=== PATIENT | female | born 2000 | race Caucasian/White ===

== ENCOUNTER 2021-05-11 13:58 | Emergency (ER) | payer OTHER, SELFPAY ==
--- NOTE | 2021-05-11 14:00 | ED.FEMALEGU ---
HPI - Female Genitourinary General Chief complaint: Urogenital-Female Stated complaint: Possible UTI Time Seen by Provider: 05/11/21 14:15 Source: patient and RN notes reviewed Mode of arrival: ambulatory Limitations: no limitations History of Present Illness HPI Narrative: 20-year-old female presents with concern for dysuria frequency and urgency. Reports symptoms started 2 days ago. She reports history of urinary tract infections. She reports abdominal discomfort, denies abdominal pain, back pain, fever. Denies intervention. MD elicited complaint: UTI Related Data Home Medications Medication Instructions Recorded Confirmed ergocalciferol (vitamin D2) 1,250 mcg PO WEEKLY 05/11/21 05/11/21 fluoxetine 40 mg PO DAILY 05/11/21 05/11/21 hydroxyzine HCl 25 mg PO Q6H PRN 05/11/21 05/11/21 levothyroxine 125 mcg PO DAILY 05/11/21 05/11/21 meloxicam 15 mg PO DAILY 05/11/21 05/11/21 Allergies Allergy/AdvReac Type Severity Reaction Status Date / Time No Known Allergies Allergy Verified 05/11/21 14:03 Review of Systems Review of Systems: CONSTITUTIONAL: Denies malaise, chills, sweats, or fever. GASTROINTESTINAL: Denies abdominal pain, nausea, vomiting, diarrhea, bloody, or mucous stools. GENITOURINARY: Reports suprapubic discomfort, frequency, dysuria. Denies urgency or hematuria. SKIN: Denies rash or itching. MUSCULOSKELETAL: Denies back pain or myalgia. All systems reviewed & are unremarkable except as noted in HPI and below PMFSH Comments At time of signature, agree with nursing past medical, surgical, social and family history. There is no relevant family history pertinent to the presenting complaint Exam Narrative: GENERAL: Well-appearing, well-nourished, and in no acute distress. HEAD: Normocephalic. EYES: PERRLA, conjunctivae clear. NECK: Supple. No lymphadenopathy CHEST: Clear to auscultation. No respiratory distress. HEART: Regular rate and rhythm. ABDOMEN: Soft, nontender upon palpation, nondistended, normal active bowel sounds, no palpable or pulsatile masses, no guarding. No CVA tenderness SKIN: Warm, dry, no rash. NEURO: Alert and oriented x3. PSYCH: Normal mood and affect Course Course Emergency Course: Patient is aware of diagnosis, understands and agrees to treatment plan. Anticipatory guidance given. Patient agrees to follow-up as directed and is aware of reasons to seek care at the emergency department. Portions of this record may have been created with voice recognition software Vital Signs Vital signs: Reviewed. MDM - Female Genitourinary MDM Narrative Medical decision making narrative: Exam findings and UA show no acute concerns or changes; patient is non-toxic appearing and is in no distress. Patient is appropriate for outpatient treatment and follow-up. Differential Diagnosis Differential diagnosis: Likely urinary tract infection and cystitis Critical Care Time Critical Care Time Critical Care Time: No Discharge Plan Discharge Clinical Impression: Symptoms of urinary tract infection Patient Disposition: Home, Self-Care Condition: Stable Instructions: Antibiotic Form, Urinary Tract Infection in Women (ED) Additional Instructions: We will send a urine culture to the lab; if the culture identifies an organism that the prescribed antibiotic will not treat, you will receive a phone call from an urgent care staff member and an appropriate antibiotic will be prescribed. -Your symptoms should begin to improve within a day of starting antibiotics. But you should finish all the antibiotic pills you get. Otherwise your infection might come back. -Also recommend: increase water intake. Tylenol/ibuprofen as needed for pain or fever -Follow-up with your primary care provider for urine recheck or seek ER visit if condition worsens with high fever, nausea, vomiting and severe back pain. Prescriptions: New nitrofurantoin monohyd/m-cryst [Macrobid] 100 mg capsule 100 mg PO Q12H
[2021-05-11 14:06] VITALS: BP 135/76; PULSE 88; RESP 18; TEMP 37.1; O2SAT 99
== END 2021-05-11 14:25 | disposition home or self-care (01) ==
PROVIDERS: Emergency Provider Nurse Practitioner; PCP Internal Medicine Geriatric Medicine
DX: R30.0 Dysuria (principal); R35.0 Frequency of micturition; R39.15 Urgency of urination; E03.9 Hypothyroidism, unspecified; E28.2 Polycystic ovarian syndrome; F41.9 Anxiety disorder, unspecified
CPT/HCPCS: 81003; 81025; 87086; 99203; G0463

== ENCOUNTER 2022-03-20 16:12 | Emergency (ER) | payer BC, SELFPAY ==
[2022-03-20 16:26] VITALS: BP 112/73; RESP 16; TEMP 37.1; O2SAT 100
[2022-03-20 16:35] VITALS: BP 112/73; RESP 16; TEMP 37.1; O2SAT 100
--- NOTE | 2022-03-20 17:53 | ED.URI ---
HPI - URI/Sore Throat General Chief Complaint: Upper Respiratory Infection Stated Complaint: sore throat Time Seen by Provider: 03/20/22 17:53 Source: patient, RN notes reviewed and old records reviewed Mode of arrival: ambulatory Limitations: no limitations History of Present Illness HPI Narrative: 21-year-old female who presents to [facility] with a history of 4 days of sore throat with painful swallowing, Patient denies any headache, nasal congestion, ear pain or cough, Patient reports history of strep throat in the past. Patient denies any fevers, chills,or sweats or body aches. Patient has not had COVID vaccinations or flu shot MD elicited complaint: sore throat Treatments prior to arrival: none Related Data Home Medications Medication Instructions Recorded Confirmed fluoxetine 40 mg capsule 20 mg PO DAILY 05/11/21 03/20/22 levothyroxine 125 mcg capsule 125 mcg PO DAILY 05/11/21 03/20/22 Allergies Allergy/AdvReac Type Severity Reaction Status Date / Time Sulfa (Sulfonamide Allergy Rash Verified 03/20/22 16:34 Antibiotics) Review of Systems Review of Systems: CONSTITUTIONAL: Denies fever, chills, or sweats. EYES: Denies visual changes, redness, or discharge. ENT: Denies rhinorrhea, congestion,positive sore throat, no otalgia. CARDIOVASCULAR: Denies chest pain, palpitations, or edema. RESPIRATORY: Denies cough or dyspnea. GASTROINTESTINAL: Denies abdominal pain, nausea, vomiting, or diarrhea. GENITOURINARY: Denies dysuria or hematuria. SKIN: Denies rash or itching. MUSCULOSKELETAL: Denies back pain, joint pain, or myalgia. NEUROLOGIC: Denies headache, numbness, or weakness. PSYCHIATRIC:Positive history of anxiety or depression. All systems reviewed & are unremarkable except as noted in HPI and below PMFSH Past Medical History Medical History (Updated 03/22/22 @ 20:13 by Lesvia Jaime NP) GERD (gastroesophageal reflux disease) Hypothyroidism PCOS (polycystic ovarian syndrome) Strep pharyngitis Surgical History Surgical History (Updated 03/22/22 @ 20:14 by Lesvia Jaime NP) No history of previous surgery Social History Social History (Updated 03/22/22 @ 20:15 by Lesvia Jaime NP) Smoking status: Never smoker Alcohol intake: current Alcohol use details: social Substance use: never Living arrangements: with family Gender identity (if verbalized by the patient): Female Comments At time of signature, agree with nursing past medical, surgical, social and family history. There is no relevant family history pertinent to the presenting complaint Exam Narrative: GENERAL: Well-appearing, well-nourished, and in no acute distress. HEAD: Normocephalic, atraumatic. EYES: PERRLA and EOMI. ENT: Nares clear, no rhinorrhea or epistaxis. Mucous membranes moist.TM's normal with good light reflex, throat red with no lesions tonsil enlarged and red NECK: Supple., lymphadenopathy CHEST: Clear to auscultation. No respiratory distress.SAO2 100% on room air HEART: Regular rate and rhythm. No murmur heard. Normal peripheral pulses. ABDOMEN: Soft, nontender, nondistended, normal active bowel sounds. EXTREMITIES: Normal range of motion. No edema. SKIN: Warm, dry, no rash. NEURO: No focal deficits. Alert and oriented x3. Course Course Level of Care: Express Care Visit Vital Signs Vital signs: Vital Signs Temperature 37.1 C 03/20/22 16:26 Respiratory Rate 16 03/20/22 16:26 Blood Pressure 112/73 03/20/22 16:26 Pulse Oximetry 100 03/20/22 16:26 Oxygen Delivery Room Air 03/20/22 16:26 Temperature 37.1 C 03/20/22 16:35 Respiratory Rate 16 03/20/22 16:35 Blood Pressure 112/73 03/20/22 16:35 Pulse Oximetry 100 03/20/22 16:35 Oxygen Delivery Room Air 03/20/22 16:35 MDM - URI/Sore Throat Differential Diagnosis Differential diagnosis: Likely upper respiratory infection, viral infection, pharyngitis and other (Tonsillitis,strep pharyngitis) Medical
== END 2022-03-20 18:15 | disposition home or self-care (01) ==
PROVIDERS: Emergency Provider Registered Nurse; PCP Internal Medicine Geriatric Medicine
DX: J03.90 Acute tonsillitis, unspecified (principal); K21.9 Gastro-esophageal reflux disease without esophagitis; E03.9 Hypothyroidism, unspecified; E28.2 Polycystic ovarian syndrome
CPT/HCPCS: 87081; 87880; 99213; G0463

== ENCOUNTER 2022-11-22 17:32 | Emergency (ER) | payer BC, SELFPAY ==
[2022-11-22 17:37] VITALS: BP 121/61; PULSE 84; RESP 18; TEMP 36.9; O2SAT 100
--- NOTE | 2022-11-22 17:55 | ED.URI ---
HPI - URI/Sore Throat General Chief Complaint: Upper Respiratory Infection Stated Complaint: sore throat sob Time Seen by Provider: 11/22/22 17:55 Source: patient and RN notes reviewed Mode of arrival: ambulatory Limitations: no limitations History of Present Illness HPI Narrative: 22-year-old female presented for complaint of sinus pressure, sore throat, nonproductive cough, endorses feeling short of breath when coughing. She reports when she is too active and she coughs more. She also reports she feels heaviness on her chest and occasional palpitations. endorses nausea and vomiting, which she relates to the . She is not taking anything for symptoms. She is lethargy, fevers or chills. She denies sick contacts. MD elicited complaint: cough Related Data Home Medications Medication Instructions Recorded Confirmed fluoxetine 40 mg capsule 20 mg PO DAILY 05/11/21 11/22/22 levothyroxine 125 mcg capsule 125 mcg PO DAILY 05/11/21 11/22/22 ondansetron 4 mg disintegrating See Rx Instructions .Route .COMPLEX 11/22/22 11/22/22 tablet vits 75-iron 28 mg-folic See Rx Instructions .Route .COMPLEX 11/22/22 11/22/22 acid 800 mcg-omega3 440 mg oral pack Allergies Allergy/AdvReac Type Severity Reaction Status Date / Time Sulfa (Sulfonamide Allergy Rash Verified 11/22/22 18:11 Antibiotics) Review of Systems Review of Systems: per HPI [facility] Past Medical History Medical History GERD (gastroesophageal reflux disease) Hypothyroidism PCOS (polycystic ovarian syndrome) Strep pharyngitis Surgical History Surgical History No history of previous surgery Social History Social History Smoking status: Never smoker Alcohol intake: current Alcohol use details: social Substance use: never Living arrangements: with family Gender identity (if verbalized by the patient): Female Exam Narrative: GENERAL: mildly Ill-appearing, nontoxic EYES: PERRLA, conjunctivae clear ENT: Mucous membranes moist. TM pearly mcleod with dull light reflex bilaterally; no tragal tenderness. Oropharynx erythematous without lesions or exudate, no drooling, no hoarseness, no trismus, uvula midline. NECK: Supple. No lymphadenopathy CHEST: Clear to auscultation, breath sounds equal. No wheezing, rhonchi, rales, or stridor. No respiratory distress, speaks in full sentences. HEART: Regular rate and rhythm. No murmur heard. SKIN: Warm, dry, no rash. NEURO: Alert and oriented x3. PSYCH: Normal mood and affect Course Course Emergency Course: Patient is aware of diagnosis, understands and agrees to treatment plan. Anticipatory guidance given. Patient agrees to follow-up as directed and is aware of reasons to seek care at the emergency department. Portions of this record may have been created with voice recognition software Level of Care: Express Care Visit Vital Signs Vital signs: Vital Signs Temperature 98.5 F 11/22/22 17:37 Pulse Rate 84 11/22/22 17:37 Respiratory Rate 18 11/22/22 17:37 Blood Pressure 121/61 11/22/22 17:37 Pulse Oximetry 100 11/22/22 17:37 Oxygen Delivery Room Air 11/22/22 17:37 Temperature 98.5 F 11/22/22 17:37 Pulse Rate 84 11/22/22 17:37 Respiratory Rate 18 11/22/22 17:37 Blood Pressure 121/61 11/22/22 17:37 Pulse Oximetry 100 11/22/22 17:37 Oxygen Delivery Room Air 11/22/22 17:37 reviewed MDM - URI/Sore Throat MDM Narrative Medical decision making narrative: strep negative. Covid negative. Results reviewed with patient. Patient had reported shortness of breath, chest heaviness, and heart racing sensation over the last 2 days. With these symptoms she is advised to the emergency room. However she states the symptoms are much better today. If they worsen she will go to
== END 2022-11-22 18:40 | disposition home or self-care (01) ==
PROVIDERS: Emergency Provider Nurse Practitioner Family; PCP Internal Medicine Geriatric Medicine
DX: J06.9 Acute upper respiratory infection, unspecified (principal); E03.9 Hypothyroidism, unspecified
CPT/HCPCS: 87081; 87880; 99213; G0463

== ENCOUNTER 2023-02-13 07:42 | Outpatient (RCR) | payer BC, SELFPAY ==
[2023-02-12 11:58] LABS: Hematocrit 35.7 % (37.0-47.0); Hemoglobin 11.9 g/dL (12.0-15.0)
[2023-02-12 12:40] LABS: Glucose 1 Hour PP 50gm Dose 99 mg/dL
[2023-02-12 13:52] LABS: HIV 1/2 Ab P24 Ag Result Negative (Negative)
[2023-02-13] MEDS: RHO(D) IMMUNE GLOBULIN 300 MCG/2 ML SYRINGE IM (11:04)
== END 2023-02-13 08:00 | disposition home or self-care (01) ==
LOC: ANHLAB 07:42
PROVIDERS: PCP Internal Medicine Geriatric Medicine; Visit Provider Obstetrics & Gynecology
DX: Z11.4 Encounter for screening for human immunodeficiency virus [HIV] (principal); Z29.13 Encounter for prophylactic Rho(D) immune globulin; O36.0130 Maternal care for anti-D [Rh] antibodies, third trimester, not applicable or unspecified; Z3A.00 Weeks of gestation of pregnancy not specified
CPT/HCPCS: 36415; 82947; 85014; 85018; 85461; 86703; 86850; 86900; 86901; 90384; 96372; G0432; J2790

== ENCOUNTER 2023-04-28 16:27 | Inpatient (IN) | payer BC, MEDICAID, SELFPAY ==
[2023-04-28] VITALS (21 sets, daily range): BP systolic 76–121; BP diastolic 56–86; PULSE 69–84; TEMP 36.6–36.8; BMI 36.3
--- NOTE | 2023-04-28 17:16 | LDADM ---
This patient, Amara Pompa, was admitted to Labor/Delivery/Recovery 104 on 04/28/23 at 16:27. Plans for labor, pain management and were discussed with patient. Patient/family oriented to hospital policies and general routines including ID bracelet, bed and alarms, visiting hours, pain management, procedures, bathroom and other care routines, personal items, smoking policy, room service/diet and guest tray routines, infant security routines, and visiting hours. Patient/Family are encouraged to report perceived risks to care and to ask questions if they do not understand what they are told or what they should do. See [facility] for further documentation.
--- NOTE | 2023-04-28 17:20 | WPDANESEPPF ---
Anes - Initial Pre Proc Eval Procedure: Labor Epidural Date/Time: 04/28/23 17:20 Surgeon: Yael Rader MD Pre Op Diagnosis: Labor Pain Pre Op Diagnosis: Induction of Labor Patient Data Age: 22 Gender: F Height: 1.57 m Weight: 90 kg Last Vital Signs O2 Del Method Room Air 04/28/23 17:13 Allergies Allergy/AdvReac Type Severity Reaction Status Date / Time Sulfa (Sulfonamide Allergy Rash Verified 04/10/23 15:30 Antibiotics) Home Medications Medication Instructions Recorded Confirmed Type fluoxetine 40 mg capsule 20 mg PO DAILY 05/11/21 11/22/22 History levothyroxine 125 mcg capsule 175 mcg PO DAILY 05/11/21 11/22/22 History ondansetron 4 mg disintegrating See Rx Instructions .Route 11/22/22 11/22/22 History tablet .COMPLEX PRN Nausea vits 75-iron 28 mg-folic See Rx Instructions .Route .COMPLEX 11/22/22 11/22/22 History acid 800 mcg-omega3 440 mg oral pack Patient hx anesthesia problems: none Family hx anesthesia problems: none Results Review: All pre-operative results and documents have been reviewed as part of the pre-operative evaluation. [facility] Past Medical History Medical History GERD (gastroesophageal reflux disease) Hypothyroidism PCOS (polycystic ovarian syndrome) Strep pharyngitis Surgical History Surgical History No history of previous surgery Family History Family History Grandparent Diabetes mellitus Social History Social History Smoking status: Never smoker Alcohol intake: current Alcohol use details: social Substance use: never Lack of Transportation: No Lack of Food: Never True Current Housing: I Have Housing Concerned About Future Housing: YES Difficulty Paying Gas/Electric Bills: No Difficulty Paying for Meds: No Currently Unemployed: No Education: Don't Know Difficulty w/ Childcare or Family Care: No Living arrangements: with family Gender identity (if verbalized by the patient): Female Spiritual care concerns: No Anes - Eval Final PreProcedure Day of Procedure 04/28/23 17:20 Patient weight: obese Heart: regular rate and rhythm Lungs: clear to auscultation Neurological: alert and oriented Results Review: All pre-operative results and documents have been reviewed as part of the pre-operative evaluation. Informed Consent: The patient's anesthetic plan and its attendant risks and benefits were discussed with the patient/family/POA. Questions were solicited and answers provided to the satisfaction of the patient/family/POA.
[2023-04-28 17:36] LABS: Basophils Percent Auto 0.3 % (0.2-1.2); Eosinophils Absolute Auto 0.4 K/mm3 (0-0.3); Eosinophils Percent Auto 3.5 % (0-4.4); Hematocrit 35.5 % (37.0-47.0); Hemoglobin 11.9 g/dL (12.0-15.0); Immature Granulocyte Absolute 0.04 K/mm3 (0.00-0.031); Immature Granulocyte Percent A 0.3 % (0-0.5); Lymphocytes Absolute Auto 2.47 K/mm3 (0.9-3.2); Lymphocytes Percent Auto 19.9 % (18.3-44.2); Mean Corpuscular HGB Conc 33.5 g/dl (32-36); Mean Corpuscular Hemoglobin 30.5 pg (26-34); Mean Platelet Volume 10.2 fl (7.4-10.4); Monocytes Absolute Auto 0.8 K/mm3 (0.1-0.6); Monocytes Percent Auto 6.4 % (2.6-8.5); Neutrophils Absolute Auto 8.6 K/mm3 (1.3-6.7); Neutrophils Percent Auto 69.6 % (45.5-73.1); Platelet Count Result 328 k/mm3 (150-375); Red Cell Distribution Width 13.3 % (11.5-14.5); White Blood Count 12.4 K/mm3 (4.5-10.0)
[2023-04-28] MEDS: miSOPROStol 25 MCG TABLET PO ×2 (18:10→22:19)
--- NOTE | 2023-04-28 18:14 | PM.IMHP ---
H&P: HPI History of Present Illness Date/Time: 04/28/23 18:14 Chief Complaint: induction of labor Narrative: Amara is a G1 at 39.0 here for elective IOL. complicated by hypothyroidism, CF carrier, RH neg, and anxiety and depression. Also has a slipped lumbar disk, imaging with on unit. GBS neg. Review of Systems Review of Systems: All systems reviewed & are unremarkable except as noted in HPI and below PMFSH Past Medical History Medical History GERD (gastroesophageal reflux disease) Hypothyroidism PCOS (polycystic ovarian syndrome) Strep pharyngitis Surgical History Surgical History No history of previous surgery Family History Family History Grandparent Diabetes mellitus Social History Social History Smoking status: Never smoker Alcohol intake: current Alcohol use details: social Substance use: never Lack of Transportation: No Lack of Food: Never True Current Housing: I Have Housing Concerned About Future Housing: YES Difficulty Paying Gas/Electric Bills: No Difficulty Paying for Meds: No Currently Unemployed: No Education: Don't Know Difficulty w/ Childcare or Family Care: No Living arrangements: with family Gender identity (if verbalized by the patient): Female Spiritual care concerns: No Meds Home Medications and Allergies Home Medications Medication Instructions Recorded Confirmed Type fluoxetine 40 mg capsule 20 mg PO DAILY 05/11/21 04/28/23 History levothyroxine 125 mcg capsule 175 mcg PO DAILY 05/11/21 04/28/23 History ondansetron 4 mg disintegrating See Rx Instructions .Route 11/22/22 04/28/23 History tablet .COMPLEX PRN Nausea vits 75-iron 28 mg-folic See Rx Instructions .Route .COMPLEX 11/22/22 04/28/23 History acid 800 mcg-omega3 440 mg oral pack Allergies Allergy/AdvReac Type Severity Reaction Status Date / Time Sulfa (Sulfonamide Allergy Rash Verified 04/10/23 15:30 Antibiotics) Vital Signs Vital Signs - 24 hr 04/28/23 17:13 04/28/23 17:32 04/28/23 17:27 Temperature 98 F Pulse Rate 84 Blood Pressure 117/72 Oxygen Delivery Room Air 04/28/23 17:46 04/28/23 18:01 Temperature Pulse Rate 78 81 Blood Pressure 118/71 121/76 Oxygen Delivery Exam Const: General: no acute distress Resp: Effort & Inspection: normal respiratory effort Auscultation: clear to auscultation bilaterally Cardio: Rate: regular rate Rhythm: regular rhythm GI: GI Palp: Yes Soft to palpation Extrem: General: normal to inspection H&P: Results Labs Labs: Short CBC 04/28/23 Range/Units 17:08 WBC 12.4 H (4.5-10.0) K/mm3 Hgb 11.9 L (12.0-15.0) g/dL Hct 35.5 L (37.0-47.0) % Plt Count 328 (150-375) k/mm3 Assessment and Plan Assessment and plan (1) Encounter for induction of labor: Code(s): Z34.90 - Encounter for supervision of normal , unspecified, unspecified trimester Status: Acute Plan GBS neg FHT category 1 cytotec x2 then pitocin had anesthesia consult peds to be notified of CF carrier, FOB not tested.
[2023-04-29] VITALS (190 sets, daily range): BP systolic 84–144; BP diastolic 49–107; PULSE 38–164; TEMP 36.4–37.1; O2SAT 82–100
[2023-04-29] MEDS: OXYTOCIN 30 UNITS/NS 500 ML 30 UNITS/500 ML BAG 6 UNITS IV CONT (02:37)
[2023-04-29] MEDS: LACTATED RINGERS 1,000 ML 125 ML IV CONT ×4 (02:38→20:03)
--- NOTE | 2023-04-29 07:30 | PM.OBPNLAB ---
Pain Control Date/time seen: 04/29/23 07:30 Pain control: tolerating well Pelvic Exam Dilation (cm): 1 Effacement (%): 50 station: -2 Amniotic membrane status: Ruptured (clear, IUPC placed) Status status: Category ll Comments: category 1 except for deceleration while on back for AROM. Assessment and Plan Assessment: induction ongoing Plan: continuous present management
[2023-04-29 08:31] LABS: Rapid Plasma Reagin Non-Reactive (NonReactive)
[2023-04-29] MEDS: ONDANSETRON INJ 4 MG/2 ML VIAL IV PUSH ×2 (09:52→16:56)
--- NOTE | 2023-04-29 10:12 | WPDANESEPP ---
Anes - Eval Pre Procedure Procedure: labor epidural Date/Time: 04/29/23 10:12 Preop Diagnosis: labor pain Pre Op Diagnosis: Induction of Labor Patient Data Age: 22 Gender: F Height: 1.57 m Weight: 90 kg Last Vital Signs Temp 37.1 C 04/29/23 02:00 Pulse 83 04/29/23 10:11 BP 117/71 04/29/23 10:11 Pulse Ox 99 04/29/23 10:11 O2 Del Method Room Air 04/28/23 17:13 Allergies Allergy/AdvReac Type Severity Reaction Status Date / Time Sulfa (Sulfonamide Allergy Rash Verified 04/10/23 15:30 Antibiotics) Home Medications Medication Instructions Recorded Confirmed Type fluoxetine 40 mg capsule 20 mg PO DAILY 05/11/21 04/28/23 History levothyroxine 125 mcg capsule 175 mcg PO DAILY 05/11/21 04/28/23 History ondansetron 4 mg disintegrating See Rx Instructions .Route 11/22/22 04/28/23 History tablet .COMPLEX PRN Nausea vits 75-iron 28 mg-folic See Rx Instructions .Route .COMPLEX 11/22/22 04/28/23 History acid 800 mcg-omega3 440 mg oral pack Laboratory Tests 04/28/23 17:08 WBC 12.4 H K/mm3 (4.5-10.0) RBC 3.90 L M/mm3 (4.2-5.4) Hgb 11.9 L g/dL (12.0-15.0) Hct 35.5 L % (37.0-47.0) MCV 91.0 fl (80-100) MCH 30.5 pg (26-34) MCHC 33.5 g/dl (32-36) RDW 13.3 % (11.5-14.5) Plt Count 328 k/mm3 (150-375) MPV 10.2 fl (7.4-10.4) Immature Gran % (Auto) 0.3 % (0-0.5) Neut % (Auto) 69.6 % (45.5-73.1) Lymph % (Auto) 19.9 % (18.3-44.2) [place] % (Auto) 6.4 % (2.6-8.5) Eos % (Auto) 3.5 % (0-4.4) Baso % (Auto) 0.3 % (0.2-1.2) Lymph # (Auto) 2.47 K/mm3 (0.9-3.2) [place] # (Auto) 0.8 H K/mm3 (0.1-0.6) Eos # (Auto) 0.4 H K/mm3 (0-0.3) Baso # (Auto) 0.0 K/mm3 (0.0-0.1) Abs Immat Gran (auto) 0.04 H K/mm3 (0.00-0.031) Absolute Neuts (auto) 8.6 H K/mm3 (1.3-6.7) Absolute Nucleated RBC 0.0 K/mm3 (0.0-0.012) Nucleated RBC % 0.0 % (0.0-0.2) RPR Non-reactive (NonReactive) Blood Type B Negative Antibody Screen Negative Patient hx anesthesia problems: none Family hx anesthesia problems: none Results Review: All pre-operative results and documents have been reviewed as part of the pre-operative evaluation. [facility] Past Medical History Medical History GERD (gastroesophageal reflux disease) Hypothyroidism PCOS (polycystic ovarian syndrome) Strep pharyngitis Surgical History Surgical History No history of previous surgery Family History Family History Grandparent Diabetes mellitus Social History Social History Smoking status: Never smoker Alcohol intake: current Alcohol use details: social Substance use: never Lack of Transportation: No Lack of Food: Never True Current Housing: I Have Housing Concerned About Future Housing: YES Difficulty Paying Gas/Electric Bills: No Difficulty Paying for Meds: No Currently Unemployed: No Education: Don't Know Difficulty w/ Childcare or Family Care: No Living arrangements: with family Gender identity (if verbalized by the patient): Female Spiritual care concerns: No Comments patient has extensive chronic low back pain. reviewed MRI with dr. Molina and agreed epidural was appropriate to place. Did a thorough evaluation of back and discussed risks and benefits with patient. Patient agreed to proceed with epidural placement. [employer] went in L3-4 position. Patient had no parasthesia, pain, or complications with placement. Epidural was uncomplicated. Patient was experiencing bilateral hip and back pain pre placement of epidural and said this is her baseline pain with intermittent bilateral leg pain with labor. Patient was checked on after plac
--- NOTE | 2023-04-29 10:36 | WPDANESEPN ---
Anes - Epidural Procedure Note Date/Time: 04/29/23 0914 Consent: I have discussed with the patient/family/POA, the placement of an epidural catheter and the use of epidural narcotic/local anesthetic for labor analgesia and/or postoperative pain management, including associated potential risks, benefits, complications and side effects. I have discussed alternative methods of labor analgesia and/or postoperative pain management. The patient/family/POA, understand(s) and wish(es) to proceed with epidural narcotic/local anesthetic for labor analgesia and/or postoperative pain management. Time-Out: A pre-procedural Time-Out was completed immediately before starting the procedure and confirmed: Patient Identification, Site, Procedure, Patient Position and the Availability of Requisite Equipment. Clinical Indications: labor pain Epidural Insertion Note Patient position: sitting Skin prep: chlorhexidine Catheter: 19g Arrow FlexTip Plus Technique: Loss of resistance. Level of insertion: L3/4 Length in epidural space (cm): 6 Test dose: 1.5% Lidocaine with 1:[id number] Epi, negative for subarachnoid Inj and negative for intravascular Inj Complications: none
--- NOTE | 2023-04-29 13:27 | PC.NURSE ---
[id number] Introductions were made and G1 mother shared how she would like to feed her baby with . Encouraged mother to place infant [id number] until the first feeding if is stable and to wait on the weight to help stabilize, reduce infant stress, and improve latching by allowing time to explore parent's chest using instincts. Education was shared on how to protect her milk supply with latching and/or using hand expression to remove milk if doesn't latch in the first hour, then finger feed colostrum to the to preserve breast focus. Demonstration given on how to hand express using tool. Resources provided with educational trifold for bonding and feeding . Parents voiced understanding of information and to call if there is a request for assistance.
[2023-04-29] MEDS: diphenhydrAMINE HCl INJ 50 MG/ML VIAL 25 MG IV PUSH (20:03)
--- NOTE | 2023-04-29 22:41 | P.PCNOB_ITS ---
OB - Delivery Note Procedure Delivery date: 04/29/23 Procedure: Events: Elective Induction of Labor Intrapartal Events: Decelerations Induction method: AROM, Per Misoprostol Protocol and Per Pitocin Protocol Delivery monitor: External FHT and Internal Uterine Route of delivery: vacuum extraction Indication for instrumentation: nonreassuring FHR tracing Laceration Description: Vaginal (small) Delivery repair: vicryl Quantitative Blood Loss (ml): 210 Anesthesia type: Epidural Disposition: Floor Narrative: Baby was having deep variables. Great maternal pushing effort, but ROP presentation. Consented for vacuum delivery. With adequate expulsive efforts by the mother, the baby's head was delivered with one truss puller helper one contraction, zero pop offs after the baby spun to OA. The baby's anterior shoulder was delivered under the pubic symphysis without difficulty. The posterior shoulder and the rest of the baby delivered without difficulty. Thick meconium was noted with delivery of the baby's body. The was placed on the mothers chest and suctioned and stimulated. The cord was clamped and cut after 60 seconds. Mother and baby both stable. [place] Baby Date of : 04/29/23 Time of : 22:21 Weeks of gestation at delivery: 39 Infant gender: Female Weight (pounds): 6 Weight (ounces): 14 presentation: vertex Placenta delivery description: Spontaneous Cord Vessel Description: 3 Vessels and Delayed Cord Clamping score one minute: 8 score five minutes: 9
[2023-04-29] MEDS: OXYTOCIN 30 UNITS/NS 500 ML 30 UNITS/500 ML BAG 125 UNITS IV CONT (22:50)
[2023-04-29] MEDS: ACETAMINOPHEN 325 MG TABLET 650 MG PO (23:28)
[2023-04-29] MEDS: BENZOCAINE 20% AER SPR (*SP) 56 GM CAN 1 SPRAY TOPICAL (23:30)
[2023-04-29] MEDS: WITCH HAZEL 40 PADS 1 PAD TOPICAL (23:30)
[2023-04-30] VITALS (7 sets, daily range): BP systolic 105–118; BP diastolic 66–81; PULSE 66–84; RESP 16–18; TEMP 36.6–36.9; O2SAT 98–100
--- NOTE | 2023-04-30 01:42 | ADMGEN ---
This patient, Amara Pompa, was admitted to OB 2nd Floor Room 277-00. Patient/family oriented to hospital policies and general routines including ID bracelet, bed and alarms, visiting hours, pain management, procedures, bathroom and other care routines, personal items, smoking policy, room service/diet, and visiting hours. Information on how to activate the Rapid Response Team has been discussed. Patient/Family are encouraged to report perceived risks to care and to ask questions if they do not understand what they are told or what they should do.
[2023-04-30 05:31] LABS: Hematocrit 32.1 % (37.0-47.0); Hemoglobin 10.8 g/dL (12.0-15.0)
[2023-04-30] MEDS: LEVOTHYROXINE SODIUM 25 MCG TABLET PO (07:25)
[2023-04-30] MEDS: MULTIVIT/MIN/PREN/FOL AC/IRON TABLET 1 TAB PO (07:26)
[2023-04-30] MEDS: IBUPROFEN 600 MG TABLET PO (07:26)
[2023-04-30] MEDS: LEVOTHYROXINE SODIUM 150 MCG TABLET PO (07:26)
[2023-04-30] MEDS: FLUoxetine HCL 20 MG CAPSULE PO (07:26)
[2023-04-30] MEDS: DOCUSATE SODIUM 100 MG CAPSULE PO ×2 (07:26→16:34)
--- NOTE | 2023-04-30 07:36 | P.PNOB_ITS ---
OB - PN: Subj Subjective Date/time seen: 04/30/23 07:36 Patient comments: no complaints and pain well controlled baby status: doing well [place] feeding status: breast and bottle feeding OB - PN: Obj Data Labs 04/30/23 04:48 Labs: Laboratory Results - last 24 hr 04/28/23 04/30/23 17:08 04:48 Hgb 10.8 L Hct 32.1 L RPR Non-reactive OB - PN A/P Plan day: 1 Plan: routine care Comments: consult today home tomorrow Time Spent With Patient Time: Total time spent is greater than 50% in coordination of care (as documented) at patient's floor/unit and/or counseling patient: Time with patient: less than 15 minutes Exam Narrative: NAD abdomen soft, nontender, fundus firm below the umbilicus Extremities nontender, 1+ edema
--- NOTE | 2023-04-30 07:51 | WPDANLDPN2 ---
Anes-Prog Note L&D Date/Time: 04/30/23 07:51 Comfortable throughout: labor and delivery Neuraxial method: epidural Epidural/Spinal procedure site: clean & non-tender Neuro status: Neuro function grossly intact. Cardiovascular status: normal Respiratory status: normal Airway patency: baseline Mental status: baseline Post-Op hydration status: normal Vital Signs: Last Vital Signs Temp 98.0 F 04/30/23 05:07 Pulse 73 04/30/23 05:07 Resp 18 04/30/23 05:07 BP 118/78 04/30/23 05:07 Pulse Ox 100 04/29/23 22:20 O2 Del Method Room Air 04/30/23 01:45 Pain score (VAS): 0/10 I/O: Intake & Output 04/29/23 04/29/23 04/30/23 15:59 23:59 07:59 Intake Total 1999 1000 Output Total 210 200 Balance 1999 790 -200 Post-procedural complaints: none Patient feedback: Patient satisfied with anesthetic care.
--- NOTE | 2023-04-30 11:21 | PC.NURSE ---
[id number] Re-introductions were made and mother states some feedings have been better than others. is in the nursery for Beer Cooler assessment. Mother has decided to breast/bottle feeding her , however, states that her infant latched and breastfed for 10 minutes without pain and did very well. Reviewed milk production and protecting the milk supply with removal of milk frequently. Mother voiced understanding of calling for assistance if the infant doesn't latch, is sleepy reluctant to breastfeed, or there's is pain with the latch. Reported to the Primary RN
[2023-04-30] MEDS: ACETAMINOPHEN 325 MG TABLET 650 MG PO ×2 (12:12→18:27)
[2023-05-01] MEDS: ACETAMINOPHEN 325 MG TABLET 650 MG PO ×2 (04:01→10:22)
[2023-05-01] MEDS: FLUoxetine HCL 20 MG CAPSULE PO (07:28)
[2023-05-01] MEDS: LEVOTHYROXINE SODIUM 150 MCG TABLET PO (07:28)
[2023-05-01] MEDS: DOCUSATE SODIUM 100 MG CAPSULE PO (07:28)
[2023-05-01] MEDS: LEVOTHYROXINE SODIUM 25 MCG TABLET PO (07:28)
[2023-05-01] MEDS: MULTIVIT/MIN/PREN/FOL AC/IRON TABLET 1 TAB PO (07:28)
--- NOTE | 2023-05-01 08:09 | PM.OBPNVD ---
OB - PN: Subj Subjective Date/time seen: 05/01/23 08:09 Patient comments: no complaints, pain well controlled and tolerating diet OB - PN: Obj Data Labs 04/30/23 04:48 OB - PN A/P Plan day: 2 Plan: routine care and discharge home Time Spent With Patient Time: Total time spent is greater than 50% in coordination of care (as documented) at patient's floor/unit and/or counseling patient: Exam Const: General: comfortable and no acute distress Resp: Effort & Inspection: normal respiratory effort Auscultation: no rales, no rhonchi and no wheezes Cardio: Rate: regular rate Heart sounds: no click, no murmurs and no rubs GI: GI Palp: Yes Soft to palpation and No Tenderness to palpation present (GI) Auscultation: normal bowel sounds Extrem: General: normal to inspection, no pedal edema and no calf tenderness
--- NOTE | 2023-05-01 08:10 | PM.OBDSVD ---
DS: Admitting Diagnosis Discharge Date May 01, 2023 Admitting Diagnosis term DS: Discharge Diagnosis Discharge Diagnosis (1) Term : Code(s): Z34.90 - Encounter for supervision of normal , unspecified, unspecified trimester Status: Acute OB - DS: Summary OB Procedures : None OB Procedures Intrapartum: Spontaneous Vag Delivery OB Procedures: : None Time Spent with Patient Time attestation: Total time spent providing and/or coordinating discharge services: Discharge Plan Discharge Discharging Clinician: Ghanshyam Gorman Patient Disposition: Home, Self-Care Activity: pelvic rest Diet: regular Patient Instructions: Antibiotic Form Stand Alone Forms: General Discharge Information Follow-up/Referrals: Ghanshyam Gorman MD [Physician] - Discharge Medications: Continued fluoxetine 40 mg capsule 20 mg PO DAILY levothyroxine 125 mcg capsule 175 mcg PO DAILY ondansetron 4 mg tablet,disintegrating See Rx Instructions .ROUTE .COMPLEX PRN (Reason: Nausea) Rx Instructions: as prescribed Daily [phone] mg-mcg-mg Combo Pack See Rx Instructions .ROUTE .COMPLEX Rx Instructions: as prescribed Date of admission: 04/28/23 16:27 Primary Care Provider: Tonia,Becki Admitting Provider: Yael Rader Attending physician on admission: Yael Rader Condition: Stable
[2023-05-01 08:20] VITALS: BP 125/82; PULSE 74; RESP 16; TEMP 37.2; O2SAT 100
--- NOTE | 2023-05-01 10:24 | PC.NURSE ---
Patient viewed the discharge video Mother & Baby Care, The First Two Weeks . Patient was given the opportunity and encouraged to ask questions. Patient verbalized understanding of information shared and has been given the mother/baby guide for home reference.
[2023-05-02 13:47] VITALS: BP 125/83; PULSE 88; RESP 18; TEMP 36.9; O2SAT 100
== END 2023-05-01 11:33 | disposition home or self-care (01) | DRG 807 ==
LOC: ANHOB2 05-01 10:27 → ANHLDR 05-02 10:00 → ANHOB2 05-02 10:00
PROVIDERS: Admitting Provider Obstetrics & Gynecology; PCP Internal Medicine Geriatric Medicine; Visit Provider Obstetrics & Gynecology
DX: O26.893 Other specified pregnancy related conditions, third trimester (principal); Z37.0 Single live birth; Z3A.39 39 weeks gestation of pregnancy; Z14.1 Cystic fibrosis carrier; Z67.91 Unspecified blood type, Rh negative; O77.0 Labor and delivery complicated by meconium in amniotic fluid; O71.4 Obstetric high vaginal laceration alone; O36.8330 Maternal care for abnormalities of the fetal heart rate or rhythm, third trimester, not applicable or unspecified; O99.344 Other mental disorders complicating childbirth; F32.A Depression, unspecified; F41.9 Anxiety disorder, unspecified; O99.284 Endocrine, nutritional and metabolic diseases complicating childbirth; E03.9 Hypothyroidism, unspecified; O99.892 Other specified diseases and conditions complicating childbirth; M51.26 Other intervertebral disc displacement, lumbar region
CPT/HCPCS: 36415; 85014; 85018; 85025; 86592; 86850; 86900; 86901; A9270; J1200; J2405; J2590; J2795; J7120

== ENCOUNTER 2025-05-04 08:10 | Emergency (ER) | payer BC, SELFPAY ==
[2025-05-04 08:14] VITALS: BP 118/73; PULSE 72; RESP 16; TEMP 36.4; O2SAT 100
--- OUTSIDE RECORDS SUMMARY | 2025-05-04 08:20 | XMS_ITS | Encounter Summary ---
Author Organization [facility] Address [address] [place] [address] Phone Care Team Providers Care Customer Support Consultant Name Role Phone Nupur Noonan MD Primary Care Provider [phone] Becki Randall MD Primary Care Provider + [phone] Brenda Stringer MD Unavailable [phone] Esther Aguilar MD Unavailable [phone] José Dominguez Unavailable Frankie Jewell MD Unavailable [phone] Encounter Details Date Type Department Care Team (Late st Contact Info) Description 08/22/2017 Orders Only [facility] [address] [place] [address] Becki Randall MD [address] [place] [id number] Social History Tobacco Use Types Packs/Day Years Used Date Smoking Tobacco: Never Assessed Comments Unknown Sex and Gender Information Value Date Recorded Sex Assigned at Not on file Legal Sex Female 3:39 PM ZIPPER SETTER CHAINSTITCH Gender Identity Not on file Sexual Orientation Not on file documented as of this encounter Plan of Treatment Not on file documented as of this encounter Procedures Procedure Name Priority Date/Time Associated Diagnosis Comments SCAN - LABS 08/22/2017 2:39 PM ZIPPER SETTER CHAINSTITCH documented in this encounter Results * SCAN - LABS (08/22/2017 2:39 PM ZIPPER SETTER CHAINSTITCH) us Becki Randall MD Final Resu lt documented in this encounter Visit Diagnoses Not on filedocumented in this encounter Care Teams Customer Support Consultant Relationship Specialty Start Date End Date Nupur Noonan MD [address] [place] [address] PCP - General 01/07/17 10/13/17 Becki Randall MD [address] [place] [address] PCP - General Internal Medicine 10/14/17 Brenda Stringer MD [address] [place] [address] Gynecology 10/14/17 Esther Aguilar MD [address] [place] [address] Surgeon Anesthesiology 10/14/17 José Dominguez OD [address] [place] [address] Optometry 10/14/17 Frankie Jewell MD [address] [place] [address] Referring Physician Neurosurgery 10/16/20 documented as of this encounter
--- OUTSIDE RECORDS SUMMARY | 2025-05-04 08:20 | XMS_ITS | Encounter Summary ---
Author Organization [facility] Address [address] [place] [address] Phone Care Team Providers Care Raker Buffing Wheel Name Role Phone Nupur Noonan MD Primary Care Provider [phone] Becki Radnall MD Primary Care Provider + [phone] Brenda Stringer MD Unavailable [phone] Esther Aguilar MD Unavailable [phone] José Dominguez Unavailable Frankie Jewell MD Unavailable [phone] Encounter Details Date Type Department Care Team (Late st Contact Info) Description 08/22/2017 Orders Only [facility] [address] [place] [address] Becki Randall MD [address] [place] [id number] Social History Tobacco Use Types Packs/Day Years Used Date Smoking Tobacco: Never Assessed Comments Unknown Sex and Gender Information Value Date Recorded Sex Assigned at Not on file Legal Sex Female 3:39 PM AIR FORCE SENIOR OFFICER Gender Identity Not on file Sexual Orientation Not on file documented as of this encounter Plan of Treatment Not on file documented as of this encounter Procedures Procedure Name Priority Date/Time Associated Diagnosis Comments SCAN - LABS 08/22/2017 2:39 PM AIR FORCE SENIOR OFFICER documented in this encounter Results * SCAN - LABS (08/22/2017 2:39 PM AIR FORCE SENIOR OFFICER) us Becki Randall MD Final Resu lt documented in this encounter Visit Diagnoses Not on filedocumented in this encounter Care Teams Raker Buffing Wheel Relationship Specialty Start Date End Date Nupur Noonan MD [address] [place] [address] PCP - General 01/07/17 10/13/17 Becki Randall MD [address] [place] [address] PCP - General Internal Medicine 10/14/17 Brenda Stringer MD [address] [place] [address] Gynecology 10/14/17 Esther Aguilar MD [address] [place] [address] Surgeon Anesthesiology 10/14/17 José Dominguez OD [address] [place] [address] Optometry 10/14/17 Frankie Jewell MD [address] [place] [address] Referring Physician Neurosurgery 10/16/20 documented as of this encounter
--- OUTSIDE RECORDS SUMMARY | 2025-05-04 08:20 | XMS_ITS | Referral Summary ---
Author Organization [facility] [address] Address [address] [place] [address] Phone Care Team Providers Care Bridge Tender Name Role Phone Becki Randall MD Primary Care Provider [phone] Brenda Stringer MD Unavailable [phone] Esther Aguilar MD Unavailable [phone] José Dominguez OD Unavailable Frankie Jewell MD Unavailable [phone] Encounters Date Type Department Care Team Description 04/11/2025 Telephone [employer] [employer] [facility] [address] [place] [address] Cindy Gonsales, TRANSPLANT NURSE from Last 3 Months Allergies Active Allergy Reactions Criticality Noted Date Comments Sulfamethoxazole Hives Medium Reaction: 8, 99 hives, Medications FLUoxetine (PROzac) 20 mg capsule Take 20 mg by mouth daily Active levothyroxine (SYNTHROID) 50 mcg tablet Take 1 daily 30 tablet 1 05/08/2022 Active Active Problems Problem Noted Date Diagnosed Date Visit for screening 04/04/2023 Syncope 05/08/2022 Gastroesophageal reflux disease 03/19/2022 Overview (03/19/2022): Added automatically from request for surgery [id number] Assessment & Plan (07/07/2023 8:56 PM CDT): Continue omeprazole as rxd, see plan for RUQ pain above. Nausea and vomiting 08/15/2021 Assessment & Plan (08/15/2021 5:00 PM TRANSPORTATION WORKER): After discussion today, we will go ahead and get first a blood test. If this is negative, we will proceed with a CT of the abdomen and pelvis with contrast. We will also refer her to GI as well. We will also get a CBC and CMP today. She should see Dr. BRYAN sometime after October 16 for her annual appt. Thoracic spinal stenosis 10/13/2020 Overview (10/16/2020): 2017 fell down 1 step onto the midthoracic spine Treated by Dr. Aguilar pain management with successful injections Refer to Dr. Avni Jewell October 2020 T11-12 spinal stenosis on MRI October 2020 the, From the MRI T 10-11: Shallow central disc protrusion slightly indenting the ventral thecal sac. No spinal canal stenosis. Neural foraminal stenosis. T11-12: Small-moderate left subarticular disc protrusion slightly indenting the left eccentric ventral spinal cord. Mild bilateral facet arthropathy. Mild left eccentric spinal canal stenosis. No neural foraminal stenosis. LUMBAR CORD/CAUDA: Normal in size and signal intensity with conus medullaris termination at L1. Chronic midline thoracic back pain 09/21/2020 Thoracolumbar back pain 08/22/2020 Assessment & Plan (08/22/2020 3:32 PM TRANSPORTATION WORKER): Patient presents with acute low back pain mid lumbar spine with some radiation to the buttocks. Reflexes intact. She has limited ROM with flexion and rotation of the lumbar spine. Xray done at ER and no acute fracture or misalignment noted. She will continue with pain medication, steroids and muscle relaxer as prescribed to ER. She will be referred for chiropractic management and physical therapy. Will return in 4 weeks for follow up or sooner if needed. RUQ abdominal pain 02/01/2020 Assessment & Plan (07/07/2023 8:55 PM CDT): Worse in the last 3 weeks, see HPI for details. Labs from ER on 06/17/23 were unremarkable. No recent imaging. Tenderness diffusely to epigastric and RUQ. positive Peralta's sign. No mass or other acute findings. Will order RUQ US to r/o gallbladder disease/stones, mass, or any other acute structural changes. Continue Omeprazole daily and Tums PRN. [place] diet- low acid, no greasy or spicy. Kyrie ivan or kyrie containing foods may help with nausea. Stay hydrated. Irritable bowel syndrome with diarrhea 0 PCOS (polycystic ovarian syndrome) 10/14/2017 Overview (10/14/2017): Images from the original note were not included. Followed by Dr. Stringer with hormone monitoring, control pills, Pelvic sonogram (-) Primary amenorrhea 10/14/2017 Overview (10/14/2017): Evaluated by Dr. Stringer diagnosed with polycystic ovary syndrome and stop started menses after hormonal management with Provera. Then was followed up on control pills Obesity (BMI 30-39.9) 08/09/2017 Overview (08/30/2017): Images from the original note were not included. PCOS labs from Dr. Torres December 2016 Hypothyroidism, adult 08/20/2011 Overview (01/09/2017): Hypothyroid Resolved Problems Problem Noted Date Diagnosed Date Resolved Date Rectal bleeding 03/19/2022 07/07/2023 Overview (03/19/2022): Added automatically from request for surgery [id number] Bloody stools 03/08/2022 07/07/2023 Assessment & Plan (03/08/2022 3:35 PM CDT): Patient presents with reports of bright red stools x 2 weeks. She reports noted on toilet paper and in the stool. She has also reported some clots. On exam guaiac is positive with pink mucus like stool observed. She has no obvious hemorrhoids on exam. She does admit to some nausea at times (this is chronic) and feeling lightheaded recently. On exam she is afebrile and VSS. She had CT last year at [facility] that was without acute finding. She denies any current NSAID use and reports only took prescribed mobic twice. Discussed with Dr. Fonseca given associated symptoms we will do labs today to look for any anemia, abnormal electrolytes or LFTs. Will also check inflammatory markers. We will refer to GI as well. Did stress with patient should symptoms progress or worsen over the weekend she should go directly to the ER. Patient voiced understanding. Allergic reaction 01/01/2021 07/07/2023 Assessment & Plan (01/01/2021 10:57 AM CDT): Pt was cutting trails and burning brush on Friday and then reports that yesterday she began to feel itchy and noticed a rash forming on her chest, abdomen and L arm. This morning she reports that she woke up with eyelid swelling. She denies any difficulty breathing or any problems swallowing today. Pt states that she thinks this is poison saniya. We will give her 80mg depomedrol today. I have encouraged her to continue benadryl as she has been. I have advised that she is to go to the ER if the swelling does not improve as she may need IV meds. She verbalized understanding. Intractable vomiting 01/17/2020 020 Assessment & Plan (01/17/2020 4:06 PM CDT): Etiology unclear at this time. We will do urine HCG as she does report that she is 2 weeks late on menstrual cycle despite compliance with control. We will also do CBC and CMP to r/o any infectious source and electrolyte disturbance. If test negative will proceed with further imaging studies of the abdomen. At this time she was encouraged to push her fluids and keep her diet bland with the BRAT diet. Informed patient will call her tomorrow with test results and further orders Diarrhea 01/17/2020 04/17/2020 Assessment & Plan (01/17/2020 4:08 PM CDT): Etiology unclear at this time. Stool for guaiac was negative. Labs are pending. If urine negative will need possible CT of the abdomen pelvis to r/o any possible obstruction, cholecystitis or inflammatory source. Patient is to call or proceed to ER with worsening or persistent symptoms. Understanding verbalized. Cause of injury, fall 10/14/20172019 Overview (10/14/2017): Images from the original note were not included. Lumbar spine pain after fall down 1 stair at [facility] Periodontal disease 10/14/2017 07/07/20 23 Infectious warts 03/27/2015 08/09/2017 Overview (01/10/2017): Warts Delayed menarche 08/10/2013 08/09/2017 Overview (01/09/2017): Delayed menarche Heartburn 12/30/2012 08/09/2017 Overview (01/10/2017): Heart burn Myopia 07/06/2012 08/09/2017 Overview (01/09/2017): Myopia Sinusitis 07/06/2012 08/09/2017 Overview (01/09/2017): Sinusitis Vitamin D deficiency 07/06/2012 017 Overview (01/09/2017): Vitamin D deficiency disease History of glandular fever 07/06/2012 1 10/09/2016 Overview (01/09/2017): History of infectious mononucleosis Immunizations Immunization Administration Dates Next Due DTaP 05/10/2003, 9,1998,09/18,1998 Hep B, Adolescent or Pediatric 1998,1997,1998 Hib (HbOC) 08/24/1999, 9,1998,07/19 IPV 05/10/2003, 9,1998,07/19 Influenza, Split 08/10/2013,07/06/2012 Influenza, Trivalent, Cell Culture-based MDCK, Preservative Free, Antibiotic Free, Intramuscular 07/20/2014 Influenza, Trivalent, IM (MDV) 07/12/2015,2010 Influenza, Unspecified 09/07/2020 MMR 05/10/2003,05/23/1999 Meningococcal MCV4P (Menactra) 08/30/2014 Meningococcal Polysaccharide (Menomune) 08/21/2011 Tdap 04/17/2020,08/21/2010 Social History Tobacco Use Types Packs/Day Years Used Date Smoking Tobacco: Never Smokeless Tobacco: Never Tobacco Cessation:Counseling Given: Yes Alcohol Use Standard Drinks/Week Comments Yes 0 (1 standard drink = 0.6 oz pur e alcohol) occassional AUDIT-C Answer Date Recorded Q1: How often do you have a drink containing alc ohol? Monthly or less 03/27/2022 Q2: How many drinks containi ng alcohol do you have on a typical day when you are drinking? 1 or 2 03/27/2022 Q3: How often do you have si x or more drinks on one occasion? Never 03/27/2022 PHQ-2 Answer Date Recorded PHQ-2 Total Score (If total score is 3 or more points, staff should administer the PHQ-9) 0 03/19/2022 Comments No Sex and Gender Information Value Date Recorded Sex Assigned at Not on file Legal Sex Female 3:39 PM TRANSPORTATION WORKER Gender Identity Not on file Sexual Orientation Not on file Last Filed Vital Signs Vital Sign Reading Time Taken Comments Blood Pressure 100/62 07/07/2023 2:25 PM CDT Pulse 72 07/07/2023 2:25 PM CDT Temperature 36.5 C (97.7 F) 07/07/2023 2:25 PM CDT Respiratory Rate 16 07/07/2023 2:25 PM CDT Oxygen Saturation 99% 07/07/2023 2:25 PM CDT Inhaled Oxygen Concentration - - Weight 80.7 kg (178 lb) 07/07/2023 2:25 PM CDT Height 157.5 cm (5' 2) 05/08/2022 8:30 AM CDT Body Mass Index 32.56 05/08/2022 8:30 AM CDT Plan of Treatment Not on file Insurance [employer] [facility] [employer] [place] [facility] [employer] [place] Advance Directives For more information, please contact: [phone] Documents on File Type Date Recorded Patient Superannuation Clerk Expl anation ADVANCE DIRECTIVE 04/17/2020 POWER OF A [employer] Care Teams Bridge Tender Relationship Specialty Start Date End Date Becki Randall MD PCP - General Internal Medicine 10/14/17 Brenda Stringer MD [address] [place], [place] [id number] Gynecology 10/14/17 Esther Aguilar MD [address] [place] [address] Surgeon Anesthesiology 10/14/17 José Dominguez OD [address] [place] [address] Optometry 10/14/17 Frankie Jewell MD [address] [place] [address] Referring Physician Neurosurgery 10/16/20
--- OUTSIDE RECORDS SUMMARY | 2025-05-04 08:20 | XMS_ITS | Clinical Summary ---
Author Organization [facility] Address [address] [place] [address] Phone Care Team Providers Care Manager Port Name Role Phone Becki Randall MD Primary Care Provider [phone] Allergies Active Allergy Reactions Criticality Noted Date Comments Sulfa (Sulfonamide Antibiotics) Unknown 06/2021 Sulfamethoxazole-Trimethoprim Unknown 2020 Medications levothyroxine 100 mcg tablet Take 100 mcg by mouth daily in the morning. Active FLUoxetine (PROzac) 20 mg tablet Take 20 mg by mouth daily. Active Active Problems No known active problems Family History Medical History Relation Name Comments Lung Cancer Maternal Grandfather Diabetes Maternal Grandmother Type II Heart Disease Maternal Grandmother High Cholesterol Maternal Grandmother Uterine Cancer Maternal Grandmother Colon Cancer Paternal Grandfather Ovarian Cancer Paternal Grandmother Relation Name Status Comments Maternal Grandfather Maternal Grandmother Paternal Grandfather Paternal Grandmother Social History Tobacco Use Types Packs/Day Years Used Date Smoking Tobacco: Never Smokeless Tobacco: Never Alcohol Use Standard Drinks/Week Comments Yes 0 (1 standard drink = 0.6 oz pur e alcohol) Comments Unknown Sex and Gender Information Value Date Recorded Sex Assigned at Not on file Legal Sex Female 1:51 PM TACK PULLER Gender Identity Not on file Sexual Orientation Not on file Last Filed Vital Signs Vital Sign Reading Time Taken Comments Blood Pressure 96/81 11/28/2020 10:57 AM TACK PULLER Pulse 89 11/28/2020 10:57 AM TACK PULLER Temperature 37 C (98.6 F) 11/28/2020 10:57 AM TACK PULLER Respiratory Rate - - Oxygen Saturation - - Inhaled Oxygen Concentration - - Weight 88 kg (194 lb) 11/28/2020 10:57 AM TACK PULLER Height 157.5 cm (5' 2) 11/28/2020 10:57 AM TACK PULLER Body Mass Index 35.48 11/28/2020 10:57 AM TACK PULLER Plan of Treatment Health Maintenance Due Date Last Done Comments HPV VACCINES (1 - 3-dose series) 2013 DTAP/TDAP/TD VACCINES (1 - Tdap) 2017 HEPATITIS B VACCINES (1 of 3 - 19+ 3-dose series) 05/06 CERVICAL CANCER SCREENING 2019 HPV/Cotest (21-29) 2019 PAP SMEAR 2019 INFLUENZA VACCINE (#1) 2025 Care Teams Manager Port Relationship Specialty Start Date End Date Becki Randall MD [address] [place] [address] PCP - General Internal Medicine 10/18/20
--- OUTSIDE RECORDS SUMMARY | 2025-05-04 08:20 | XMS_ITS | Clinical Summary ---
Author Organization [facility] [address] Address [address] [place] [address] Phone Care Team Providers Care Supersonic Engineer Name Role Phone Becki Randall MD Primary Care Provider [phone] Brenda Stringer MD Unavailable [phone] Esther Aguilar MD Unavailable [phone] José Dominguez OD Unavailable Frankie Jewell MD Unavailable Allergies Active Allergy Reactions Criticality Noted Date [...] (03/19/2022): Added automatically from request for surgery [id number] Assessment & Plan (07/07/2023 8:56 PM CDT): Continue omeprazole as rxd, see plan for RUQ pain above. Nausea and vomiting 08/15/2021 Assessment & Plan (08/15/2021 5:00 PM 1ST GRADE TEACHER): After discussion today, we will go ahead [...] 08/22/2020 Assessment & Plan (08/22/2020 3:32 PM 1ST GRADE TEACHER): Patient presents with acute low back pain [...] changes. Continue Omeprazole daily and Tums PRN. Richardson diet- low acid, no greasy or spicy. [...] (03/19/2022): Added automatically from request for surgery [id number] Bloody stools 03/08/2022 07/07/2023 Assessment & Plan [...] pain after fall down 1 [address] at [facility] Periodontal disease 10/14/2017 07/07/20 23 Infectious warts 03/27/2015 08/09/2017 Overview (01/10/2017): Warts Delayed menarche 08/10/2013 08/09/2017 Overview (01/09/2017): Delayed menarche Heartburn 12/30/2012 08/09/2017 Overview (01/10/2017): Heart burn Myopia 07/06/2012 08/09/2017 Overview (01/09/2017): Myopia Sinusitis 07/06/2012 08/09/2017 Overview (01/09/2017): Sinusitis Vitamin D deficiency 07/06/2012 017 Overview (01/09/2017): Vitamin D deficiency disease History of glandular fever 07/06/2012 1 10/09/2016 Overview (01/09/2017): History of infectious mononucleosis Encounters Date Type Department Care Team Description 04/11/2025 Telephone [employer] [facility] [address] [place] [id number] Cindy Gonsales, CARBON COATER MACHINE OPERATOR from Last 3 Months Immunizations Immunization Administration Dates Next Due DTaP 05/10/2003, 9,1998,09/18,1998 Hep B, Adolescent or Pediatric 1998,1997,1998 Hib (HbOC) 08/24/1999, 9,1998,07/19 IPV 05/10/2003, 9,1998,07/19 Influenza, Split 08/10/2013,07/06/2012 Influenza, Trivalent, Cell Culture-based MDCK, Preservative Free, Antibiotic Free, Intramuscular 07/20/2014 Influenza, Trivalent, IM (MDV) 07/12/2015,2010 Influenza, Unspecified 09/07/2020 MMR 05/10/2003,05/23/1999 Meningococcal MCV4P (Menactra) 08/30/2014 Meningococcal Polysaccharide (Menomune) 08/21/2011 Tdap 04/17/2020,08/21/2010 Surgical History Surgery Date Site/Laterality Comments OTHER SURGICAL HISTORY 7-4 40 wks to 24 y G1: Vaginal delivery [facility] COLONOSCOPY 03/27/2022 (-) HEIDI Paulino (-) colonoscopy done for blood in stool ESOPHAGOGASTRODUODENOSCOPY 03/27/2022 (-) HEIDI Paulino done for blood in the stool Medical History Medical History Date Comments Hx Other Medical 1998 7-4 40 wks to [age] y G1 Hx Other Medical 2009 R ankle injury Hx Other Medical 2006 Concussion Hypothyroid 2009 PCOS (polycystic ovarian syndrome) 2015 GERD (gastroesophageal reflux disease) Family History Medical History Relation Name Comments Hyperlipidemia Other 1 Family histor y of Hyperlipidemia; Allergies Other 2 Family history of Allergies; Diabetes Other 3 Family history of Diabetes mellitus; Hypertension Other 4 Family history of Hypertension; Other Other 5 No family histo ry of Sudden <50; Stroke Other 6 Family history of Stroke; Colon cancer Other 7 family history Lung cancer Other 7 family history Ovarian cancer Other 7 family histor y Relation Name Status Comments Other 1 Other 2 Other 3 Other 4 Other 5 Other 6 Other 7 Social History Tobacco Use Types Packs/Day Years [...] on file Legal Sex Female 3:39 PM 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 GRADE TEACHER Gender Identity Not on file Sexual Orientation Not on file Obstetrics History Last Filed Vital Signs Vital Sign Reading [...] 05/08/2022 8:30 AM CDT Plan of Treatment Health Maintenance Due Date Last Done Comments Varicella Vaccines (1 of 2 - 13+ 2-dose series) 2011 HPV Vaccines (1 - 3-dose series) 2013 Regular Well Visit/Exam 18-64 04/17/2021 04/17/2020, 10/14/2017 Depression Screening 03/19/2023 03/19/2022 Cervical Cancer Screening 09/23/2023 09/23/2022 Influenza Vaccine (#1) 2025 , 07/12/2015, 07/20/2014, Additional history exists DTaP/Tdap/Td Vaccine (9 - Td or Tdap) 04/23/2033 04/23/2023, 04/17/2020, 08/21/2010, Additional history exists Hepatitis B Screening Completed 1998 , 1998, 1998 Hepatitis C Screening Completed 10/18/2023 Pneumococcal vaccine <65 Aged Out No longer eligible based on patient's age to complete this topic Insurance [employer] CLAIMS [employer] [place] [facility] [employer] [place] [facility] Advance Directives For more information, please contact: [phone] Documents on File Type Date Recorded Patient Crawler Dragline Operator Expl anation ADVANCE DIRECTIVE 04/17/2020 POWER OF A [employer] Care Teams Supersonic Engineer Relationship Specialty Start Date End Date Becki Randall MD PCP - General Internal Medicine 10/14/17 Brenda Stringer MD [address] [place], [place] [id number] Gynecology 10/14/17 Esther Aguilar MD [address] [place], [place] [id number] Surgeon Anesthesiology 10/14/17 José Dominguez, DELORIS [address] [place] [address] Optometry 10/14/17 Frankie Jewell MD [address] [place] [address] Referring Physician Neurosurgery 10/16/20
--- OUTSIDE RECORDS SUMMARY | 2025-05-04 08:20 | XMS_ITS | Encounter Summary ---
Author Organization [facility] Address [address] [place] [address] Phone Care Team Providers Care Oiling Machine Operator Name Role Phone Nupur Noonan MD Primary Care Provider [phone] Becki Randall MD Primary Care Provider + [phone] Brenda Stringer MD Unavailable [phone] Esther Aguilar MD Unavailable [phone] José Dominguez Unavailable Frankie Jewell MD Unavailable [phone] Encounter Details Date Type Department Care Team (Late st Contact Info) Description 08/22/2017 Orders Only [facility] [address] [place] [address] Becki Randall MD [address] [place] [id number] Social History Tobacco Use Types Packs/Day Years Used Date Smoking Tobacco: Never Assessed Comments Unknown Sex and Gender Information Value Date Recorded Sex Assigned at Not on file Legal Sex Female 3:39 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 Gender Identity Not on file Sexual Orientation Not on file documented as of this encounter Plan of Treatment Not on file documented as of this encounter Procedures Procedure Name Priority Date/Time Associated Diagnosis Comments SCAN - LABS 08/22/2017 2:39 PM CARAMEL CUTTER HAND documented in this encounter Results * SCAN - LABS (08/22/2017 2:39 PM CARAMEL CUTTER HAND) us Becki Randall MD Final Resu lt documented in this encounter Visit Diagnoses Not on filedocumented in this encounter Care Teams Oiling Machine Operator Relationship Specialty Start Date End Date Nupur Noonan MD [address] [place] [address] PCP - General 01/07/17 10/13/17 Becki Randall MD [address] [place] [address] PCP - General Internal Medicine 10/14/17 Brenda Stringer MD [address] [place] [address] Gynecology 10/14/17 Esther Aguilar MD [address] [place] [address] Surgeon Anesthesiology 10/14/17 José Dominguez OD [address] [place] [address] Optometry 10/14/17 Frankie Jewell MD [address] [place] [address] Referring Physician Neurosurgery 10/16/20 documented as of this encounter
--- OUTSIDE RECORDS SUMMARY | 2025-05-04 08:20 | XMS_ITS | Encounter Summary ---
Author Organization [facility] Address [address] [place] [address] Phone Care Team Providers Care Hand Router Operator Name Role Phone Nupur Noonan MD Primary Care Provider [phone] Becki Randall MD Primary Care Provider + [phone] Brenda Stringer MD Unavailable [phone] Esther Aguilar MD Unavailable [phone] José Dominguez Unavailable Frankie Jewell MD Unavailable [phone] Encounter Details Date Type Department Care Team (Late st Contact Info) Description 08/22/2017 Orders Only [facility] [address] [place] [address] Becki Randall MD [address] [place] [id number] Social History Tobacco Use Types Packs/Day Years Used Date Smoking Tobacco: Never Assessed Comments Unknown Sex and Gender Information Value Date Recorded Sex Assigned at Not on file Legal Sex Female 3:39 PM ELECTION WATCHER Gender Identity Not on file Sexual Orientation Not on file documented as of this encounter Plan of Treatment Not on file documented as of this encounter Procedures Procedure Name Priority Date/Time Associated Diagnosis Comments SCAN - LABS 08/22/2017 2:40 PM ELECTION WATCHER documented in this encounter Results * SCAN - LABS (08/22/2017 2:40 PM ELECTION WATCHER) us Becki Randall MD Final Resu lt documented in this encounter Visit Diagnoses Not on filedocumented in this encounter Care Teams Hand Router Operator Relationship Specialty Start Date End Date Nupur Noonan MD [address] [place] [address] PCP - General 01/07/17 10/13/17 Becki Randall MD [address] [place] [address] PCP - General Internal Medicine 10/14/17 Brenda Stringer MD [address] [place] [address] Gynecology 10/14/17 Esther Aguilar MD [address] [place] [address] Surgeon Anesthesiology 10/14/17 José Dominguez OD [address] [place] [place] [address] Optometry 10/14/17 Frankie Jewell MD [address] [place] [place] [address] Referring Physician Neurosurgery 10/16/20 documented as of this encounter
--- OUTSIDE RECORDS SUMMARY | 2025-05-04 08:20 | XMS_ITS | Encounter Summary ---
Author Organization [facility] Address [address] [place] [address] Phone Care Team Providers Care Junior Software Developer Name Role Phone Nupur Noonan MD Primary Care Provider [phone] Becki Randall MD Primary Care Provider + [phone] Brenda Stringer MD Unavailable [phone] Esther Aguilar MD Unavailable [phone] José Dominguez Unavailable [phone] Frankie Jewell MD Unavailable [phone] Encounter Details Date Type Department Care Team (Late st Contact Info) Description 08/22/2017 Orders Only [facility] [address] [place] [address] Becki Randall MD [address] [place] [id number] Social History Tobacco Use Types Packs/Day Years Used Date Smoking Tobacco: Never Assessed Comments Unknown Sex and Gender Information Value Date Recorded Sex Assigned at Not on file Legal Sex Female 3:39 PM FIRST 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 Gender Identity Not on file Sexual Orientation Not on file documented as of this encounter Plan of Treatment Not on file documented as of this encounter Procedures Procedure Name Priority Date/Time Associated Diagnosis Comments SCAN - RADIOLOGY/IMAGING 08/22/2017 2:40 PM FIRST GRADE TEACHER documented in this encounter Results * SCAN - RADIOLOGY/IMAGING (08/22/2017 2:40 PM FIRST GRADE TEACHER) Anatomical Region Laterality Modality Other us Becki Randall MD Final Resu lt documented in this encounter Visit Diagnoses Not on filedocumented in this encounter Care Teams Junior Software Developer Relationship Specialty Start Date End Date Nupur Noonan MD [address] [place] [address] PCP - General 01/07/17 10/13/17 Becki Randall MD [address] [place] [address] PCP - General Internal Medicine 10/14/17 Brenda Stringer MD [address] [place], [place] [phone] Gynecology 10/14/17 Esther Aguilar MD [address] [place], [place] [phone] Surgeon Anesthesiology 10/14/17 José Dominguez OD [address] [place], [place] [address] Optometry 10/14/17 Frankie Jewell MD [address] [place] [address] Referring Physician Neurosurgery 10/16/20 documented as of this encounter
--- OUTSIDE RECORDS SUMMARY | 2025-05-04 08:20 | XMS_ITS | Clinical Summary ---
Author Organization [facility] Address [address] [place] [address] Phone Care Team Providers Care Geothermal Hvac Technician Name Role Phone Raulito Parker MD Unavailable Torri Hopson APRN, TECHNOLOGY PROGRAM MANAGER Primary Care Provider [phone] Allergies Active Allergy Reactions Criticality Noted Date Comments Sulfamethoxazole Hives Medium 04/27/2020 Reaction: 8, 99 hives, Medications levothyroxine (SYNTHROID) 50 MCG TabletIndication s:Hypothyroidism , unspecified type Take 1 Tablet by mouth daily. 90 Tablet 3 5 Active ergocalciferol (VITAMIN D) 20568 UNIT CapsuleIndicatio ns:Vitamin D Deficiency Take 1 Capsule by mouth once a week for 12 doses. Indications: Vitamin D Deficiency 4 Capsule 2 5 06/04/20 25 Active Active Problems Problem Noted Date Diagnosed Date Calculus of gallbladder with acute and chronic cholecystitis without obstruction 08/22/2023 Encounters Date Type Department Care Team Description 03/18/2025 Results Follow-Up [facility] - Family [facility] [address] [place] [address] Torri Hopson, WATER RESOURCES PROGRAM DIRECTOR, TECHNOLOGY PROGRAM MANAGER VITAMIN D, 25 HYDROXY TOTAL, THYROXINE (T4) FREE, CMP (COMPREHENSIVE METABOLIC PANEL), Additional followed-up results: 4 03/16/2025 12:45 PM CDT Office Visit [facility] [address] [place] [id number] Torri Hopson, RODRIGO ARREDONDO Hypothyroidism, unspecified type (Primary Dx); Pap smear for cervical cancer screening; PCOS (polycystic ovarian syndrome); Other fatigue; Wound of axillary region Discharge Disposition: Discharged to home or Selfcare 03/16/2025 Travel from Last 3 Months Family History Medical History Relation Name Comments No Known Problems Brother No Known Problems Daughter No Known Problems Father Thyroid Disease Maternal Aunt Grace Cancer Maternal Grandfather Ace Lung Lung Cancer Maternal Grandfather Ace Cancer Maternal Grandmother Fatoumata Uterine Diabetes Maternal Grandmother Fatoumata Hypertension Maternal Grandmother Fatoumata Thyroid Disease Maternal Grandmother Fatoumata Uterine Cancer Maternal Grandmother Fatoumata Hypothyroidism Mother Adriana Thyroid Disease Mother Adriana Cancer Paternal Grandfather Shivam Colon Colon Cancer Paternal Grandfather Shivam Cancer Paternal Grandmother Molly Ovarian Ovarian Cancer Paternal Grandmother Molly Relation Name Status Comments Brother Alive Daughter Alive Father Alive Maternal Aunt Grace Alive Maternal Grandfather Ace Maternal Grandmother Fatoumata Alive Mother Adriana Alive Paternal Grandfather Shivam Paternal Grandmother Molly Social History Tobacco Use Types Packs/Day Years Used Date Smoking Tobacco: Never Smokeless Tobacco: Never Tobacco Cessation:Counseling Given: No Alcohol Use Standard Drinks/Week Comments Yes 2 (1 standard drink = 0.6 oz pur e alcohol) rare [facility] Utilities Answer Date Recorded In the past 12 months has [employer], oil, or water Baihe threatened to shut off services in your home? No 11/22/2024 Social Connection and Isolation Panel Answer Date Recorded In a typical week, how many times do you talk on the phone with family, friends, or neighbors? More than three times a week 11/22/2024 How often do you get togethe r with friends or relatives? More than three times a week 11/22/2024 How often do you attend chur or sabianism services? Never 11/22/2024 Do you belong to any clubs o r organizations such as zoroastrian groups, unions, fraternal or athletic groups, or school groups? No 11/22/2024 How often do you attend meet ings of the clubs or organizations you belong to? Patient declined 11/22/2024 Are you , , di vorced, , never , or living with a partner? Never 11/22/2024 AUDIT-C Answer Date Recorded Q1: How often do you have a drink containing alc ohol? 2-4 times a month 11/22/2024 Q2: How many drinks containi ng alcohol do you have on a typical day when you are drinking? 1 or 2 11/22/2024 Q3: How often do you have si x or more drinks on one occasion? Less than monthly 11/22/2024 Overall Financial Resource Strain (CARDIA) Answe r Date Recorded How hard is it for you to pa y for the very basics like food, housing, medical care, and heating? Somewhat hard 11/22/2024 PHQ-2 Answer Date Recorded Total Score - Questions 1-9 0 11/06 [facility] Occupat ional [facility] - Occupational Stress Questionnaire Answer Date Recorded Do you feel stress - tense, restless, nervous, or anxious, or unable to sleep at night because your mind is troubled all the time - these days? Only a little 11/22/2024 Exercise Vital Sign Answer Date Recorde d On average, how many days pe r week do you engage in moderate to strenuous exercise (like a brisk walk)? 1 day 11/22/2024 On average, how many minutes do you engage in exercise at this level? 60 min 11/22/2024 Hunger Vital Sign Answer Date Recorded Within the past 12 months, y ou worried that your food would run out before you got the money to buy more. Never true 11/22/19 25 Within the past 12 months, t he food you bought just didn't last and you didn't have money to get more. Never true 11/22/2024 PRAPARE - Transportation Answer Date Re corded In the past 12 months, has l ack of transportation kept you from medical appointments or from getting medications? No 11/06 In the past 12 months, has l ack of transportation kept you from meetings, work, or from getting things needed for daily living? No 11/22/2024 Housing Stability Vital Sign Answer Jon e Recorded In the last 12 months, was t here a time when you were not able to pay the mortgage or rent on time? Yes 11/22/2024 In the past 12 months, how m any times have you moved where you were living? 0 11/22/2024 At any time in the past 12 m [facility], were you homeless or living in a [facility] (including now)? No 11/22/2024 Sexually Active Control Partners Comments Not Currently Male Condom Male Comments Unknown Sex and Gender Information Value Date Recorded Sex Assigned at Not on file Legal Sex Female 8:49 PM CDT Gender Identity Not on file Sexual Orientation Not on file Last Filed Vital Signs Vital Sign Reading Time Taken Comments Blood Pressure 108/66 03/16/2025 12:46 PM CDT Pulse 83 03/16/2025 12:46 PM CDT Temperature 36.4 C (97.6 F) 03/16/2025 12:46 PM CDT Respiratory Rate 16 03/16/2025 12:46 PM CDT Oxygen Saturation 97% 03/16/2025 12:46 PM CDT Inhaled Oxygen Concentration - - Weight 81.4 kg (179 lb 6.4 oz) 03/16/2025 12:46 PM CDT Height 157.5 cm (5' 2) 03/16/2025 12:46 PM CDT Body Mass Index 32.81 03/16/2025 12:46 PM CDT Plan of Treatment Upcoming Encounters Date Type Department Care Team (Late st Contact Info) Description 09/16/2025 9:30 AM CONCRETE MIXER OPERATOR HELPER Office Visit [facility] [address] [place] [address] Oegregoria, Torri N, WATER RESOURCES PROGRAM DIRECTOR, TECHNOLOGY PROGRAM MANAGER [address] [place] [place] [address] Health Maintenance Due Date Last Done Comments Human Papillomavirus (HPV) Immunization (1 - 3-dose series) 2013 Pap Smear 2019 SARS-COV-2 Immunization ( season) 2024 Influenza Immunization (#1) 2025 12/0 12/2019, 07/12/2015, 07/20/2014, Additional history exists Respiratory Syncytial Virus (RSV) Immunization (Adult) (1 - 1-dose 75+ series) 2073 Hepatitis B Immunization Completed 999, 1998, 1998 Meningococcal Immunization (ACWY) Completed 08/30/2014, 08/21/2011 DTaP/Tdap/Td Immunization Discontinued 2022, 04/17/2020, 08/21/2010, Additional history exists TdaP Immunization Completed 04/23/2023, , 08/21/2010 Hepatitis C Virus (HCV) Screening Completed 11/04/2023, 10/22/2022 Pneumococcal Immunization Combined Aged Out No longer eligible based on patient's age to complete this topic Rotavirus Immunization Aged Out No lo nger eligible based on patient's age to complete this topic Procedures Procedure Name Priority Date/Time Associated Diagnosis Comments CBC WITH AUTO DIFFERENTIAL Routine 03/16/2025 1:25 PM CDT PCOS (polycystic ovarian syndrome) THYROID SCREEN WITH REFLEX Routine 03/16/2025 1:25 PM CDT Hypothyroidism, unspecified type ANTI THYROID PEROXIDASE ANTIBODY Routine 03/16/2025 1:25 PM CDT Hypothyroidism, unspecified type THYROXINE (T4) FREE Routine 03/16/2025 1 :25 PM CDT Hypothyroidism, unspecified type COMPLETE BLOOD COUNT (CBC) WITH DIFF Routine 03/16/2025 1:25 PM CDT PCOS (polycystic ovarian syndrome) CMP (COMPREHENSIVE METABOLIC PANEL) Routine 03/16/2025 1:25 PM CDT PCOS (polycystic ovarian syndrome) THYROXINE (T4) FREE Routine 03/16/2025 1 :25 PM CDT Hypothyroidism, unspecified type THYROID SCREEN WITH REFLEX Routine 03/16/2025 1:25 PM CDT Hypothyroidism, unspecified type VITAMIN D, 25 HYDROXY TOTAL Routine 03/16/2025 1:25 PM CDT Other fatigue from Last 3 Months Results * VITAMIN D, 25 HYDROXY TOTAL (03/16/2025 1:25 PM CDT) VITAMIN D, 25 HYDROX 28.3 ng/mL 03/16/2025 3:59 PM CDT [facility] Blood Venipuncture / Unknown 03/16/2025 1:25 PM CDT 03/16/2025 3:15 PM CDT Narrative [facility] - 03/16/2025 3:59 PM CDT Published reference ranges for Vitamin D vary depending on time and place and method of testing, and on patient's age, sex, ethnicity and levels of other measured analytes such as parathormone, calcium and phosphorus. The result should be evaluated in conjunction with clinical findings and suspicions. [place] [employer] and [employer]ocrine Clinical Practice Guidelines: Status Vitamin D levels (ng/mL) Deficient <=20 At risk of inadequacy 21-29 Sufficient 30-100 Centers of Disease Control and Prevention Guidelines: Status Vitamin D levels (ng/mL) Deficient <13 At risk of inadequacy 13-19 Sufficient 20-50 Possibly harmful >50 References: [place] [employer], 2010 Dietary reference intakes for calcium and vitamin D. Fernández [place]: The National Academies Press. Amie M, Robert N, Ernestine FRENCH, et al., Evaluation, treatment, and prevention of Vitamin D deficiency: an Endocrinology Clinical Practice Guideline. JCEM 2011 96: 7 1996-1668. Silas A, Chun C, Kenny D, et al., Vitamin D Status: [place], 7310-1644, [facility] data brief, no. 59, MD Cheri: National Center for Health Statistics. 2010. january N Mark Anthony WATER RESOURCES PROGRAM DIRECTOR, TECHNOLOGY PROGRAM MANAGER CHEMISTRY ORDERABLES Binta l Result [facility] [address] [place] [address] * (ABNORMAL) THYROID SCREEN WITH REFLEX (03/16/2025 1:25 PM CDT) Pathologist [facility] TSH 7.505(H) 0.300 - 5.000 mIU/L 03/16/2025 3:59 PM CDT [facility] Blood Venipuncture / Unknown 03/16/2025 1:25 PM CDT 03/16/2025 3:16 PM CDT january N Oehl WATER RESOURCES PROGRAM DIRECTOR, TECHNOLOGY PROGRAM MANAGER CHEMISTRY ORDERABLES Binta l Result [facility] [address] [place] [address] * CBC WITH AUTO DIFFERENTIAL (03/16/2025 1:25 PM CDT) [facility] WBC 7.35 4.00 - 12.00 10(3)/mcL 03/16/2025 3:22 PM CDT [facility] RBC 4.65 3.80 - 5.30 10(6)/mcL 03/16/2025 3:22 PM CDT [facility] HEMOGLOBIN (HGB) 14.3 12.0 - 15.8 g/dL 03/16/2025 3:22 PM CDT [facility] HEMATOCRIT (HCT) 42.7 36.0 - 47.0 % 03/16/2025 3:22 PM CDT [facility] MCV 91.8 82.0 - 96.0 fL 03/16/2025 3:22 PM CDT [facility] MCH 30.8 26.0 - 34.0 pg 03/16/2025 3:22 PM CDT [facility] MCHC 33.5 31.0 - 36.0 g/dL 03/16/2025 3:22 PM CDT [facility] PLATELET COUNT 352 140 - 440 10(3)/mcL 03/16/2025 3:22 PM CDT [facility] RDW 12.4 11.8 - 15.5 % 03/16/2025 3:22 PM CDT [facility] MPV 10.0 9.7 - 12.4 fL 03/16/2025 3:22 PM CDT [facility] NEUTROPHILS 57.4 47.0 - 73.0 % 03/16/2025 3:22 PM CDT [facility] LYMPHOCYTES 29.7 18.0 - 42.0 % 03/16/2025 3:22 PM CDT [facility] MONOCYTES 8.0 4.0 - 12.0 % 03/16/2025 3:22 PM CDT [facility] EOSINOPHILS 3.9 0.0 - 5.0 % 03/16/2025 3:22 PM CDT [facility] BASOPHILS 1.0 0.0 - 1.0 % 03/16/2025 3:22 PM CDT [facility] ABSOLUTE NEUTROPHILS 4.22 1.60 - 7.70 10(3)/[facility] 03/16/2025 3:22 PM CDT [facility] ABSOLUTE LYMPHOCYTES 2.18 1.30 - 3.20 10(3)/[facility] 03/16/2025 3:22 PM CDT [facility] ABSOLUTE MONOCYTES 0.59 0.20 - 1.00 10(3)/[facility] 03/16/2025 3:22 PM CDT [facility] ABSOLUTE EOSINOPHIL 0.29 0.00 - 0.40 10(3)/[facility] 03/16/2025 3:22 PM CDT [facility] ABSOLUTE BASOPHILS 0.07 0.00 - 0.10 10(3)/[facility] 03/16/2025 3:22 PM CDT [facility] NRBC PER 100 WBC 0 03/16/20 3:22 PM CDT [facility] Blood Venipuncture / Unknown 03/16/2025 1:25 PM CDT 03/16/2025 3:16 PM CDT January N Oehl WATER RESOURCES PROGRAM DIRECTOR, TECHNOLOGY PROGRAM MANAGER HEMATOLOGY ORDERABLES Fin al Result [facility] [address] [place] [address] * THYROXINE (T4) FREE (03/16/2025 1:25 PM CDT) Only the most recent of2 resultswithin the time period is included. T4 FREE 0.8 0.7 - 1.9 ng/dL 03/16/2025 4:29 PM CDT [facility] Blood Venipuncture / Unknown 03/16/2025 1:25 PM CDT 03/16/2025 3:16 PM CDT january N Mark Anthony WATER RESOURCES PROGRAM DIRECTOR, TECHNOLOGY PROGRAM MANAGER CHEMISTRY ORDERABLES Binta l Result [facility] [address] [place] [address] * (ABNORMAL) CMP (COMPREHENSIVE METABOLIC PANEL) (03/16/2025 1:25 PM CDT) [facility] SODIUM 142 136 - 145 mmol/L 03/16/2025 3:42 PM CDT [facility] POTASSIUM 3.8 3.5 - 5.1 mmol/L 03/16/2025 3:42 PM CDT [facility] CHLORIDE 109(H) 98 - 107 mmol/L 03/16/2025 3:42 PM CDT [facility] CO2, VENOUS 24 22 - 30 mmol/L 03/16/2025 3:42 PM CDT [facility] ANION GAP 12.8 <18.0 mmol/L 03/16/2025 3:42 PM CDT [facility] GLUCOSE 84 70 - 99 mg/dL 03/16/2025 3:42 PM CDT [facility] BUN 12 5 - 18 mg/dL 03/16/2025 3:42 PM CDT [facility] CREATININE, BLOOD 0.88 0.60 - 1.00 mg/dL 03/16/2025 3:42 PM CDT [facility] BUN/CREATININE RATIO 14 12 - 20 ratio 03/16/2025 3:42 PM CDT [facility] TOTAL PROTEIN 7.1 6.0 - 8.0 g/dL 03/16/2025 3:42 PM CDT [facility] ALBUMIN 4.1 3.5 - 5.0 g/dL 03/16/2025 3:42 PM CDT [facility] A/G RATIO 1.4 1.0 - 2.2 03/16/2025 3:42 PM CDT [facility] CALCIUM 9.0 8.7 - 10.5 mg/dL 03/16/2025 3:42 PM CDT [facility] T BILI 0.6 0.2 - 1.2 mg/dL 03/16/2025 3:42 PM CDT [facility] SGOT (AST) 25 <43 U/L 03/16/2025 3:42 PM CDT [facility] SGPT (ALT) 25 <56 U/L 03/16/2025 3:42 PM CDT [facility] ALKALINE PHOSPHATASE 60 40 - 150 U/L 03/16/2025 3:42 PM T [facility] IS THE PATIENT REQUIRED TO BE FASTING? No 03/16/2025 3:42 PM CDT [facility] GFR, ESTIMATED >60 >=60 03/16/2025 3:42 PM CDT [facility] Comment: Creatinine Clearance is the preferred criteria for selecting drug dose adjustments in renally impaired patients. The GFR is provided as additional pertinent clinical information. GFR is reported in mL/min/1.73 sq m. Calculation based on the Chronic Kidney Disease Epidemiology Collaboration (CKD- EPI) equation refit without adjustment for race. GFR, EST. >60 >=60 025 3:42 PM CDT [facility] GFR, EST. NONAFRICAN >60 >=60 03/16/2025 3:42 PM T [facility] Blood Venipuncture / Unknown 03/16/2025 1:25 PM CDT 03/16/2025 3:15 PM CDT us January Mark Anthony ARREDONDO CNP CHEMISTRY ORDERABLES Binta l Result [facility] [address] [place] [address] * (ABNORMAL) ANTI THYROID PEROXIDASE ANTIBODY (03/16/2025 1:25 PM CDT) Thyroid peroxidase antibody 402(H) <6 IU/mL 03/16/2025 11:50 PM CDT [facility] Blood Venipuncture / Unknown 03/16/2025 1:25 PM CDT 03/16/2025 3:16 PM CDT us January Mark Anthony ARREDONDO CNP CHEMISTRY ORDERABLES Binta l Result Performing Organization Address City/[facility]/ZIP Co de Phone Number [facility] [address] [place] [address], [place] from Last 3 Months Insurance MEDICAID [place] Care Teams Geothermal Hvac Technician Relationship Specialty Start Date End Date Torri Hopson APRN, CNP [facility], [address] [address] PCP - General Advanced Practice Nurse 11/23/24 Raulito Parker MD [address] [place] [address] Consulting Physician Colon and Rectal Surgery 07/30/23
--- OUTSIDE RECORDS SUMMARY | 2025-05-04 08:20 | XMS_ITS | Clinical Summary ---
Author Organization [facility] Address [address] [address] Care Team Providers Care Account Support Analyst Name Role Phone Unavailable Primary Care Provider Unavailabl e Source Comments [facility],non-owned Affiliates and Associated Physician Practices is amultiple site organization consisting of ambulatory clinics and hospital sitesin [place], [place], [place] and [place]. This disclosure is being madepursuant to the Care Everywhere program and may not contain all information available regarding this patient. Last updated 18.[facility] Allergies Active Allergy Reactions Criticality Noted Date Comments Sulfa Drugs Other 11/14/2020 Medications * Be aware that medications may not be up to date on this document. Alwaysverify current medications with the patient. levothyroxine (SYNTHROID) 50 MCG tablet 50 mcg 07/06/2012 Active DEYSI 3-0.02 MG tablet TK 1 T PO QD 1 06/25/2017 Active metFORMIN ER 24hr (GLUCOPHAGE XR) 500 MG tablet TK 2 TS PO BID 0 03/31/2017 Active FLUoxetine (PROZAC) 20 MG capsule Take 20 mg by mouth once daily Active gabapentin (NEURONTIN) 300 MG capsule Take 300 mg by mouth 2 times daily 01/08/2022 Active Active Problems No known active problems Family History Medical History Relation Name Comments Thyroid Disease Mother Relation Name Status Comments Brother Alive Father Alive Mother Alive Social History Tobacco Use Types Packs/Day Years Used Date Smoking Tobacco: Never Smokeless Tobacco: Never Alcohol Use Standard Drinks/Week Comments No 0 (1 standard drink = 0.6 oz pur e alcohol) Comments Unknown Sex and Gender Information Value Date Recorded Sex Assigned at Not on file Legal Sex Female 10:58 AM CDT Gender Identity Not on file Sexual Orientation Not on file Occupation Industry Job Start Date Job End Date [employer] Not on file Not on file Not on f ile Last Filed Vital Signs Vital Sign Reading Time Taken Comments Blood Pressure - - Pulse - - Temperature - - Respiratory Rate - - Oxygen Saturation - - Inhaled Oxygen Concentration - - Weight 83 kg (183 lb) 03/14/2022 12:10 PM CDT Height 157.5 cm (5' 2) 03/14/2022 12:10 PM CDT Body Mass Index 33.47 03/14/2022 12:10 PM CDT Plan of Treatment Health Maintenance Due Date Last Done Comments HIV SCREENING 2013 HPV VACCINE (1 - 3-dose series) 2013 HEPATITIS C SCREENING 05/13/2016 DTAP/TDAP/TD VACCINES (1 - Tdap) 2017 HEPATITIS B VACCINE (1 of 3 - 19+ 3-dose series) 2017 PAP SMEAR 2019 COVID-19 VACCINE (1 - 2023-25 season) 2024 DEPRESSION SCREENING 10/06/2024 INFLUENZA VACCINE (#1) 2025 0, 07/12/2015, 07/20/2014, Additional history exists ZOSTER VACCINE (1 of 2) 2048 HIB VACCINE Aged Out No longer eligi ble based on patient's age to complete this topic MENINGOCOCCAL (Group B) VACCINE SHARED DECISION-MAKING Aged Out No longer eligible based on patient's age to complete this topic MENINGOCOCCAL GROUPS A/C/Y/W VACCINE Aged Out No longer eligible based on patient's age to complete this topic PNEUMOCOCCAL VACCINE Aged Out No long er eligible based on patient's age to complete this topic Insurance MEDICAID - [place] [employer]
--- OUTSIDE RECORDS SUMMARY | 2025-05-04 08:20 | XMS_ITS | Encounter Summary ---
Author Organization [facility] Address [address] [place] [address] Phone Care Team Providers Care Food Assembler Kitchen Name Role Phone Nupur Noonan MD Primary Care Provider [phone] Becki Randall MD Primary Care Provider + [phone] Brenda Stringer MD Unavailable [phone] Esther Aguilar MD Unavailable [phone] José Dominguez Unavailable Frankie Jewell MD Unavailable [phone] Encounter Details Date Type Department Care Team (Late st Contact Info) Description 08/22/2017 Orders Only [facility] [address] [place] [address] Becki Randall MD [address] [place] [id number] Social History Tobacco Use Types Packs/Day Years Used Date Smoking Tobacco: Never Assessed Comments Unknown Sex and Gender Information Value Date Recorded Sex Assigned at Not on file Legal Sex Female 3:39 PM FILM PRINTER Gender Identity Not on file Sexual Orientation Not on file documented as of this encounter Plan of Treatment Not on file documented as of this encounter Procedures Procedure Name Priority Date/Time Associated Diagnosis Comments SCAN - LABS 08/22/2017 2:39 PM FILM PRINTER documented in this encounter Results * SCAN - LABS (08/22/2017 2:39 PM FILM PRINTER) us Becki Randall MD Final Resu lt documented in this encounter Visit Diagnoses Not on filedocumented in this encounter Care Teams Food Assembler Kitchen Relationship Specialty Start Date End Date Nupur Noonan MD [address] [place] [address] PCP - General 01/07/17 10/13/17 Becki Randall MD [address] [place] [address] PCP - General Internal Medicine 10/14/17 Brenda Stringer MD [address] [place] [address] Gynecology 10/14/17 Esther Aguilar MD [address] [place] [address] Surgeon Anesthesiology 10/14/17 José Dominguez OD [address] [place] [address] Optometry 10/14/17 Frankie Jewell MD [address] [place] [address] Referring Physician Neurosurgery 10/16/20 documented as of this encounter
--- OUTSIDE RECORDS SUMMARY | 2025-05-04 08:20 | XMS_ITS | Encounter Summary ---
Author Organization [facility] Address [address] [place] [address] Phone Care Team Providers Care Psychopaedic Nurse Name Role Phone Becki Randall MD Primary Care Provider [phone] Brenda Stringer MD Unavailable [phone] Esther Aguilar MD Unavailable [phone] José Dominguez OD Unavailable Frankie Jewell MD Unavailable [phone] Encounter Details Date Type Department Care Team (Late st Contact Info) Description 09/27/2020 Orders Only [facility] [address] [place] [address] Scanning, Provider Social History Tobacco Use Types Packs/Day Years Used Date Smoking Tobacco: Never Smokeless Tobacco: Never Alcohol Use Standard Drinks/Week Comments Yes 0 (1 standard drink = 0.6 oz pur e alcohol) occassional Comments No Sex and Gender Information Value Date Recorded Sex Assigned at Not on file Legal Sex Female 3:39 PM ADVISOR ADVOCATE [employer]EL [employer] FOUNDER Gender Identity Not on file Sexual Orientation Not on file documented as of this encounter Plan of Treatment Not on file documented as of this encounter Procedures Procedure Name Priority Date/Time Associated Diagnosis Comments SCAN - RADIOLOGY/IMAGING 09/27/2020 documented in this encounter Results * SCAN - RADIOLOGY/IMAGING (09/27/2020) Anatomical Region Laterality Modality Other us Provider Scanning Final Result documented in this encounter Visit Diagnoses Not on filedocumented in this encounter Care Teams Psychopaedic Nurse Relationship Specialty Start Date End Date Becki Randall MD PCP - General Internal Medicine 10/14/17 Brenda Stringer MD [address] [place] [address] Gynecology 10/14/17 Esther Aguilar MD [address] [place] [address] Surgeon Anesthesiology 10/14/17 José Dominguez OD [address] [place] [address] Optometry 10/14/17 Frankie Jewell MD [address] [place] [address] Referring Physician Neurosurgery 10/16/20 documented as of this encounter
[2025-05-04 08:33] LABS: BEDSIDEPREGUCG Negative (Negative)
--- NOTE | 2025-05-04 08:33 | ED.NAVMDI ---
HPI - Nausea/Vomiting/Diarrhea General Chief complaint: Nausea/Vomiting/Diarrhea Stated complaint: Nausea/Dizziness Time Seen by Provider: 05/04/25 08:33 Source: patient Mode of arrival: ambulatory Limitations: no limitations History of Present Illness HPI Narrative: 24-year-old female presents with complaint of nausea and vomiting starting yesterday around 7:00 p.m.. Reports vomiting has stopped but continues to feel nauseated. Able to keep down water. No abdominal pain. Needs work note. All systems reviewed and negative except as noted above. Related Data Home Medications ?Medication ?Instructions ?Recorded ?Confirmed ?Last Taken ?Type fluoxetine 40 mg capsule 20 mg PO DAILY 05/11/21 05/04/25 04/28/23 History levothyroxine 125 mcg capsule 175 mcg PO DAILY 05/11/21 04/28/23 04/10/23 08:00 History Allergies Allergy/AdvReac Type Severity Reaction Status Date / Time Sulfa (Sulfonamide Allergy Rash Verified 05/04/25 08:24 Antibiotics) Review of Systems Review of Systems: CONSTITUTIONAL: Denies fever, chills, or sweats. EYES: Denies visual changes, redness, or discharge. ENT: Denies rhinorrhea, congestion, sore throat, or otalgia. CARDIOVASCULAR: Denies chest pain, palpitations, or edema. RESPIRATORY: Denies cough or dyspnea. GASTROINTESTINAL: Denies abdominal pain . Reports nausea, vomiting. Denies diarrhea. GENITOURINARY: Denies dysuria or hematuria. SKIN: Denies rash or itching. MUSCULOSKELETAL: Denies back pain, joint pain, or myalgia. NEUROLOGIC: Denies headache, numbness, or weakness. PSYCHIATRIC: Denies anxiety or depression. All other systems reviewed are negative, except as documented in HPI. [facility] Past Medical History Medical History GERD (gastroesophageal reflux disease) Hypothyroidism PCOS (polycystic ovarian syndrome) Strep pharyngitis Surgical History Surgical History No history of previous surgery Family History Family History Grandparent Diabetes mellitus Social History Social History Smoking status: Never smoker Alcohol intake: current Alcohol use details: social Substance use: never Lack of Transportation: No Lack of Food: Never True Current Housing: I Have Housing Concerned About Future Housing: YES Difficulty Paying Gas/Electric Bills: No Difficulty Paying for Meds: No Currently Unemployed: No Education: Don't Know Difficulty w/ Childcare or Family Care: No Living arrangements: with family Gender identity (if verbalized by the patient): Female Spiritual care concerns: No Comments At time of signature, agree with nursing past medical, surgical, social and family history. There is no relevant family history pertinent to the presenting complaint. Exam Narrative: GENERAL: This is a well-nourished, well-developed patient, in no apparent distress. HEAD: normocephalic, atraumatic. EYES: PERRL. Sclera clear/white. Vision is grossly intact. EARS: External ears normal NOSE: External nose normal NECK: Neck supple, non-tender without lymphadenopathy, masses or thyromegaly. CARDIOVASCULAR: Regular rate and rhythm without murmurs, gallops, or rubs. RESPIRATORY: Clear to auscultation. Breath sounds equal bilaterally. No wheezes, rales, or rhonchi. GASTROINTESTINAL: Abdomen soft, non-tender, nondistended. Bowel sounds are active. No hepato-splenomegaly, or palpable masses. No guarding. SKIN: warm, Dry, intact with no suspicious lesions or rash, good texture and turgor. NEURO: awake, alert, and oriented to person, place and time. There were no obvious focal neurologic abnormalities. EXTREMITIES: No joint tenderness, effusion, or edema noted. Course Course Level of Care: Express Care Visit Vital Signs Vital signs: Vital Signs Temperature 36.4 C L 05/04/25 08:14 Pulse Rate 72 05/04/25 08:14 Respiratory Rate 16 05/04/25 08:14 Blood Pressure 118/73 05/04/25 08:14 Pulse Oximetry 100 05/04/25 08:14 Oxygen Delivery Room Air 05/04/25 08:14 Temperature 36.4 C L 05/04/25 08:14 Pulse Rate 72 05/04/25 08:14 Respiratory Rate 16 05/04/25 08:14 Blood Pressure 118/73 05/04/25 08:14 Pulse Oximetry 100 05/04/25 08:14 Oxygen Delivery Room Air 05/04/25 08:14 reviewed MDM - Nausea/Vomiting/Diarrhea MDM Narrative Medical decision making narrative: patient is well-appearing, nontoxic. No abdominal tenderness on palpation. Will prescribe Zofran for nausea and vomiting. Differential Diagnosis Differential diagnosis: Likely food poisoning, gastroenteritis and dehydration Lab Data Labs: Lab Results 05/04/25 Range/Units 08:32 POC Urine HCG, Qual Negative (Negative) Discharge Plan Discharge Clinical Impression: Viral gastroenteritis Patient Disposition: Home Condition: Stable Instructions: Gastroenteritis (ED) Additional Instructions: your test was negative today. Take medication as prescribed to treat nausea and vomiting. This medication may cause constipation. Take Tylenol or ibuprofen every 6-8 hours as needed for pain and fever. Drink plenty of water and rest. See your doctor if symptoms are not improving. If you have severe abdominal pain or concern for dehydration go to the ER. Patient Language: [place] Citizen Prescriptions: New ondansetron 4 mg tablet,disintegrating 4 mg PO Q8H PRN (Reason: nausea and vomiting) Qty: 12 0RF No Action fluoxetine 40 mg capsule 20 mg PO DAILY levothyroxine 125 mcg capsule 175 mcg PO DAILY Follow-up/Referrals: PHYSICIAN NOT ON STAFF,NONSTAFF [Primary Care Provider] - Stand Alone Forms: Work/School Release IP Time of Disposition: 08:39
== END 2025-05-04 08:48 | disposition home or self-care (01) ==
PROVIDERS: Emergency Provider Nurse Practitioner Family
DX: A08.4 Viral intestinal infection, unspecified (principal); E03.9 Hypothyroidism, unspecified; E28.2 Polycystic ovarian syndrome; K21.9 Gastro-esophageal reflux disease without esophagitis
CPT/HCPCS: 81025; 99213; G0463

== ENCOUNTER 2025-08-18 08:12 | Emergency (ER) | payer BC, SELFPAY ==
--- NOTE | 2025-08-18 08:13 | ED.URI ---
HPI - URI/Sore Throat General Chief Complaint: Upper Respiratory Infection Stated Complaint: Sore Throat/Runny Nose/Vomiting Time Seen by Provider: 08/18/25 08:12 Source: patient Mode of arrival: ambulatory Limitations: no limitations History of Present Illness HPI Narrative: Amara is a 25 year old female patient presenting to the clinic today with c/o sore throat,productive cough, sinus pressure, runny nose, body aches, nausea, and vomiting. She reports body aches, nausea, and vomiting started yesterday, other symptoms started 10 days ago. Has not taken any medications for her symptoms. Is cough up green phlegm and blowing out green snot. Denies any chest pain or shortness of breath. Related Data Home Medications ?Medication ?Instructions ?Recorded ?Confirmed ?Last Taken ?Type fluoxetine 40 mg capsule 20 mg PO DAILY 05/11/21 05/04/25 04/28/23 History levothyroxine 125 mcg capsule 175 mcg PO DAILY 05/11/21 04/28/23 04/10/23 08:00 History Allergies Allergy/AdvReac Type Severity Reaction Status Date / Time Sulfa (Sulfonamide Allergy Rash Verified 08/18/25 08:18 Antibiotics) Review of Systems Review of Systems: Pertinent positives per HPI. Patient denies any fever, chills, rash, visual changes, dizziness, shortness of breath, chest pain, palpitations, diarrhea, constipation, abdominal pain, or any urinary issues. [facility] Past Medical History Medical History Strep pharyngitis PCOS (polycystic ovarian syndrome) GERD (gastroesophageal reflux disease) Hypothyroidism Surgical History Surgical History No history of previous surgery Family History Family History Grandparent Diabetes mellitus Social History Social History Alcohol intake: current Alcohol use details: social Substance use: never Lack of Transportation: No Lack of Food: Never True Current Housing: I Have Housing Concerned About Future Housing: YES Difficulty Paying Gas/Electric Bills: No Difficulty Paying for Meds: No Currently Unemployed: No Education: Don't Know Difficulty w/ Childcare or Family Care: No Living arrangements: with family Gender identity (if verbalized by the patient): Female Spiritual care concerns: No Comments At the time of my signature, I reviewed and agree with the nursing past medical, surgical, social, and family history. There is no relevant family history pertinent to the patient complaint. Exam Narrative: General: Well-developed, well nourished, in no apparent distress Head: Normocephalic, atraumatic Eyes: Pupils equally round and reactive to light bilaterally, EOM intact, sclera and conjunctive clear, no discharge, lids normal Ears: TMs intact, congested, and mildly red, ear canals clear, no drainage, grossly hearing normal. Nose: Nares patent, green nasal discharge, moderate to severe inflammation, maxillary frontal no sinus tenderness. Mouth: Oropharynx red without lesions or masses, good dentition, MMM. Postnasal drip Neck: Supple, trachea midline, no enlargement of anterior or posterior cervical nodes, no thyroid masses or goiter palpable. Cardio: Regular rate and rhythm, s1 and s2 normal, no murmur appreciated. Resp: Clear to auscultation bilaterally anteriorly and posteriorly, no rhonchi, rales, wheezing or rubs Course Course Emergency Course: Portions of this record may have been created with voice recognition software. Level of Care: Express Care Visit Vital Signs Vital signs: Vital Signs Temperature 36.7 C 08/18/25 08:17 Pulse Rate 86 08/18/25 08:17 Respiratory Rate 16 08/18/25 08:17 Blood Pressure 110/69 08/18/25 08:17 Pulse Oximetry 100 08/18/25 08:17 Oxygen Delivery Room Air 08/18/25 08:17 Temperature 36.7 C 08/18/25 08:17 Pulse Rate 86 08/18/25 08:17 Respiratory Rate 16 08/18/25 08:17 Blood Pressure 110/69 08/18/25 08:17 Pulse Oximetry 100 08/18/25 08:17 Oxygen Delivery Room Air 08/18/25 08:17 Vital signs reviewed MDM - URI/Sore Throat MDM Narrative Medical decision making narrative: At the time of visit patient is resting comfortably on the exam table. Patient appears to be nontoxic. C/o sore throat,productive cough, sinus pressure, runny nose, body aches, nausea, and vomiting. She reports body aches, nausea, and vomiting started yesterday, other symptoms started 10 days ago. Has not taken any medications for her symptoms. Is cough up green phlegm and blowing out green snot. Denies any chest pain or shortness of breath. On exam patient has bilateral TMs intact congestion, mildly red, green nasal drainage, moderate to severe inflammation of the anterior turbinates, tenderness to palpation over the frontal and maxillary sinuses, oral pharynx red with postnasal drip, lung sounds are clear, heart rates regular rate and rhythm, abdomen soft, pliable, nondistended, normal bowel sounds in all 4 quadrants, no organomegaly, and no CVAT tenderness. Plan: I suspect patient has acute bacterial rhino sinusitis. Prescription for prednisone, Augmentin, and Zofran was sent to the pharmacy. Supportive measures were discussed with the patient and they voiced understanding discharge instructions and agrees to treatment plan. Return precautions reviewed Differential Diagnosis Differential diagnosis: Likely upper respiratory infection, otitis media, sinusitis, viral infection, bronchitis, influenza, pharyngitis and other (Gastroenteritis, gastritis) Discharge Plan Discharge Clinical Impression: Acute bacterial rhinosinusitis Patient Disposition: Home Condition: Stable Instructions: Antibiotic Form, Rhinosinusitis (ED) Additional Instructions: Take prescription medications only as prescribed-Augmentin, ondansetron, and prednisone Increase fluids and stay well hydrated May take Tylenol or motrin as directed on bottle for pain/fever May use Flonase 1 spray in each nare daily May take OTC antihistamines such as Zyrtec or Claritin daily as directed on bottle May apply Vicks vapor rub to chest to open sinuses Sinus rinses for congestion Cepacol spray, cough drops, throat lozenges, warm tea with honey/lemon, gargle salt water to soothe throat BRAT diet for diarrhea Clear liquids x 24 hours then advance as tolerated for nausea/vomiting Go to the ED if you develop a worsening in your condition- high fever not controlled by Tylenol or Motrin, dehydration, weakness, lethargy, shortness of breath, or chest pain. Follow up with your PCP in 3-5 days if symptoms persist. Patient Language: Arabic Prescriptions: New prednisone 20 mg tablet 40 mg PO DAILY 5 Days Qty: 10 0RF amoxicillin-pot clavulanate 875-125 mg tablet 1 tablet PO Q12H 10 Days Qty: 20 0RF ondansetron 8 mg tablet,disintegrating 8 mg PO Q8H PRN (Reason: nausea and vomiting) 3 Days Qty: 10 0RF No Action fluoxetine 40 mg capsule 20 mg PO DAILY levothyroxine 125 mcg capsule 175 mcg PO DAILY Follow-up/Referrals: UNKNOWN,DOCTOR [Primary Care Provider] Stand Alone Forms: Work/School Release IP Time of Disposition: 08:26 Quality NIHSS Nursing Documentation ED NIHSS nursing documentation: reviewed/agree
--- OUTSIDE RECORDS SUMMARY | 2025-08-18 08:14 | XMS_ITS | Encounter Summary ---
Author Organization [facility] Address [address] [place] [address] Phone Care Team Providers Care Flower Cheniller Name Role Phone Nupur Noonan MD Primary Care Provider [phone] Becki Randall MD Primary Care Provider + [phone] Brenda Stringer MD Unavailable [phone] Esther Aguilar MD Unavailable [phone] José Dominguez Unavailable Frankie Jewell MD Unavailable [phone] Encounter Details Date Type Department Care Team (Late st Contact Info) Description 08/22/2017 Orders Only [facility] [address] [place] [address] Becki Randall MD [address] [place] [id number] Social History Tobacco Use Types Packs/Day Years Used Date Smoking Tobacco: Never Assessed Comments Unknown Sex and Gender Information Value Date Recorded Sex Assigned at Not on file Legal Sex Female 3:39 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 Gender Identity Not on file Sexual Orientation Not on file documented as of this encounter Plan of Treatment Not on file documented as of this encounter Procedures Procedure Name Priority Date/Time Associated Diagnosis Comments SCAN - LABS 08/22/2017 2:39 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 documented in this encounter Results * SCAN - LABS (08/22/2017 2:39 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) us Becki Randall MD Final Resu lt documented in this encounter Visit Diagnoses Not on filedocumented in this encounter Care Teams Flower Cheniller Relationship Specialty Start Date End Date Nupur Noonan MD [address] [place] [address] PCP - General 01/07/17 10/13/17 Becki Randall MD [address] [place] [address] PCP - General Internal Medicine 10/14/17 Brenda Stringer MD [address] [place] [address] Gynecology 10/14/17 Esther Aguilar MD [address] [place] [address] Surgeon Anesthesiology 10/14/17 José Dominguez OD [address] [place] [address] Optometry 10/14/17 Frankie Jewell MD [address] [place] [address] Referring Physician Neurosurgery 10/16/20 documented as of this encounter
--- OUTSIDE RECORDS SUMMARY | 2025-08-18 08:14 | XMS_ITS | Clinical Summary ---
Author Organization [facility] [address] Address [address] [place] [address] Phone Care Team Providers Care Cushion Former Name Role Phone Becki Randall MD Primary Care Provider [phone] Brenda Stringer MD Unavailable [phone] Esther Aguilar MD Unavailable [phone] José Dominguez OD Unavailable Frankie Jewell MD Unavailable [phone] Allergies Active Allergy Reactions Criticality Noted Date [...] (03/19/2022): Added automatically from request for surgery [id number] Assessment & Plan (07/07/2023 8:56 PM CDT): Continue omeprazole as rxd, see plan for RUQ pain above. Nausea and vomiting 08/15/2021 Assessment & Plan (08/15/2021 5:00 PM DEALER ACCOUNT MANAGER): After discussion today, we will go ahead [...] 08/22/2020 Assessment & Plan (08/22/2020 3:32 PM DEALER ACCOUNT MANAGER): Patient presents with acute low back pain [...] changes. Continue Omeprazole daily and Tums PRN. Blain diet- low acid, no greasy or spicy. [...] (03/19/2022): Added automatically from request for surgery [id number] Bloody stools 03/08/2022 07/07/2023 Assessment & Plan [...] pain after fall down 1 stair at [facility] Periodontal disease 10/14/2017 07/07/20 23 Infectious [...] on file Legal Sex Female 3:39 PM DEALER ACCOUNT MANAGER Gender Identity Not on file Sexual Orientation [...] of 2 - 13+ 2-dose series) 2011 Regular Well Visit/Exam 18-64 04/17/2021 04/17/2020, 10/14/2017 Depression Screening 03/19/2023 03/19/2022 Cervical Cancer Screening 09/23/2023 09/23/2022 HPV Vaccines (1 - 3-dose SCDM series) 2025 Influenza Vaccine (#1) 2025 , 07/12/2015, 07/20/2014, Additional history exists DTaP/Tdap/Td Vaccine (9 - Td or Tdap) 04/23/2033 04/23/2023, 04/17/2020, 08/21/2010, Additional history exists Hepatitis B Screening Completed 1998 , 1998, 1998 Hepatitis C Screening Completed 10/18/2023 Pneumococcal vaccine <65 Aged Out No longer eligible based on patient's age to complete this topic Insurance [employer] CLAIMS OFFICE [employer] [place] [facility] [employer] [place] [employer] [facility] Advance Directives For more information, please contact: [phone] Documents on File Type Date Recorded Patient Fuel System Maintenance Supervisor Expl anation ADVANCE DIRECTIVE 04/17/2020 POWER OF A [employer] Care Teams Cushion Former Relationship Specialty Start Date End Date Becki Randall MD PCP - General Internal Medicine 10/14/17 Brenda Stringer MD [address] [address] Gynecology 10/14/17 Esther Aguilar MD [address] [address] Surgeon Anesthesiology 10/14/17 José Dominguez OD [address] [place] [address] Optometry 10/14/17 Frankie Jewell MD [address] [place] [place] [address] Referring Physician Neurosurgery 10/16/20
--- OUTSIDE RECORDS SUMMARY | 2025-08-18 08:14 | XMS_ITS | Encounter Summary ---
Author Organization [facility] Address [address] [place] [address] Phone Care Team Providers Care Advanced Practice Rn Name Role Phone Nupur Noonan MD Primary Care Provider [phone] Becki Randall MD Primary Care Provider + [phone] Brenda Stringer MD Unavailable [phone] Esther Aguilar MD Unavailable [phone] José Dominguez Unavailable Frankie Jewell MD Unavailable [phone] Encounter Details Date Type Department Care Team (Late st Contact Info) Description 08/22/2017 Orders Only [facility] [address] [place] [address] Becki Randall MD [address] [place] [id number] Social History Tobacco Use Types Packs/Day Years Used Date Smoking Tobacco: Never Assessed Comments Unknown Sex and Gender Information Value Date Recorded Sex Assigned at Not on file Legal Sex Female 3:39 PM 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 ENGINEERING PROFESSOR Gender Identity Not on file Sexual Orientation Not on file documented as of this encounter Plan of Treatment Not on file documented as of this encounter Procedures Procedure Name Priority Date/Time Associated Diagnosis Comments SCAN - RADIOLOGY/IMAGING 08/22/2017 2:40 PM 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 ENGINEERING PROFESSOR documented in this encounter Results * SCAN - RADIOLOGY/IMAGING (08/22/2017 2:40 PM 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 ENGINEERING PROFESSOR) Anatomical Region Laterality Modality Other us Becki Randall MD Final Resu lt documented in this encounter Visit Diagnoses Not on filedocumented in this encounter Care Teams Advanced Practice Rn Relationship Specialty Start Date End Date Nupur Noonan MD [address] [place] [address] PCP - General 01/07/17 10/13/17 Becki Randall MD [address] [place] [address] PCP - General Internal Medicine 10/14/17 Brenda Stringer MD [address] [place], [place] [id number] Gynecology 10/14/17 Esther Aguilar MD [address] [place], [place] [id number] Surgeon Anesthesiology 10/14/17 José Dominguez OD [address] [place], [place] [address] Optometry 10/14/17 Frankie Jewell MD [address] [place] [address] Referring Physician Neurosurgery 10/16/20 documented as of this encounter
--- OUTSIDE RECORDS SUMMARY | 2025-08-18 08:14 | XMS_ITS | Encounter Summary ---
Author Organization [facility] Address [address] [place] [address] Phone Care Team Providers Care Recreation Therapy Aides Teacher Name Role Phone Nupur Noonan MD Primary Care Provider [phone] Becki Randall MD Primary Care Provider + [phone] Brenda Stringer MD Unavailable [phone] Esther Aguilar MD Unavailable [phone] José Dominguez Unavailable Frankie Jewell MD Unavailable [phone] Encounter Details Date Type Department Care Team (Late st Contact Info) Description 08/22/2017 Orders Only [facility] [address] [place] [address] Becki Randall MD [address] [place] [id number] Social History Tobacco Use Types Packs/Day Years Used Date Smoking Tobacco: Never Assessed Comments Unknown Sex and Gender Information Value Date Recorded Sex Assigned at Not on file Legal Sex Female 3:39 PM ADVERTISING STRATEGIST Gender Identity Not on file Sexual Orientation Not on file documented as of this encounter Plan of Treatment Not on file documented as of this encounter Procedures Procedure Name Priority Date/Time Associated Diagnosis Comments SCAN - LABS 08/22/2017 2:39 PM ADVERTISING STRATEGIST documented in this encounter Results * SCAN - LABS (08/22/2017 2:39 PM ADVERTISING STRATEGIST) us Becki Randall MD Final Resu lt documented in this encounter Visit Diagnoses Not on filedocumented in this encounter Care Teams Recreation Therapy Aides Teacher Relationship Specialty Start Date End Date Nupur Noonan MD [address] [place] [address] PCP - General 01/07/17 10/13/17 Becki Randall MD [address] [place] [address] PCP - General Internal Medicine 10/14/17 Brenda Stringer MD [address] [place] [address] Gynecology 10/14/17 Esther Aguilar MD [address] [place] [address] Surgeon Anesthesiology 10/14/17 José Dominguez OD [address] [place] [address] Optometry 10/14/17 Frankie Jewell MD [address] [place] [address] Referring Physician Neurosurgery 10/16/20 documented as of this encounter
--- OUTSIDE RECORDS SUMMARY | 2025-08-18 08:14 | XMS_ITS | Data Portability ---
Author Organization [facility] Address [address] [place] [address] Care Team Providers Care Tray Packer Name Role Phone FILOMENA SILVERMAN Primary Care Provider Assessment Encounter Date Assessment Date Assessment LastModified by Organization Details LastModified Time 05/27/2023 05/27/2023 Normal exam May resume normal activities contraceptive plan-- OCP FU for WWE 3 mos Not available 05/27/2023 12:49:48 Plan of Treatment Reminders Order Date Submit Date Provider Last Modified By Organization Details Last Modified Time Details Appointments None recorded. Lab hsv-1 igg Ab, serum 2023 024 [facility] (Lab), [address] [place], [address], 4 22:59:23 hsv-2 igg Ab, serum 2023 024 [facility] (Lab), [address] [place], [address], 4 22:59:23 hbcab (hepatitis B core Ab) igm, serum 2023 024 [facility] (Lab), [address] [place], [address], 4 22:59:24 HBsAg (hepatitis B surface Ag), serum 2023 024 [facility] (Lab), [address], [place], [address], 4 22:59:22 hepatitis C virus Ab, serum 2023 024 [facility] (Lab), [address], [place], [address], 4 22:59:23 unlisted lab - HIV 1/2 antigen/ant ibody, reflex confirmatio n 2023 024 [facility] (Lab), [address], [place], [address], 4 22:59:22 RPR (rapid plasma reagin), serum 2023 024 [facility] (Lab), [address], [place], [address], 4 22:59:24 TSH, serum or plasma 2022 023 [facility] (Lab), [address], [place], [address], 3 03:55:42 Referral None recorded. Procedures None recorded. Surgeries None recorded. Imaging US, obstetric, follow-up 2022 023 [facility], [address], [address], [place], [address], 3 11:26:50 Medication Orders Valtrex 1 gram tablet 2023 024 [email or web address] [facility], [address], [place], [place], [id number], 4 15:32:07 Microgestin FE 1/20 (28) 1 mg-20 mcg (21)/75 mg (7) tablet 2022 023 [email or web address], [address], [place], [place], [id number], 15:03:31 Patient TargetsNo targets recorded. Patient InstructionsNo instructions recorded. Reason for Referral None Reported. Results Created Date Observation Date Name Description Value Unit Range Abnormal Flag Note LastModifiedBy Organization Detail LastModifiedTime 03/12/2003/12/2023 TSH, REFLE X FREE T4 TSH 3.41 uIU/m L 0.30-5 .33 Not Available [facility] (Lab) [address] [place], [address], 03/13/2023 03:13:12 04/16/20 23 04/16/2023 TSH, REFLE X FREE T4 TSH 1.37 uIU/m L 0.30-5 .33 Not Available [facility] (Lab) [address] [place], [address], 04/17/2023 09:29:08 05/27/20 23 05/27/2023 TSH, REFLE X FREE T4 TSH 1.51 uIU/m L 0.30-5 .33 Not Available [facility] (Lab) [address] [place], [address], 05/28/2023 03:55:42 11/04/19 24 11/04/2023 HIV 1/2 ANTIG EN/AN TIBOD Y, REFLE X CONFI RMATI ON HIV antigen/anti body Nonrea ctive nonrea ctive HIV-1 antig en and HIV-1 /HIV- 2 antib odies were not detec reese. No labor atory evide nce of HIV infec tion. Not Available [facility] (Lab) [address] [place], [address], 11/05/2023 22:59:22 11/04/19 24 11/04/2023 HEPAT ITIS B SURFA CE ANTIG EN hepatitis B surface antigen Non-re active non-re active This assay was perfo rmed using [employer] ratio n reage nts and test kits. Value s obtai nissa with other assay metho ds or kits canno t be used inter moran eably . Not Available [facility] (Lab) [address] [facility], [place], [address], 11/05/2023 22:59:22 11/04/19 24 11/04/2023 HEPAT ITIS C ANTIB WILLIAMS SCREE N, REFLE X TO CONFI RMATI ON hepatitis C antibody Non-re active non-re active Antib odies to HCV Not Detec reese, does not exclu de the possi bilit y of expos ure to HCV. Not Available [facility] (Lab) [address] [facility], [place], [address], 11/05/2023 22:59:22 11/04/19 24 11/04/2023 HERPE S SMPLE X VIRUS TYPE 1 SPECI FIC AB, IGG herpes simplex virus 1 IgG Positi ve negati ve abnormal Not Available [facility] (Lab) [address], [place], [address], 11/05/2023 22:59:23 11/04/19 24 11/04/2023 HERPE S SMPLE X VIRUS TYPE 1 SPECI FIC AB, IGG herpes simplex virus 1 IgG, quant 8.0 ai 0.0-0. 8 high Not Available [facility] (Lab) [address], [place], [address], 11/05/2023 22:59:23 11/04/19 24 11/04/2023 HERPE S SIMPL EX VIRUS TYPE 2 SPECI FIC AB, IGG herpes simplex virus 2 IgG Negati ve negati ve Not Available [facility] (Lab) [address], [place], [address], 11/05/2023 22:59:23 11/04/19 24 11/04/2023 HERPE S SIMPL EX VIRUS TYPE 2 SPECI FIC AB, IGG herpes simples virus 2 IgG, quant <0.2 ai 0.0-0. 8 Not Available [facility] (Lab) [address], [place], [address], 11/05/2023 22:59:23 11/04/19 24 11/04/2023 RPR SCREE N, REFLE X TITER /CONF IRMAT ION RPR screen Nonrea ctive nonrea ctive Not Available [facility] (Lab) [address], [place], [address], 11/05/2023 22:59:24 11/04/19 24 11/04/2023 HEPAT ITIS B CORE, IGM hepatitis B core IgM antibody Negati ve negati ve Not Available [facility] (Lab) [address], [place], [address], 11/05/2023 22:59:24 11/04/19 24 11/04/2023 CT/GC AND TRICH OMONA S VAGIN YOSELIN (RRNA ), URINE chlamydia trachomatis, PCR Negati ve negati ve Not Available [facility] (Lab) [address] [facility], [place], [address], 11/07/2023 13:53:00 11/04/19 24 11/04/2023 CT/GC AND TRICH OMONA S VAGIN YOSELIN (RRNA ), URINE neisseria gonorrhoeae, PCR Negati ve negati ve Not Available [facility] (Lab) [address] [facility], [place], [address], 11/07/2023 13:53:00 11/04/19 24 11/04/2023 CT/GC AND TRICH OMONA S VAGIN YOSELIN (RRNA ), URINE trichomonas vaginalis ribosomal RNA (rrna) Negati ve negati ve Not Available [facility] (Lab) [address], [place], [address], 11/07/2023 13:53:00 11/04/19 24 11/04/2023 CULTU RE: HERPE S SIMPL EX VIRUS (HSV) , REFLE X TYPIN G source LESION SCRAPI NGS Not Available [facility] (Lab) [address], [place], [address], 11/07/2023 13:53:00 11/04/19 24 11/04/2023 CULTU RE: HERPE S SIMPL EX VIRUS (HSV) , REFLE X TYPIN G hsv culture, body fluid ISOLAT ED abnormal Not Available [facility] (Lab) [address], [place], [address], 11/07/2023 13:53:00 11/04/19 24 11/04/2023 CULTU RE: HERPE S SIMPL EX VIRUS (HSV) , REFLE X TYPIN G hsv 2 NOT ISOLAT ED Not Available [facility] (Lab) [address], [place], [address], 11/07/2023 13:53:00 11/04/19 24 11/04/2023 CULTU RE: HERPE S SIMPL EX VIRUS (HSV) , REFLE X TYPIN G hsv 1 ISOLAT ED abnormal SWAB SITE: VULVA Perfo rming Organ izati on Infor matharlan n: Site ID: CB Name: [facility] juancho Weems Addre ss: [address] [place] [address] Dire tor: Antho ny V Adarsh s Not Available [facility] (Lab) [address], [place], [address], 11/07/2023 13:53:00 04/09/20 23 04/09/2023 US, obste tric, follo w-up No observ ation record ed. [facility] [address], [place], [address], 04/09/2023 13:05:17 04/09/20 23 04/09/2023 US, obste tric, follo w-up No observ ation record ed. SARAH Drake [address], [place], [address], 04/10/2023 10:47:37 Result Notes None recorded. Problems Name Problem SNOMED Code Status Onset Date Resolution Date Notes Provider Name and Address Organization Details Recorded Time Hypothyr oidism 45403564 Active increase d to 175mcg on 03/17 - rpt 4 wks? Lloyd Perez [facility] 3 13:22:11 Hypothyr oidism 13449791 Completed increase d to 175mcg on 03/17 - rpt 4 wks? [facility] 13:22:11 RhD negative 243628914 Completed rhogam at 28 wks Lloyd Perez [facility] 3 13:22:11 Carrier of cystic fibrosis gene mutation 246472986 Completed Pt/FOB decline testing at this time Lloyd Perez [facility] 3 13:22:11 Carrier of cystic fibrosis gene mutation 212303668 Active Pt/FOB decline testing at this time Lloyd Perez [facility] 3 13:22:11 RhD negative 571342340 Active rhogam at 28 wks Lloyd Perez [facility] 3 13:22:11 Disorder of lumbar spine 792222257 Active L4 or L5 slipped/ missing disk- need imaging, anesthes ia consult- 10/11/20 [facility] - records received and sent to L&D Lloyd Perez [facility] 3 13:22:11 Disorder of lumbar spine 888636421 Completed L4 or L5 slipped/ missing disk- need imaging, anesthes ia consult- 10/11/20 Efrem' s - records received and sent to L&D Lloyd Perez [facility] 3 13:22:11 Mixed anxiety and depressi ve disorder 638689340 Active 2021 Lloyd Perez [facility] 3 13:22:11 Hypothyr oidism in pregnanc y 321366688 Active 2021 Yael Rader MD [address], [place], [address], [facility] 2 16:24:37 Antenata l care: history of infertil ity 793585302 Active 2021 Yael Rader MD [address], [place], [address], [facility] 2 16:24:47 Vaccinat ion not done 2807201582 9108 Active 2021 Yael Rader MD [address], [place], [address], [facility] 2 16:25:03 Mixed anxiety and depressi ve disorder 850817265 Completed 2021 Lloyd Perze [facility] 3 13:22:11 Pregnanc y 69983695 Completed 202205/08/2023 Lloyd Perez [facility] 3 13:22:20 Problem Notes None recorded. Procedures Surgical History Date Name Laterality Status Provider Name and Address Organization Details Recorded Time 09/23/2022 Date of Last Pap Smear completed Nathalie [facility] 11/04/2023 14:48:06 Imaging Results None recorded. Procedure Notes None recorded. Medical Equipment None Reported. Allergies Allergen ID Allergen Name Allergen Category Reaction Reaction Severity Criticality Documentation Date Start Date Code Code System Note Provider Name and Address Organization Details Recorded Time 42229 Substance with sulfonami de structure and antibacte rial mechanism of action (substanc e) medicatio n Not available Not available Not available 11/04/2023 17813 8003 SNOMED Nathalie Peterson [facility] 4 15:03:17 Medications Name Sig Start Date Stop Date Status Note LastModified by Organization Details LastModified Time levothyroxi ne 175 mcg tablet TAKE 1 TABLET BY MOUTH EVERY DAY active Not Available Not Available No t Available azithromyci n 250 mg tablet TAKE DIRECTED ON BOX active Not Available Not Available No t Available ibuprofen 800 mg tablet TAKE 1 TABLET BY MOUTH EVERY 6 HOURS NEEDED 11/04 completed Not Available Not Available Not Available tizanidine 4 mg tablet TAKE 1 TABLET BY MOUTH EVERY 8 HOURS 03/25 completed Not Available Not Available Not Available fluconazole 150 mg tablet active Not Available Not Available Not Available valacyclovi r 1 gram tablet TAKE 1 TABLET BY MOUTH EVERY 12 HOURS FOR 7 DAYS active Not Available Not Available No t Available fluconazole 200 mg tablet 11/04 completed Not Available Not Available Not Available meloxicam 15 mg tablet TAKE 1 TABLET BY MOUTH EVERY DAY 03/25 completed Not Available Not Available Not Available ondansetron HCl 4 mg tablet TAKE 1-2 TABLETS BY MOUTH EVERY 8 HOURS NEEDED FOR NAUSEA - 1ST LINE active Not Available Not Available No t Available Anucort-HC 25 mg suppository 09/23 completed Not Available Not Available Not Available ciprofloxac in 500 mg tablet TAKE 1 TABLET BY MOUTH TWICE DAILY 11/04 completed Not Available Not Available Not Available tramadol 50 mg tablet TAKE 1 TABLET BY MOUTH EVERY 6 HOURS NEEDED FOR PAIN active Not Available Not Available No t Available ondansetron 8 mg disintegrat ing tablet 03/25 completed Not Available Not Available Not Available amoxicillin 875 mg tablet TAKE 1 TABLET BY MOUTH EVERY 12 HOURS 03/25 completed Not Available Not Available Not Available levothyroxi ne 50 mcg tablet TAKE 1 TABLET BY MOUTH DAILY 09/23 completed Not Available Not Available Not Available levothyroxi ne 125 mcg tablet TAKE 1 TABLET BY MOUTH EVERY DAY 12/17 completed Not Available Not Available Not Available levothyroxi ne 150 mcg tablet TAKE 1 TABLET BY MOUTH EVERY DAY 03/17 completed Not Available Not Available Not Available gabapentin 300 mg capsule TAKE 1 CAPSULE BY MOUTH TWICE DAILY 03/25 completed Not Available Not Available Not Available methylpredn isolone 4 mg tablets in a dose pack TAKE DIRECTED 11/04 completed Not Available Not Available Not Available ondansetron 4 mg disintegrat ing tablet DISSOLVE 1 TABLET ON THE TONGUE EVERY 6 TO 8 HOURS NEEDED 11/04 completed Not Available Not Available Not Available fluoxetine 20 mg capsule Take 1 capsule every day by oral route. 11/04 completed Not Available Not Available Not Available metoclopram brooke 10 mg tablet Take 1 tablet every 6 hours by oral route as needed. 03/17 completed Not Available Not Available Not Available amoxicillin 875 mg-potassiu m clavulanate 125 mg tablet TAKE 1 TABLET BY MOUTH TWICE DAILY FOR 10 DAYS FOR PNEUMONIA active Not Available Not Available No t Available oxycodone 5 mg tablet TAKE 1 TABLET BY MOUTH EVERY 4 HOURS NEEDED FOR SEVERE PAIN 11/04 completed Not Available Not Available Not Available nitrofurant oin monohydrate /macrocryst als 100 mg capsule TAKE 1 CAPSULE BY MOUTH TWICE DAILY FOR 5 DAYS 11/04 completed Not Available Not Available Not Available levothyroxi ne 125 mcg capsule TAKE 1 CAPSULE BY MOUTH EVERY DAY 09/23 completed Not Available Not Available Not Available Suprep Bowel Prep Kit 17.5 gram-3.13 gram-1.6 gram oral solution 03/25 completed Not Available Not Available Not Available Blisovi Fe 10/25 (28) 1 mg-20 mcg (21)/75 mg (7) tablet TAKE 1 TABLET BY MOUTH EVERY DAY 11/04 completed Not Available Not Available Not Available Vitals Date Recorded Body height Body mass index (BMI) Body weight Systolic And Diastolic Provider Name and Address Organization Details Last Updated DateTime 11/04/2023 157.48 cm 29.8 kg/m2 68581.56 g 101/67 mm[Hg] Nathalie Peterson [facility] 11/04/2023 15:03:09 Date Recorded Body height Body mass index (BMI) Body weight Systolic And Diastolic Provider Name and Address Organization Details Last Updated DateTime 04/09/2023 157.48 cm 36.2 kg/m2 11186.289 26 g 109/70 mm[Hg] Rosmery Louis [facility] 04/09/2023 12:18:32 Date Recorded Body height Body mass index (BMI) Body weight Systolic And Diastolic Provider Name and Address Organization Details Last Updated DateTime 04/16/2023 157.48 cm 36.2 kg/m2 13842.289 26 g 107/70 mm[Hg] [facility] 04/16/2023 16:24:33 Date Recorded Body height Body mass index (BMI) Body weight Systolic And Diastolic Provider Name and Address Organization Details Last Updated DateTime 04/23/2023 157.48 cm 36.4 kg/m2 97201.881 63 g 114/76 mm[Hg] [facility] 04/23/2023 16:24:35 Date Recorded Body height Body mass index (BMI) Body weight Systolic And Diastolic Provider Name and Address Organization Details Last Updated DateTime 05/27/2023 157.48 cm 31.6 kg/m2 21088.48 g 119/71 mm[Hg] [facility] 05/27/2023 12:25:13 Social History Question Answer Notes LastModified by [employer] Details LastModified Time Tobacco Smoking Status Never Smoker [facility] 03/25/2022 09:22:51 If You Are , What Was Your Level Of Alcohol Consumption Prior To ? None Information not available 03/25/2022 Has Tobacco Cessation Counseling Been Provided? No Information not available 03/25/2022 Sex: Female Functional Status Question Answer Note LastModified by [employer] Details LastModified Time Do you use any illicit or recreational drugs? No Information not available 03/25/2022 Do you or have you ever used any other forms of tobacco or nicotine? No Information not available 03/25/2022 What is your level of alcohol consumption? Occasional Information not available 03/25/2022 Mental Status None recorded. Family History Relationship Description Onset Age of this Age Resolved Age Notes LastModified by Organization Details LastModified Time Paternal Grandmother Carcinoma in situ of ovary [email or web address] Not available 2021 10:03:24 Maternal Grandmother Carcinoma in situ of uterus smcaley Not available 2021 10:03:44 Medical History Condition Response Allergies (Food, seasonal, environmental ) N Other N Breast Cancer N Drug/Latex Allergies/Reactions N Blood Transfusion N Dermatologic Disorders N Lung Disease N Defects or Inherited Disease N Breast Problem N Gestational Diabetes N Hematologic disorders N Anesthesia Complications N History of STI N Deep Vein Thrombosis N Polycystic ovary syndrome Y Anxiety Disorder Y Autoimmune disease N Arthritis N Infertility N Polyps N Acid Reflux (GERD) N History of abnormal pap N Cancer N Stroke N Varicosities N Neurologic/Epilepsy N Endometriosis N High Cholesterol N Headaches N Fibromyalgia N Kidney Disease N Heart Problems N Kidney or Bladder Problems N Thyroid Problems Y GI Problems N Eating Disorder N Anemia N Art (IVF or FET) N Psychiatric Illness N Ovarian Cancer N Diabetes N Pulmonary (TB, Asthma) N Hepatitis/Liver Disease N No Past Medical History N Eczema N Urinary Tract Infection N Abuse/Domestic Violence N Asthma N Trauma/Violence N Depression/ depression Y Heart Disease N Pre-Eclampsia N Hypertension N Osteoporosis N Thrombophilias N Gynecological History Statement/Question Response Date of LMP 10/26/2023 Age of first menstrual cycle 15 Date of Last Pap Smear 09/23/2022 Current Control Method None Desired Control Method None LMP Definite Obstetrics History GPAL:G 1 P 1 0 0 1 Type Value Full Term 1 Living 1 Total 1 Past Encounters Encounter ID Performer Location Encounter Start Date Encounter Closed Date Diagnosis/Indication Diagnosis SNOMED-CT Code Diagnosis ICD10 Code Diagnosis IMO Codes Diagnosis Note [id number] Yael Rader MD [facility] [address],[place] [address] 03/25/2022 09:39:33 03/25/2022 11:22:02 Missed period 41149297 N92.5 Polycystic ovary syndrome 539729164 E28.2 Trying to conceive 56373 9001 Z31.9 Hypothyroidism 04263564 E03.9 Body mass index 30+ - obesity 985849111 Z68.33 Vaccination not done 129 7077574 9108 Z28.9 COVID Mixed anxi ety and depressive disorder 812915697 F41.8 [id number] Yael Rader MD [facility] [address],[place] [address] 09/23/2022 14:40:38 09/23/2022 15:29:29 [id number] Yael Rader MD [facility] [address] [place] [address] 09/23/2022 15:26:20 10/05/2022 18:42:22 test positive 353748488 Z32.01 care: history of infertility 864607620 O09.01 Hypothyroi dism in 297483936 E03.9 Mixed anxi ety and depressive disorder 890255167 F41.8 Vaccination not done 730 4283055 9108 Z28.9 COVID Nausea and vomiting 1693 1999 R11.2 Venereal d isease screening 797224829 Z11.3 [id number] Yael Rader MD [facility] [address],[place] [address] 10/22/2022 11:19:05 10/22/2022 11:57:05 screening 824358831 Z36.82 [id number] Yael Rader MD [facility] [address],[place] [address] 10/22/2022 11:20:00 10/23/2022 11:13:40 Routine care 759345800 Z34.91 Hypothyroi dism in 344515056 E03.9 Mixed anxi ety and depressive disorder 114004989 F41.8 Nausea and vomiting 1693 1999 R11.2 [id number] Yael Rader MD [facility] [address],[place] [address] 11/19/2022 12:05:42 11/19/2022 13:33:18 care: history of infertility 260966279 O09.01 Hypothyroi dism in 479653582 E03.9 Hyperemesi s gravidarum 78699511 O21.0 [id number] Yael Rader MD [facility] [address],[place] [address] 12/17/2022 10:18:27 12/17/2022 12:11:51 screening for malformation 003751547 Z36.3 [id number] Yael Rader MD [facility] [address],[place] [address] 12/17/2022 10:18:46 12/17/2022 12:28:00 Hypothyroidism in 889836557 E03.9 care: history of infertility 517181136 O09.01 [id number] Yael Rader MD [facility] [address],[place] [address] 01/15/2023 11:26:34 01/15/2023 14:18:55 [id number] Yael Rader MD [facility] [address],[place] [address] 02/12/2023 10:18:26 02/17/2023 14:14:44 Routine care 891471270 Z34.91 [id number] Yael Rader MD [facility] [address],[place] [address] 02/26/2023 11:40:34 02/26/2023 12:18:14 Routine care 107916725 Z34.91 Hypothyroi dism in 244682081 E03.9 [id number] Yael Rader MD [facility] [address],[place] [address] 03/12/2023 10:20:56 03/12/2023 11:13:53 care: history of infertility 580376845 O09.01 Disorder o f lumbar spine 852928578 M53.9 Hypothyroidism 36794249 E03.9 [id number] Yael Rader MD [facility] [address],[place] [address] 03/26/2023 16:12:42 03/31/2023 15:55:51 Routine care 658307423 Z34.91 Hypothyroidism 27404861 E03.9 Disorder o f lumbar spine 118698401 M53.9 [id number] aYel Rader MD [facility] [address],[place] [address] 04/09/2023 11:17:13 04/09/2023 12:06:36 Uterine size for dates discrepancy 628039788 O26.849 [id number] Yael Rader MD [facility] [address],[place] [address] 04/09/2023 11:19:25 04/09/2023 13:52:59 Hypothyroidism 92857783 E03.9 care: history of infertility 954121705 O09.01 Disorder o f lumbar spine 688729829 M53.9 [id number] Yael Rader MD [facility] [address],[place] [address] 04/16/2023 16:15:07 04/16/2023 16:54:50 care: history of infertility 093705521 O09.01 Disorder o f lumbar spine 188811011 M53.9 Hypothyroidism 97765918 E03.9 [id number] Yael Rader MD [place] [address],[place] [address] 04/23/2023 16:16:03 04/30/2023 13:14:18 Routine care 383555247 Z34.91 [id number] Yael Rader MD [place] [address],[place] [address] 05/27/2023 12:08:50 05/27/2023 14:37:18 Hypothyroidism 24584542 E03.9 care 77077173 8 Z39.2 Initial pr escription of oral contraception 817304576 Z30.011 [id number] ERIKA Boothe [facility] [address],[place] [address] 11/04/2023 14:47:09 11/04/2023 15:38:28 Venereal disease screening 465152184 Z11.3 Sexually t ransmitted infectious disease 9279945 A64 Primary he rpes simplex infection of genitalia 594084645 A60.00 suspect primary HSV outbreakHS V PCR sentgc/ct/ trich testing sentserum STI panel orderedrx valtrex, r/b/a revieweddi scussed HSV, no IC with symptoms/o utbreaks. Notify the office with any future outbreak for valtrex course. Safe sexual practices/ condom use encouraged .recommend ed partner be seen for his symptoms (PCP/healt h dept/or urgent care) Time spent in visit is a total of 30 mins with at least 50% of visit consisting of counseling and review of plan of care. Health Concerns Section Related Observation LastModified by Organization Detai ls LastModified Time None Recorded Concern Status LastModified by Organization Details LastModified Time None Recorded Advance Directives Directive None Recorded Payers Insurance Date Sequence Insurance Name Policy Number Policy Steven Covered Member ID Steven Member ID Guarantor Name 11/06/2023 1 [place] [id number] Adriana E Pompa [id number] Maara Pompa 01/15/2023 2 [place] [id number] Adriana Pompa [id number] Amara Pompa 11/06/2023 2 [place] [facility] Amara Pompa [id number] Amara Pompa Notes Date Note Type Note Provider Name and Address Organization Details Recorded Time 04/09/2023 text/html Generic HPI TemplateReported by Patient Yael Rader MD [address], [place], [address], [facility] 04/09/2023 13:39:41 04/16/2023 text/html Generic HPI TemplateReported by Patient Yael Rader MD [address], [place], [address], [facility] 04/16/2023 16:53:49 04/23/2023 text/html Generic HPI TemplateReported by Patient Yael Rader MD [address], [place], [address], [facility] 04/29/2023 21:25:51 05/27/2023 text/html VisitReported by Patient Patient is a 23yo presenting for a 4 week visit. She had a on 04/29/23 at term weeks GA. Baby Radha was 6-14, doing well, but going tomorrow for sweat testing for CF. Amara is a carrier, they chose not to test her . The screen was low abnormal. Doing well overall. bottlefeeding. Normal lochia. Pain- none. Bowel and bladder function normal. [place] score 8 Periodnot yet Annual due : now, last 01/2022 Concerns: none Yael Rader MD [address], [place], [address], [facility] 05/27/2023 14:12:14 11/04/2023 text/html 23yo [id number] for evaluation of vulvar irritation/lesionssym ptoms started last week. Used OTC monistat which made the burning worse. Feels like cuts throughout the vulva. Went to urgent care on , treated for a yeast infection with fluconazole but they did not do an exam.she states her partner also has bumps/irritation on his genitalsneg discharge/odorsneg n/v/fneg pelvic pain ERIKA Boothe [address], [place], [address], [facility] 11/04/2023 15:36:37 OBGyn Episode Ob Episode Information Episode Created Date Number of Fetuses Patient Bloodtype Patient rh Status Prepregnancy Weight lbs Domestic Partner Domestic Partner Phone Father Name Voip Technician Status 10/22/19 23 1 B Negative 176 CLOSED Fetus Data First Name Last Name Admitted to NICU Weight (g) Sex Living Outcome Pediatric Complications Fetus ID Race Codes Race Delivery Type [phone] 5 F true Full Term [id number] Vaginal Delivery Problems Problem Notes declines COVID vaccinesgermán hammer anesthesia consult with preregistration re spinal issues- MRI records received. Problem Name Start Date End Date Resolution Snomed Code Not e Carrier of cystic fibrosis gene mutation [id number] Pt/FO B decline testing at this time RhD negative [id number] rhogam at 28 wks Hypothyroidism [id number] incre ased to 175mcg on 03/17 - rpt 4 wks? Mixed anxiety and depressive disorder 09/23/2022 [id number] Disorder of lumbar spine [id number] L4 or L5 slipped/missing disk- need imaging, anesthesia consult- 10/11/20 [facility] - records received and sent to L&D Laci Calculation Initial Laci Date Initial Exam Date Initial Exam Provider Initial Ultrasound Date Last Menstrual Period Date Ultra Sound Weeks Gestation 05/05/2023 10/22/2022 09/23/2022 8 Eighteen To Twenty Week Laci Update Ultra Sound Date Fundal Height At Umbil Quickening Date Ultra Sound Latest Weeks Gestation Final Laci Confirmed By Final Laci Confirmed Date Final Laci Date Ultra Sound Latest Days Gestation 0 [email or web address] 10/22/2022 05/05/20 23 0 Pre- Flowsheet Flowsheet Date 10/22/2022 Kay Score Blood Edema Fundus Height Fundus Units Glucose Ketones Leukocytes Nitrite Labor Signs Protein Cervic Dilation Cervic Effacement Cervic Station neg none none trace Type Weight in lbs Pre/Post Dialysis Refused Weight 178.908628532722 BP Diastolic BP Location Tested BP Systolic BP Type 73 118 Fetus Heart Rate Present A 170 Fetus Movement A No Comments Amara is a 22yo G1 at 12.1 fo r care. Her history is significant for anxiety and depression, on prozac, and hypothyroidism, now back on levothyroxine for a month. Will do TSH with PNL today. FLu shot done, declines COVID vaccine US today NT wnl, JUDI resolved. NIPT today. Still a lot of nausea and vomiting, reglan didn't help much, requesting zofran, sent. Routine care. Flowsheet Date 11/19/2022 Kay Score Blood Edema Fundus Height Fundus Units Glucose Ketones Leukocytes Nitrite Labor Signs Protein Cervic Dilation Cervic Effacement Cervic Station neg none none trace Type Weight in lbs Pre/Post Dialysis Refused Weight 184.046665269527 BP Diastolic BP Location Tested BP Systolic BP Type 76 119 Fetus Heart Rate Present A 140 Fetus Movement A Yes Comments Doing ok. Still a lot of N/V , sofran not really helping much. Bad GERD- will start pepcid. Denies UTI sx. TSH order- will do at [facility]. Is a CF carrier, they decline testing of FOB after discussion. Anatomy US next visit. Flowsheet Date 12/17/2022 Kay Score Blood Edema Fundus Height Fundus Units Glucose Ketones Leukocytes Nitrite Labor Signs Protein Cervic Dilation Cervic Effacement Cervic Station Type Weight in lbs Pre/Post Dialysis Refused BP Diastolic BP Location Tested BP Systolic BP Type Fetus Heart Rate Present Fetus Movement Comments Flowsheet Date 12/17/2022 Kay Score Blood Edema Fundus Height Fundus Units Glucose Ketones Leukocytes Nitrite Labor Signs Protein Cervic Dilation Cervic Effacement Cervic Station neg none none trace Type Weight in lbs Pre/Post Dialysis Refused Weight 178.362944454125 BP Diastolic BP Location Tested BP Systolic BP Type 63 94 Fetus Heart Rate Present A 160 Fetus Movement A Yes Comments Feeling better, N/V resolved but appetite still decreased. Worried because lost weight from last visit and has not gained weight overall yet. Is eating three meals and snacks every day. Will monitor. TSH was 1.55. Anatomy US today complete and wnl. Flowsheet Date 01/15/2023 Kay Score Blood Edema Fundus Height Fundus Units Glucose Ketones Leukocytes Nitrite Labor Signs Protein Cervic Dilation Cervic Effacement Cervic Station neg trace 25 none trace Type Weight in lbs Pre/Post Dialysis Refused Weight 189.271691334468 BP Diastolic BP Location Tested BP Systolic BP Type 73 112 Fetus Heart Rate Present A 145 Fetus Movement A Yes Comments Weight gain now, will try to slow down. RH neg. Orders given for Rhogam and GCT at at 28w. Need last imaging of spine for anesthesia consult. Repeat TSH around 32w. Flowsheet Date 02/12/2023 Kay Score Blood Edema Fundus Height Fundus Units Glucose Ketones Leukocytes Nitrite Labor Signs Protein Cervic Dilation Cervic Effacement Cervic Station neg trace 28 none trace Type Weight in lbs Pre/Post Dialysis Refused Weight 197.948197259032 BP Diastolic BP Location Tested BP Systolic BP Type 76 122 Fetus Heart Rate Present A 130 Fetus Movement A Yes Comments Doing fine. No cocnerns. GCT and Rhogam at today. MRI of spine received for anesthesia consult. TSH 32w. Flowsheet Date 02/26/2023 Kay Score Blood Edema Fundus Height Fundus Units Glucose Ketones Leukocytes Nitrite Labor Signs Protein Cervic Dilation Cervic Effacement Cervic Station neg none 32 none trace Type Weight in lbs Pre/Post Dialysis Refused Weight 196.397391538027 BP Diastolic BP Location Tested BP Systolic BP Type 76 112 Fetus Heart Rate Present A 130 Fetus Movement A Yes Comments Doing fine, just not sleepin g well. Nausea coming back, bad GERD. will try pepcid. TSH next visit. GCT wnl. Rhogam done. Discussed and encouraged Tdap. Will do anesthesia consult with prereg, case sent to ob. Flowsheet Date 03/12/2023 Kay Score Blood Edema Fundus Height Fundus Units Glucose Ketones Leukocytes Nitrite Labor Signs Protein Cervic Dilation Cervic Effacement Cervic Station neg trace 31 none trace Type Weight in lbs Pre/Post Dialysis Refused Weight 199.021830359044 BP Diastolic BP Location Tested BP Systolic BP Type 73 120 Fetus Heart Rate Present A 135 Fetus Movement A Yes Comments Doing well. NO concerns. TSH today. Pepcid helping GERD. Will call for preregistration with anesthesia consult. Flowsheet Date 03/26/2023 Kay Score Blood Edema Fundus Height Fundus Units Glucose Ketones Leukocytes Nitrite Labor Signs Protein Cervic Dilation Cervic Effacement Cervic Station neg trace 32 none trace Type Weight in lbs Pre/Post Dialysis Refused Weight 198.565135706907 BP Diastolic BP Location Tested BP Systolic BP Type 64 99 Fetus Heart Rate Present A 140 Fetus Movement A Yes Comments Doing fine. Has preregistrat ion scheduled with anesthesia consult on 04/10. Will repeat TSH 36-37w. GBS next visit. Flowsheet Date 04/09/2023 Kay Score Blood Edema Fundus Height Fundus Units Glucose Ketones Leukocytes Nitrite Labor Signs Protein Cervic Dilation Cervic Effacement Cervic Station Type Weight in lbs Pre/Post Dialysis Refused BP Diastolic BP Location Tested BP Systolic BP Type Fetus Heart Rate Present Fetus Movement Comments Flowsheet Date 04/09/2023 Kay Score Blood Edema Fundus Height Fundus Units Glucose Ketones Leukocytes Nitrite Labor Signs Protein Cervic Dilation Cervic Effacement Cervic Station neg none trace 0cm Type Weight in lbs Pre/Post Dialysis Refused Weight 198.014287615583 BP Diastolic BP Location Tested BP Systolic BP Type 70 109 Fetus Heart Rate Present A 145 Fetus Movement A Yes Comments Doing well. US 53%. Anesthes ia consult tomorrow. MRI to L and D already. GBS done and discussed. TSH ordered. Flowsheet Date 04/16/2023 Kay Score Blood Edema Fundus Height Fundus Units Glucose Ketones Leukocytes Nitrite Labor Signs Protein Cervic Dilation Cervic Effacement Cervic Station neg none 37 none trace 1cm 30% -3 Type Weight in lbs Pre/Post Dialysis Refused Weight 198.250984871391 BP Diastolic BP Location Tested BP Systolic BP Type 70 107 Fetus Heart Rate Present A 145 Fetus Movement A Yes Comments Doing fine. A few contractio ns. Anesthesia said epidural fine if they go above or below area of concern. GBS neg. TSH today. Will discuss/plan IOL next week. Flowsheet Date 04/23/2023 Kay Score Blood Edema Fundus Height Fundus Units Glucose Ketones Leukocytes Nitrite Labor Signs Protein Cervic Dilation Cervic Effacement Cervic Station neg trace 38 none trace 1cm 30% -3 Type Weight in lbs Pre/Post Dialysis Refused Weight 199.429185042408 BP Diastolic BP Location Tested BP Systolic BP Type 76 114 Fetus Heart Rate Present A 135 Fetus Movement A Yes Comments Doing fine. IOL Friday. Prec autions given. Menstrual History Last Menstrual Date Menses Monthly On Bcp Conception Prior Menses Frequency Hcg Plus Date Menarche Onset Age Genetic Screening And Infection History Question Response Note Mental Retardation/Autism false Patient's Age Will Be 35 Years Or Older At Estim ated Date of Delivery false Thalassemia (Citizen Of [place], Taj[place], Mediterranean, Or Background): MCV < 80 false Neural Tube Defect (Meningomyelocele, Spina Bifi da, Or Anencephaly) false Congenital Heart Defect false Down Syndrome false Kishore-Sachs (eg, Zoroastrianism, Cajun, Khmer-Indian) f alse Karissa Disease false Sickle Cell Disease Or Trait () false Hemophilia Or Other Blood Disorders false Muscular Dystrophy false Cystic Fibrosis false Jeffry's Chorea false Intellectual Disability/Autism false If Yes, Was Person Tested For Fragile X? false Other Inherited Genetic Or Chromosomal Disorder false Maternal Metabolic Disorder (eg, Type 1 Diabetes , PKU) false Patient Or Baby's Father Had A Child With Defects Not Listed Above false Recurrent Loss, Or A Stillbirth false Medications (including Suppl ements, Vitamins, Herbs, OTC Drugs), Illicit/Recreational Drugs, Alcohol false If Yes, Agent(s) And Strength/Dosage false Any Other Genetic History false Live With Someone With TB Or Exposed To TB false Patient Or Partner Has History Of Genital Herpes false Rash Or Viral Illness Since Last Menstrual Perio d false History Of STD, Gonorrhea, Chlamydia, HPV, Syphi lis false Other Infection History false History of HIV false History of Hepatitis false Prior GBS-infected child false Hemoglobinopathy Or Carrier false Other Structural Defect false Recent Travel History Outside of Country false Delivery Information Delivery Date Delivery Type Labor Anesthesia Weeks Gestation Incision Type Labor Labor Length Hrs Delivered By Post Complications Tubal Sterilization Discharge Date Comments 3 Induce d Regional-Ep idural 39.1 false Yael Rader MD CF carrier, hypothyro idism, Discharge Information Feeding Method Contraceptive Method Maternal HG B and HCT Levels
--- OUTSIDE RECORDS SUMMARY | 2025-08-18 08:14 | XMS_ITS | Clinical Summary ---
Author Organization [facility] Address [address] [place] [address] Phone Care Team Providers Care Dredge Pumper Name Role Phone Becki Randall MD Primary Care Provider [phone] Allergies Active Allergy Reactions Criticality Noted Date [...] on file Legal Sex Female 1:51 PM EGG PACKER Gender Identity Not on file Sexual Orientation Not on file Last Filed Vital Signs Vital Sign Reading Time Taken Comments Blood Pressure 96/81 11/28/2020 10:57 AM EGG PACKER Pulse 89 11/28/2020 10:57 AM EGG PACKER Temperature 37 C (98.6 F) 11/28/2020 10:57 AM EGG PACKER Respiratory Rate - - Oxygen Saturation - - Inhaled Oxygen Concentration - - Weight 88 kg (194 lb) 11/28/2020 10:57 AM EGG PACKER Height 157.5 cm (5' 2) 11/28/2020 10:57 AM EGG PACKER Body Mass Index 35.48 11/28/2020 10:57 AM EGG PACKER Plan of Treatment Health Maintenance Due Date Last Done Comments DTAP/TDAP/TD VACCINES (1 - Tdap) 2017 HEPATITIS B VACCINES (1 of 3 - 19+ 3-dose series) 05/06 CERVICAL CANCER SCREENING 2019 HPV/Cotest (21-29) 2019 PAP SMEAR 2019 INFLUENZA VACCINE (#1) 2025 HPV VACCINES (1 - 3-dose SCDM series) 2025 Care Teams Dredge Pumper Relationship Specialty Start Date End Date Becki Randall MD [address] [place] [address] PCP - General Internal Medicine 10/18/20
--- OUTSIDE RECORDS SUMMARY | 2025-08-18 08:14 | XMS_ITS | Clinical Summary ---
Author Organization [facility] Address [address] [place] [address] Care Team Providers Care Systems Integration Advisor Name Role Phone Unavailable Primary Care Provider Unavailabl e Source Comments [facility],non-owned Affiliates and Associated Physician Practices is amultiple site organization consisting of ambulatory clinics and hospital sitesin [place], [place], [place] and [place]. This disclosure is being madepursuant to the Care Everywhere program and may not contain all information available regarding this patient. Last updated 18.[facility] Allergies Active Allergy Reactions Criticality Noted Date [...] Date Last Done Comments HIV SCREENING 2013 HEPATITIS C SCREENING 05/13/2016 DTAP/TDAP/TD VACCINES (1 - Tdap) 2017 HEPATITIS B VACCINE (1 of 3 - 19+ 3-dose series) 2017 PAP SMEAR 2019 DEPRESSION SCREENING 10/06/2024 HPV VACCINE (1 - 3-dose SCDM series) 2025 COVID-19 VACCINE ( - 2024- season) 2025 INFLUENZA VACCINE (#1) 2025 0, 07/12/2015, 07/20/2014, [...]
--- OUTSIDE RECORDS SUMMARY | 2025-08-18 08:14 | XMS_ITS | Encounter Summary ---
Author Organization [facility] Address [address] [place] [address] Phone Care Team Providers Care Oceanographic Meteorologist Name Role Phone Nupur Noonan MD Primary Care Provider [phone] Becki Randall MD Primary Care Provider + [phone] Brenda Stringer MD Unavailable [phone] Esther Aguilar MD Unavailable [phone] José Dominguez Unavailable Frankie Jewell MD Unavailable [phone] Encounter Details Date Type Department Care Team (Late st Contact Info) Description 08/22/2017 Orders Only [facility] [address] [place] [address] Becki Randall MD [address] [place] [id number] Social History Tobacco Use Types Packs/Day Years Used Date Smoking Tobacco: Never Assessed Comments Unknown Sex and Gender Information Value Date Recorded Sex Assigned at Not on file Legal Sex Female 3:39 PM CUSTOMER SERVICE CASHIER Gender Identity Not on file Sexual Orientation Not on file documented as of this encounter Plan of Treatment Not on file documented as of this encounter Procedures Procedure Name Priority Date/Time Associated Diagnosis Comments SCAN - LABS 08/22/2017 2:39 PM CUSTOMER SERVICE CASHIER documented in this encounter Results * SCAN - LABS (08/22/2017 2:39 PM CUSTOMER SERVICE CASHIER) us Becki Randall MD Final Resu lt documented in this encounter Visit Diagnoses Not on filedocumented in this encounter Care Teams Oceanographic Meteorologist Relationship Specialty Start Date End Date Nupur Noonan MD [address] [place] [address] PCP - General 01/07/17 10/13/17 Becki Randall MD [address] [place] [address] PCP - General Internal Medicine 10/14/17 Brenda Stringer MD [address] [place] [address] Gynecology 10/14/17 Esther Aguilar MD [address] [place] [address] Surgeon Anesthesiology 10/14/17 José Dominguez OD [address] [place] [address] Optometry 10/14/17 Frankie Jewell MD [address] [place] [address] Referring Physician Neurosurgery 10/16/20 documented as of this encounter
--- OUTSIDE RECORDS SUMMARY | 2025-08-18 08:14 | XMS_ITS | Encounter Summary ---
Author Organization [facility] Address [address] [place] [address] Phone Care Team Providers Care Perinatal Nurse Name Role Phone Nupur Noonan MD Primary Care Provider [phone] Becki Randall MD Primary Care Provider + [phone] Brenda Stringer MD Unavailable [phone] Esther Aguilar MD Unavailable [phone] José Dominguez Unavailable Frankie Jewell MD Unavailable [phone] Encounter Details Date Type Department Care Team (Late st Contact Info) Description 08/22/2017 Orders Only [facility] [address] [place] [address] Becki Randall MD [address] [place] [id number] Social History Tobacco Use Types Packs/Day Years Used Date Smoking Tobacco: Never Assessed Comments Unknown Sex and Gender Information Value Date Recorded Sex Assigned at Not on file Legal Sex Female 3:39 PM MEDICAL ADMINISTRATOR Gender Identity Not on file Sexual Orientation Not on file documented as of this encounter Plan of Treatment Not on file documented as of this encounter Procedures Procedure Name Priority Date/Time Associated Diagnosis Comments SCAN - LABS 08/22/2017 2:39 PM MEDICAL ADMINISTRATOR documented in this encounter Results * SCAN - LABS (08/22/2017 2:39 PM MEDICAL ADMINISTRATOR) us Becki Randall MD Final Resu lt documented in this encounter Visit Diagnoses Not on filedocumented in this encounter Care Teams Perinatal Nurse Relationship Specialty Start Date End Date Nupur Noonan MD [address] [place] [address] PCP - General 01/07/17 10/13/17 Becki Randall MD [address] [place] [address] PCP - General Internal Medicine 10/14/17 Brenda Stringer MD [address] [place] [address] Gynecology 10/14/17 Esther Aguilar MD [address] [place] [address] Surgeon Anesthesiology 10/14/17 José Dominguez OD [address] [place] [address] Optometry 10/14/17 Frankie Jewell MD [address] [place] [address] Referring Physician Neurosurgery 10/16/20 documented as of this encounter
--- OUTSIDE RECORDS SUMMARY | 2025-08-18 08:14 | XMS_ITS | Encounter Summary ---
Author Organization [facility] Address [address] [place] [address] Phone Care Team Providers Care Custom Motorcycle Painter Name Role Phone Nupur Noonan MD Primary Care Provider [phone] Becki Randall MD Primary Care Provider + [phone] Brenda Stringer MD Unavailable [phone] Esther Aguilar MD Unavailable [phone] José Dominguez Unavailable Frankie Jewell MD Unavailable [phone] Encounter Details Date Type Department Care Team (Late st Contact Info) Description 08/22/2017 Orders Only [facility] [address] [place] [address] Becki Randall MD [address] [place] [id number] Social History Tobacco Use Types Packs/Day Years Used Date Smoking Tobacco: Never Assessed Comments Unknown Sex and Gender Information Value Date Recorded Sex Assigned at Not on file Legal Sex Female 3:39 PM HOURLY MANAGER Gender Identity Not on file Sexual Orientation Not on file documented as of this encounter Plan of Treatment Not on file documented as of this encounter Procedures Procedure Name Priority Date/Time Associated Diagnosis Comments SCAN - LABS 08/22/2017 2:40 PM HOURLY MANAGER documented in this encounter Results * SCAN - LABS (08/22/2017 2:40 PM HOURLY MANAGER) us Becki Randall MD Final Resu lt documented in this encounter Visit Diagnoses Not on filedocumented in this encounter Care Teams Custom Motorcycle Painter Relationship Specialty Start Date End Date Nupur Noonan MD [address] [place] [address] PCP - General 01/07/17 10/13/17 Becki Randall MD [address] [place] [address] PCP - General Internal Medicine 10/14/17 Brenda Stringer MD [address] [place] [address] Gynecology 10/14/17 Esther Aguilar MD [address] [place] [address] Surgeon Anesthesiology 10/14/17 José Dominguez OD [address] [place] [place] [address] Optometry 10/14/17 Frankie Jewell MD [address] [place] [place] [address] Referring Physician Neurosurgery 10/16/20 documented as of this encounter
--- OUTSIDE RECORDS SUMMARY | 2025-08-18 08:14 | XMS_ITS | Encounter Summary ---
Author Organization [facility] Address [address] [place] [address] Phone Care Team Providers Care Threshing Operator Name Role Phone Becki Randall MD Primary Care Provider [phone] Brenda Stringer MD Unavailable [phone] Esther Aguilar MD Unavailable [phone] José Dominguez OD Unavailable Frankie Jewell MD Unavailable [phone] Encounter Details Date Type Department Care Team (Late st Contact Info) Description 09/27/2020 Orders Only [facility] [address] [place] [address] Scanning, Provider Social History Tobacco Use Types Packs/Day Years Used Date Smoking Tobacco: Never Smokeless Tobacco: Never Alcohol Use Standard Drinks/Week Comments Yes 0 (1 standard drink = 0.6 oz pur e alcohol) occassional Comments No Sex and Gender Information Value Date Recorded Sex Assigned at Not on file Legal Sex Female 3:39 PM WOOD TURNING LATHE OPERATOR Gender Identity Not on file Sexual Orientation [...] on filedocumented in this encounter Care Teams Threshing Operator Relationship Specialty Start Date End Date Becki Randall MD PCP - General Internal Medicine 10/14/17 Brenda Stringer MD [address] [place] [address] Gynecology 10/14/17 Esther Aguilar MD [address] [place] [address] Surgeon Anesthesiology 10/14/17 José Dominguez OD [address] [place] [address] Optometry 10/14/17 Frankie Jewell MD [address] [place] [address] Referring Physician Neurosurgery 10/16/20 documented as of this encounter
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
[2025-08-18 08:17] VITALS: BP 110/69; PULSE 86; RESP 16; TEMP 36.7; O2SAT 100
== END 2025-08-18 08:32 | disposition home or self-care (01) ==
PROVIDERS: Emergency Provider Nurse Practitioner Family
DX: J01.90 Acute sinusitis, unspecified (principal); B96.89 Other specified bacterial agents as the cause of diseases classified elsewhere; E03.9 Hypothyroidism, unspecified
CPT/HCPCS: 99213; G0463

== ENCOUNTER 2025-09-26 08:17 | Emergency (ER) | payer BC, SELFPAY ==
[2025-09-26 08:24] VITALS: BP 128/79; PULSE 77; RESP 20; TEMP 36.7; O2SAT 100
--- NOTE | 2025-09-26 08:29 | ED.FEMALEGU ---
HPI - Female Genitourinary General Chief complaint: Urogenital-Female Stated complaint: Urinary Problem Time Seen by Provider: 09/26/25 08:30 Source: patient Mode of arrival: ambulatory Limitations: no limitations History of Present Illness HPI Narrative: Amara is a 25-year-old female patient presenting to the clinic today with complaints burning with urination and vaginal itching x3 days. She reports the vaginal discharge does have some odor to it. History of chlamydia and bacterial vaginosis in the past. She denies any back pain or abdominal pain. Last menstrual period was 1 month ago. States her periods are normally irregular. Last sexual intercourse was 1 week ago with her male partner. States that she is having burning/itching on the outside with some redness and swelling to her vaginal area. History of PCOS. Related Data Home Medications ?Medication ?Instructions ?Recorded ?Confirmed ?Last Taken ?Type fluoxetine 40 mg capsule 20 mg PO DAILY 05/11/21 05/04/25 04/28/23 History levothyroxine 125 mcg capsule 175 mcg PO DAILY 05/11/21 04/28/23 04/10/23 08:00 History Allergies Allergy/AdvReac Type Severity Reaction Status Date / Time Sulfa (Sulfonamide Allergy Rash Verified 08/18/25 08:18 Antibiotics) Review of Systems Review of Systems: Pertinent positives per HPI. Patient denies any fever, chills, rash, headache, visual changes, dizziness, cough, runny nose, sore throat, shortness of breath, chest pain, palpitations, nausea, vomiting, diarrhea, constipation, abdominal pain. PMFSH Past Medical History Medical History Strep pharyngitis PCOS (polycystic ovarian syndrome) GERD (gastroesophageal reflux disease) Hypothyroidism Surgical History Surgical History No history of previous surgery Family History Family History Grandparent Diabetes mellitus Social History Social History Smoking status: Never smoker Alcohol intake: current Alcohol use details: social Substance use: never Lack of Transportation: No Lack of Food: Never True Current Housing: I Have Housing Concerned About Future Housing: YES Difficulty Paying Gas/Electric Bills: No Difficulty Paying for Meds: No Currently Unemployed: No Education: Don't Know Difficulty w/ Childcare or Family Care: No Living arrangements: with family Gender identity (if verbalized by the patient): Female Spiritual care concerns: No Comments At the time of my signature, I reviewed and agree with the nursing past medical, surgical, social, and family history. There is no relevant family history pertinent to the patient complaint. Exam Narrative: General: Well-developed, well nourished, in no apparent distress Head: Normocephalic, atraumatic. Cardio: Regular rate and rhythm, s1 and s2 normal, no murmur appreciated. Resp: Clear to auscultation bilaterally, no rhonchi, rales, wheezing or rubs. Abdomen: Soft, pliable, bowel sounds present in all quadrants, non-tender to palpation, no CVAT tenderness. : Deferred-patient self swab. Course Course Level of Care: Express Care Visit Vital Signs Vital signs: Vital Signs Temperature 36.7 C 09/26/25 08:24 Pulse Rate 77 09/26/25 08:24 Respiratory Rate 20 09/26/25 08:24 Blood Pressure 128/79 09/26/25 08:24 Pulse Oximetry 100 09/26/25 08:24 Oxygen Delivery Room Air 09/26/25 08:24 Temperature 36.7 C 09/26/25 08:24 Pulse Rate 77 09/26/25 08:24 Respiratory Rate 20 09/26/25 08:24 Blood Pressure 128/79 09/26/25 08:24 Pulse Oximetry 100 09/26/25 08:24 Oxygen Delivery Room Air 09/26/25 08:24 [facility] MDM Narrative Medical decision making narrative: At the time of visit patient is resting comfortably on the exam table. Patient appears to be nontoxic. Complaints burning with urination and vaginal itching x3 days. She reports the vaginal discharge does have some odor to it. History of chlamydia and bacterial vaginosis in the past. She denies any back pain or abdominal pain. Last menstrual period was 1 month ago. States her periods are normally irregular. Last sexual intercourse was 1 week ago with her male partner. States that she is having burning/itching on the outside with some redness and swelling to her vaginal area. On exam patient has soft, pliable, nondistended abdomen, nontender palpation, no CVAT tenderness, patient's exam deferred. Labs ordered for urine dip, urine culture, bedside , GC, chlamydia, Trichomonas, BV, and genital culture. No fevers, chills, body aches. Labs: Urine dip positive for 1+ leukocytes. We will send urine for culture. Bedside test was negative. GC, chlamydia, Trichomonas, BV, and genital culture was sent to the lab-patient self swab Plan: I suspect patient has vaginal itching with vaginal discharge. We will send urine for culture and if this comes back positive we will treat for infection at that time. Patient reports that more for pain is to the outside of via vaginal area as she is urinating. Denies any back pain or abdominal pain. Will place the patient on Diflucan to treat for yeast infection in hold off on any other treatment until we get results back. Patient agrees to this. Supportive measures were discussed with the patient and they voiced understanding discharge instructions and agrees to treatment plan. Return precautions reviewed Differential Diagnosis Differential Diagnosis: Differential diagnostic considerations for female urogenital issues include urinary tract infection, bacterial vaginosis, cervicitis, ovarian cyst, vaginitis, STI exposure, ovarian torsion, ectopic , cyst of Bartholin?s gland, cystitis, dysmenorrhea. Lab Data Labs: Lab Results 09/26/25 09/26/25 Range/Units 08:32 08:58 POC Urine Color Yellow POC Urine Clarity Cloudy POC Urine pH 6.5 POC Ur Specif [place] 1.025 POC Urine Protein Negative (Negative) POC Ur Glucose (UA) Negative (Negative) POC Urine Ketones Negative (Negative) POC Urine Blood Negative (Negative) POC Urine Nitrite Negative (Negative) POC Urine Bilirubin Negative (Negative) POC Urine Urobilinogen 0.2 POC U Leukocyte Esteras 1+ (Negative) POC Urine HCG, Qual Negative (Negative) Discharge Plan Discharge Clinical Impression: Vaginal discharge, Itching of vagina, Concern about STI in female without diagnosis Patient Disposition: Home Condition: Stable Instructions: Antibiotic Form, Sexually Transmitted Diseases (ED), Safe Sex Practices (ED), Yeast Infection (ED), Vaginal Discharge (ED) Additional Instructions: Urinalysis shows 1+ leukocytes. We will send urine for culture. Bedside test was negative in the clinic today. We will treat you for yeast infection and place you on Diflucan. Will await all other test results to be completed until further treatment is divided. Increase fluids and stay well hydrated Wipe front to back Pee before and after intercourse We have tested you for STIs in the clinic today. Avoid any sexual activity- includes oral, anal, or vaginal intercourse until you get results back and have completed any additional recommended treatment regimens. We will contact you if testing is positive and make sure your treatment was appropriate for the type of STI. . If symptoms worsen after treatment recommend reevaluation with your PCP or STI clinic. Patient Language: Irish Prescriptions: New fluconazole 150 mg tablet 150 mg PO ONCE Qty: 2 0RF Rx Instructions: as a single dose. May repeat in 72 hours if needed. No Action fluoxetine 40 mg capsule 20 mg PO DAILY levothyroxine 125 mcg capsule 175 mcg PO DAILY Follow-up/Referrals: PHYSICIAN NOT ON STAFF,NONSTAFF [Primary Care Provider] Stand Alone Forms: Work/School Release IP Time of Disposition: 09:12 Quality NIHSS Nursing Documentation ED NIHSS nursing documentation: reviewed/agree
--- OUTSIDE RECORDS SUMMARY | 2025-09-26 08:32 | XMS_ITS | Encounter Summary ---
Author Organization [facility] Address [address] [place] [address] Phone Care Team Providers Care Wide Piece Goods Inspector Name Role Phone Nupur Noonan MD Primary Care Provider [phone] Becki Randall MD Primary Care Provider + [phone] Brenda Stringer MD Unavailable [phone] Esther Aguilar MD Unavailable [phone] José Dominguez Unavailable Frankie Jewell MD Unavailable [phone] Encounter Details Date Type Department Care Team (Late st Contact Info) Description 08/22/2017 Orders Only [facility] [address] [place] [address] Becki Randall MD [address] [place] [id number] Social History Tobacco Use Types Packs/Day Years Used Date Smoking Tobacco: Never Assessed Comments Unknown Sex and Gender Information Value Date Recorded Sex Assigned at Not on file Legal 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 Gender Identity Not on file Sexual Orientation Not on file documented as of this encounter Plan of Treatment Not on file documented as of this encounter Procedures Procedure Name Priority Date/Time Associated Diagnosis Comments SCAN - LABS 08/22/2017 2:39 PM HEATER PLANER OPERATOR documented in this encounter Results * SCAN - LABS (08/22/2017 2:39 PM HEATER PLANER OPERATOR) us Becki Randall MD Final Resu lt documented in this encounter Visit Diagnoses Not on filedocumented in this encounter Care Teams Wide Piece Goods Inspector Relationship Specialty Start Date End Date Nupur Noonan MD [address] [place] [address] PCP - General 01/07/17 10/13/17 Becki Randall MD [address] [place] [address] PCP - General Internal Medicine 10/14/17 Brenda Stringer MD [address] [place] [address] Gynecology 10/14/17 Esther Aguilar MD [address] [place] [address] Surgeon Anesthesiology 10/14/17 José Domingeuz OD [address] [place] [address] Optometry 10/14/17 Frankie Jewell MD [address] [place] [address] Referring Physician Neurosurgery 10/16/20 documented as of this encounter
--- OUTSIDE RECORDS SUMMARY | 2025-09-26 08:32 | XMS_ITS | Data Portability ---
Author Organization [facility] Address [address] [place] [address] Care Team Providers Care Commercial Hvac Technician Name Role Phone FILOMENA SILVERMAN Primary Care Provider [phone] Assessment Encounter Date Assessment Date Assessment LastModified by Organization Details LastModified Time 05/27/2023 05/27/2023 Normal exam May resume normal activities contraceptive plan-- OCP FU for WWE 3 mos Not available 05/27/2023 12:49:48 Plan of Treatment Reminders Order Date Submit Date Provider Last Modified By Organization Details Last Modified Time Details Appointments None recorded. Lab hsv-1 igg Ab, serum 2023 024 [facility] (Lab), [address] [place], [address], 4 22:59:23 hsv-2 igg Ab, serum 2023 024 [facility] (Lab), [address] [place], [address], 4 22:59:23 hbcab (hepatitis B core Ab) igm, serum 2023 024 [facility] (Lab), [address] [place], [address], 4 22:59:24 HBsAg (hepatitis B surface Ag), serum 2023 024 [facility] (Lab), [address], [place], [address], 4 22:59:22 hepatitis C virus Ab, serum 2023 024 [facility] (Lab), [address] [facility], [place], [address], 4 22:59:23 unlisted lab - HIV 1/2 antigen/ant ibody, reflex confirmatio n 2023 024 [facility] (Lab), [address] [facility], [place], [address], 4 22:59:22 RPR (rapid plasma reagin), serum 2023 024 [facility] (Lab), [address] [facility], [place], [address], 4 22:59:24 TSH, serum or plasma 2022 023 [facility] (Lab), [address] [facility], [place], [address], 3 03:55:42 Referral None recorded. Procedures None recorded. Surgeries None recorded. Imaging US, obstetric, follow-up 2022 023 [facility], [address], [address], [place], [address], 3 11:26:50 Medication Orders Valtrex 1 gram tablet 2023 024 [email or web address] [id number], [address], [place], [place], [id number], 4 15:32:07 Microgestin FE 1/20 (28) 1 mg-20 mcg (21)/75 mg (7) tablet 2022 023 [email or web address] [id number], [address], [place], [place], [id number], 15:03:31 Patient TargetsNo targets recorded. Patient InstructionsNo instructions recorded. Reason for Referral None Reported. Results Created Date Observation Date Name Description Value Unit Range Abnormal Flag Note LastModifiedBy Organization Detail LastModifiedTime 03/12/2003/12/2023 TSH, REFLE X FREE T4 TSH 3.41 uIU/m L 0.30-5 .33 Not Available [facility] (Lab) [address] [place], [address], 03/13/2023 03:13:12 04/16/20 23 04/16/2023 TSH, REFLE X FREE T4 TSH 1.37 uIU/m L 0.30-5 .33 Not Available [facility] (Lab) [address] [place], [address], 04/17/2023 09:29:08 05/27/20 23 05/27/2023 TSH, REFLE X FREE T4 TSH 1.51 uIU/m L 0.30-5 .33 Not Available [facility] (Lab) [address] [place], [address], 05/28/2023 03:55:42 11/04/19 24 11/04/2023 HIV 1/2 ANTIG EN/AN TIBOD Y, REFLE X CONFI RMATI ON HIV antigen/anti body Nonrea ctive nonrea ctive HIV-1 antig en and HIV-1 /HIV- 2 antib odies were not detec reese. No labor atory evide nce of HIV infec tion. Not Available [facility] (Lab) [address] [place], [address], 11/05/2023 22:59:22 11/04/19 24 11/04/2023 HEPAT ITIS B SURFA CE ANTIG EN hepatitis B surface antigen Non-re active non-re active This assay was perfo rmed using [employer] ratio n reage nts and test kits. Value s obtai nissa with other assay metho ds or kits canno t be used inter moran eably . Not Available [facility] (Lab) [address] [facility], [place], [address], 11/05/2023 22:59:22 11/04/19 24 11/04/2023 HEPAT ITIS C ANTIB WILLIAMS SCREE N, REFLE X TO CONFI RMATI ON hepatitis C antibody Non-re active non-re active Antib odies to HCV Not Detec reese, does not exclu de the possi bilit y of expos ure to HCV. Not Available [facility] (Lab) [address] [facility], [place], [address], 11/05/2023 22:59:22 11/04/19 24 11/04/2023 HERPE S SMPLE X VIRUS TYPE 1 SPECI FIC AB, IGG herpes simplex virus 1 IgG Positi ve negati ve abnormal Not Available [facility] (Lab) [address] [facility], [place], [address], 11/05/2023 22:59:23 11/04/19 24 11/04/2023 HERPE S SMPLE X VIRUS TYPE 1 SPECI FIC AB, IGG herpes simplex virus 1 IgG, quant 8.0 ai 0.0-0. 8 high Not Available [facility] (Lab) [address] [facility], [place], [address], 11/05/2023 22:59:23 11/04/19 24 11/04/2023 HERPE S SIMPL EX VIRUS TYPE 2 SPECI FIC AB, IGG herpes simplex virus 2 IgG Negati ve negati ve Not Available [facility] (Lab) [address] [facility], [place], [address], 11/05/2023 22:59:23 11/04/19 24 11/04/2023 HERPE S SIMPL EX VIRUS TYPE 2 SPECI FIC AB, IGG herpes simples virus 2 IgG, quant <0.2 ai 0.0-0. 8 Not Available [facility] (Lab) [address] [facility], [place], [address], 11/05/2023 22:59:23 11/04/19 24 11/04/2023 RPR SCREE N, REFLE X TITER /CONF IRMAT ION RPR screen Nonrea ctive nonrea ctive Not Available [facility] (Lab) [address] [facility], [place], [address], 11/05/2023 22:59:24 11/04/19 24 11/04/2023 HEPAT ITIS B CORE, IGM hepatitis B core IgM antibody Negati ve negati ve Not Available [facility] (Lab) [address] [facility], [place], [address], 11/05/2023 22:59:24 11/04/19 24 11/04/2023 CT/GC AND TRICH OMONA S VAGIN YOSELIN (RRNA ), URINE chlamydia trachomatis, PCR Negati ve negati ve Not Available [facility] (Lab) [address] [facility], [place], [address], 11/07/2023 13:53:00 11/04/19 24 11/04/2023 CT/GC AND TRICH OMONA S VAGIN YOSELIN (RRNA ), URINE neisseria gonorrhoeae, PCR Negati ve negati ve Not Available [facility] (Lab) [address] [facility], [place], [address], 11/07/2023 13:53:00 11/04/19 24 11/04/2023 CT/GC AND TRICH OMONA S VAGIN YOSELIN (RRNA ), URINE trichomonas vaginalis ribosomal RNA (rrna) Negati ve negati ve Not Available [facility] (Lab) [address] [facility], [place], [address], 11/07/2023 13:53:00 11/04/19 24 11/04/2023 CULTU RE: HERPE S SIMPL EX VIRUS (HSV) , REFLE X TYPIN G source LESION SCRAPI NGS Not Available [facility] (Lab) [address] [facility], [place], [address], 11/07/2023 13:53:00 11/04/19 24 11/04/2023 CULTU RE: HERPE S SIMPL EX VIRUS (HSV) , REFLE X TYPIN G hsv culture, body fluid ISOLAT ED abnormal Not Available [facility] (Lab) [address] [facility], [place], [address], 11/07/2023 13:53:00 11/04/19 24 11/04/2023 CULTU RE: HERPE S SIMPL EX VIRUS (HSV) , REFLE X TYPIN G hsv 2 NOT ISOLAT ED Not Available [facility] (Lab) [address] [facility], [place], [address], 11/07/2023 13:53:00 11/04/19 24 11/04/2023 CULTU RE: HERPE S SIMPL EX VIRUS (HSV) , REFLE X TYPIN G hsv 1 ISOLAT ED abnormal SWAB SITE: VULVA Perfo rming Organ izati on Infor matharlan n: Site ID: CB Name: [facility] juancho Weems Addre ss: [address] [place] [address] Dire tor: Antho ny V Adarsh s Not Available [facility] (Lab) [address] [facility], [place], [address], 11/07/2023 13:53:00 04/09/20 23 04/09/2023 US, obste tric, follo w-up No observ ation record ed. [facility] [address], [place], [address], 04/09/2023 13:05:17 04/09/20 23 04/09/2023 US, obste tric, follo w-up No observ ation record ed. SARAH Drake [address], [place], [address], 04/10/2023 10:47:37 Result Notes None recorded. Problems Name Problem SNOMED Code Status Onset Date Resolution Date Notes Provider Name and Address Organization Details Recorded Time Hypothyr oidism 69434277 Active increase d to 175mcg on 03/17 - rpt 4 wks? Lloyd Perez [facility] 3 13:22:11 Hypothyr oidism 95709302 Completed increase d to 175mcg on 03/17 - rpt 4 wks? [facility] 13:22:11 RhD negative 381842879 Completed rhogam at 28 wks Lloyd Perez [facility] 3 13:22:11 Carrier of cystic fibrosis gene mutation 889934282 Completed Pt/FOB decline testing at this time Lloyd Perez [facility] 3 13:22:11 Carrier of cystic fibrosis gene mutation 886444837 Active Pt/FOB decline testing at this time Lloyd Perez [facility] 3 13:22:11 RhD negative 318428577 Active rhogam at 28 wks Lloyd Perez [facility] 3 13:22:11 Disorder of lumbar spine 455587791 Active L4 or L5 slipped/ missing disk- need imaging, anesthes ia consult- 10/11/20 [facility] - records received and sent to L&D Lloyd Perez [facility] 3 13:22:11 Disorder of lumbar spine 739287430 Completed L4 or L5 slipped/ missing disk- need imaging, anesthes ia consult- 10/11/20 Efrem' s - records received and sent to L&D Lloyd Perez [facility] 3 13:22:11 Mixed anxiety and depressi ve disorder 577914382 Active 2021 Lloyd Perez [facility] 3 13:22:11 Hypothyr oidism in pregnanc y 091528251 Active 2021 Yael Rader MD [address], [place], [address], [facility] 2 16:24:37 Antenata l care: history of infertil ity 078089672 Active 2021 Yael Rader MD [address], [place], [address], [facility] 2 16:24:47 Vaccinat ion not done 0449255058 9108 Active 2021 Yael Rader MD [address], [place], [address], [facility] 2 16:25:03 Mixed anxiety and depressi ve disorder 627589253 Completed 2021 Lloyd Perez [facility] 3 13:22:11 Pregnanc y 38504198 Completed 202205/08/2023 Lloyd Perez [facility] 3 13:22:20 Problem Notes None recorded. Procedures Surgical History Date Name Laterality Status Provider Name and Address Organization Details Recorded Time 09/23/2022 Date of Last Pap Smear completed Nathalie [facility] 11/04/2023 14:48:06 Imaging Results None recorded. Procedure Notes None recorded. Medical Equipment None Reported. Allergies Allergen ID Allergen Name Allergen Category Reaction Reaction Severity Criticality Documentation Date Start Date Code Code System Note Provider Name and Address Organization Details Recorded Time 91896 Substance with sulfonami de structure and antibacte rial mechanism of action (substanc e) medicatio n Not available Not available Not available 11/04/2023 41672 8003 SNOMED Nathalie Peterson [facility] 4 15:03:17 Medications Name Sig Start [...] Updated DateTime 11/04/2023 157.48 cm 29.8 kg/m2 36542.56 g 101/67 mm[Hg] Nathalie Peterson [facility] 11/04/2023 15:03:09 Date Recorded Body height Body mass index (BMI) Body weight Systolic And Diastolic Provider Name and Address Organization Details Last Updated DateTime 04/09/2023 157.48 cm 36.2 kg/m2 03901.289 26 g 109/70 mm[Hg] Rosmery Louis [facility] 04/09/2023 12:18:32 Date Recorded Body height Body mass index (BMI) Body weight Systolic And Diastolic Provider Name and Address Organization Details Last Updated DateTime 04/16/2023 157.48 cm 36.2 kg/m2 44493.289 26 g 107/70 mm[Hg] [facility] 04/16/2023 16:24:33 Date Recorded Body height Body mass index (BMI) Body weight Systolic And Diastolic Provider Name and Address Organization Details Last Updated DateTime 04/23/2023 157.48 cm 36.4 kg/m2 94170.881 63 g 114/76 mm[Hg] [facility] 04/23/2023 16:24:35 Date Recorded Body height Body mass index (BMI) Body weight Systolic And Diastolic Provider Name and Address Organization Details Last Updated DateTime 05/27/2023 157.48 cm 31.6 kg/m2 55341.48 g 119/71 mm[Hg] [facility] 05/27/2023 12:25:13 Social History Question Answer Notes LastModified by [facility] Details LastModified Time Tobacco Smoking Status Never Smoker [facility] 03/25/2022 09:22:51 If You Are , What Was Your Level Of Alcohol Consumption Prior To ? None Information not available 03/25/2022 Has Tobacco Cessation Counseling Been Provided? No Information not available 03/25/2022 Sex: Female Functional Status Question Answer Note LastModified by [facility] Details LastModified Time Do you use any [...] (Food, seasonal, environmental ) N Other N Drug/Latex Allergies/Reactions N Blood Transfusion N Breast Cancer N Dermatologic Disorders N Lung Disease N Defects or Inherited Disease N Breast Problem N Gestational Diabetes N Hematologic disorders N Anesthesia Complications N History of STI N Deep Vein Thrombosis N Polycystic ovary syndrome Y Anxiety Disorder Y Autoimmune disease N Arthritis N Polyps N Infertility N Acid Reflux (GERD) N History of abnormal pap N Cancer N Varicosities N Stroke N Neurologic/Epilepsy N Endometriosis N High Cholesterol N Fibromyalgia N Headaches N Kidney Disease N Heart Problems N Thyroid Problems Y Kidney or Bladder Problems N GI Problems N Eating Disorder N Anemia [...] ICD10 Code Diagnosis IMO Codes Diagnosis Note [id number] Yael Rader MD [place] [address],[place] [address] 03/25/2022 09:39:33 03/25/2022 11:22:02 Missed period 43132201 N92.5 Polycystic ovary syndrome 504363695 E28.2 Trying to conceive 52360 9001 Z31.9 Hypothyroidism 26331926 E03.9 Body mass index 30+ - obesity 258592132 Z68.33 Vaccination not done 920 9997795 9108 Z28.9 COVID Mixed anxi ety and depressive disorder 909063646 F41.8 [id number] Yael Rader MD [place] [address],[place] [address] 09/23/2022 14:40:38 09/23/2022 15:29:29 [id number] Yael Rader MD [place] [address] [place] [address] 09/23/2022 15:26:20 10/05/2022 18:42:22 test positive 648700656 Z32.01 care: history of infertility 002920037 O09.01 Hypothyroi dism in 932979281 E03.9 Mixed anxi ety and depressive disorder 554273922 F41.8 Vaccination not done 829 3902690 9108 Z28.9 COVID Nausea and vomiting 1693 1999 R11.2 Venereal d isease screening 444237832 Z11.3 [id number] Yael Rader MD [place] [address],[place] [address] 10/22/2022 11:19:05 10/22/2022 11:57:05 screening 451971076 Z36.82 [id number] Yael Rader MD [place] [address],[place] [address] 10/22/2022 11:20:00 10/23/2022 11:13:40 Routine care 857233857 Z34.91 Hypothyroi dism in 245152220 E03.9 Mixed anxi ety and depressive disorder 790768075 F41.8 Nausea and vomiting 1693 1999 R11.2 [id number] Yael Rader MD [place] [address],[place] [address] 11/19/2022 12:05:42 11/19/2022 13:33:18 care: history of infertility 125211552 O09.01 Hypothyroi dism in 973741513 E03.9 Hyperemesi s gravidarum 00863679 O21.0 [id number] Yael Rader MD [place] [address],[place] [address] 12/17/2022 10:18:27 12/17/2022 12:11:51 screening for malformation 213138159 Z36.3 [id number] Yael Rader MD [place] [address],[place] [address] 12/17/2022 10:18:46 12/17/2022 12:28:00 Hypothyroidism in 116460986 E03.9 care: history of infertility 823904346 O09.01 [id number] Yael Rader MD [place] [address],[place] [address] 01/15/2023 11:26:34 01/15/2023 14:18:55 [id number] Yael Rader MD [place] [address],[place] [address] 02/12/2023 10:18:26 02/17/2023 14:14:44 Routine care 175885845 Z34.91 [id number] Yael Rader MD [place] [address],[place] [address] 02/26/2023 11:40:34 02/26/2023 12:18:14 Routine care 132845896 Z34.91 Hypothyroi dism in 097284894 E03.9 [id number] Yael Rader MD [place] [address],[place] [address] 03/12/2023 10:20:56 03/12/2023 11:13:53 care: history of infertility 754420240 O09.01 Disorder o f lumbar spine 966049302 M53.9 Hypothyroidism 31804416 E03.9 [id number] Yael Rader MD [place] [address],[place] [address] 03/26/2023 16:12:42 03/31/2023 15:55:51 Routine care 645000103 Z34.91 Hypothyroidism 11049909 E03.9 Disorder o f lumbar spine 729697423 M53.9 [id number] Yael Rader MD [place] [address],[place] [address] 04/09/2023 11:17:13 04/09/2023 12:06:36 Uterine size for dates discrepancy 782388535 O26.849 [id number] Yael Rader MD [place] [address],[place] [address] 04/09/2023 11:19:25 04/09/2023 13:52:59 Hypothyroidism 61933267 E03.9 care: history of infertility 862021086 O09.01 Disorder o f lumbar spine 714537220 M53.9 [id number] Yael Rader MD [place] [address],[place] [address] 04/16/2023 16:15:07 04/16/2023 16:54:50 care: history of infertility 544201372 O09.01 Disorder o f lumbar spine 585090339 M53.9 Hypothyroidism 04858138 E03.9 [id number] Yael Rader MD [place] [address],[place] [address] 04/23/2023 16:16:03 04/30/2023 13:14:18 Routine care 488232325 Z34.91 [id number] Yael Rader MD [place] [address],[place] [address] 05/27/2023 12:08:50 05/27/2023 14:37:18 Hypothyroidism 69310343 E03.9 care 69561187 8 Z39.2 Initial pr escription of oral contraception 495616939 Z30.011 [id number] ERIKA Boothe [place] [address],[place] [address] 11/04/2023 14:47:09 11/04/2023 15:38:28 Venereal disease screening 041263012 Z11.3 Sexually t ransmitted infectious disease 7576386 A64 Primary he rpes simplex infection of genitalia 248001436 A60.00 suspect primary HSV outbreakHS V PCR [...] ID Guarantor Name 11/06/2023 1 [place] [id number] Adriana E Pompa [id number] Amara Pompa 01/15/2023 2 [place] [id number] Adriana Pompa [id number] Amara Pompa 11/06/2023 2 [place] [facility] Amara Pompa [id number] Amara Pompa Notes Date Note Type Note Provider Name and Address Organization Details Recorded Time 04/09/2023 text/html Generic HPI TemplateReported by Patient Yael Rader MD [address], [place], [address], [facility] 04/09/2023 13:39:41 04/16/2023 text/html Generic HPI TemplateReported by Patient Yael Rader MD [address], [place], [address], [facility] 04/16/2023 16:53:49 04/23/2023 text/html Generic HPI TemplateReported by Patient Yael Rader MD [address], [place], [address], [facility] 04/29/2023 21:25:51 05/27/2023 text/html VisitReported by [...] Pain- none. Bowel and bladder function normal. [place] score 8 Periodnot yet Annual due : now, last 01/2022 Concerns: none Yael Rader MD [address], [place], [address], [facility] 05/27/2023 14:12:14 11/04/2023 text/html 23yo [id number] for evaluation of vulvar irritation/lesionssym ptoms started last week. Used OTC monistat which made the burning worse. Feels like cuts throughout the vulva. Went to urgent care on , treated for a yeast infection with fluconazole but they did not do an exam.she states her partner also has bumps/irritation on his genitalsneg discharge/odorsneg n/v/fneg pelvic pain ERIKA Boothe [address], [place], [address], [facility] 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 Problem Name Start Date End Date Resolution Snomed Code Not e Carrier of cystic fibrosis gene mutation 408677614 Pt/FO B decline testing at this time RhD negative 606181245 rhogam at 28 wks Hypothyroidism 01410396 incre ased to 175mcg on 03/17 - rpt 4 wks? Mixed anxiety and depressive disorder 09/23/2022 553746344 Disorder of lumbar spine 721836738 L4 or L5 slipped/missing disk- need imaging, [...] Date Ultra Sound Latest Days Gestation 0 [email or web address] 10/22/2022 05/05/20 23 0 Pre- Flowsheet Flowsheet Date 10/22/2022 Kay Score Blood Edema Fundus Height Fundus Units Glucose Ketones Leukocytes Nitrite Labor Signs Protein Cervic Dilation Cervic Effacement Cervic Station neg none none trace Type Weight in lbs Pre/Post Dialysis Refused Weight 178.322041253977 BP Diastolic BP Location Tested BP Systolic [...] Weight in lbs Pre/Post Dialysis Refused Weight 184.785988929587 BP Diastolic BP Location Tested BP Systolic BP Type 76 119 Fetus Heart Rate Present A 140 Fetus Movement A Yes Comments Doing ok. Still a lot of N/V , sofran not really helping much. Bad GERD- will start pepcid. Denies UTI sx. TSH order- will do at [facility]. Is a CF carrier, they decline testing [...] Weight in lbs Pre/Post Dialysis Refused Weight 178.997243983716 BP Diastolic BP Location Tested BP Systolic [...] Weight in lbs Pre/Post Dialysis Refused Weight 189.436933235109 BP Diastolic BP Location Tested BP Systolic [...] Weight in lbs Pre/Post Dialysis Refused Weight 197.186498941116 BP Diastolic BP Location Tested BP Systolic [...] Weight in lbs Pre/Post Dialysis Refused Weight 196.706758144368 BP Diastolic BP Location Tested BP Systolic [...] Weight in lbs Pre/Post Dialysis Refused Weight 199.261713096393 BP Diastolic BP Location Tested BP Systolic [...] Weight in lbs Pre/Post Dialysis Refused Weight 198.915110478822 BP Diastolic BP Location Tested BP Systolic [...] Weight in lbs Pre/Post Dialysis Refused Weight 198.140735667837 BP Diastolic BP Location Tested BP Systolic [...] Weight in lbs Pre/Post Dialysis Refused Weight 198.099330550732 BP Diastolic BP Location Tested BP Systolic [...] Weight in lbs Pre/Post Dialysis Refused Weight 199.954722299585 BP Diastolic BP Location Tested BP Systolic [...] Estim ated Date of Delivery false Thalassemia (Nigerien, Bengali, Mediterranean, Or Background): MCV < 80 false Neural Tube Defect (Meningomyelocele, Spina Bifi da, Or Anencephaly) false Congenital Heart Defect false Down Syndrome false Kishore-Sachs (eg, Pentecostalism, Cajun, Hungarian-Marshallese) f alse Karissa Disease false Sickle Cell [...]
--- OUTSIDE RECORDS SUMMARY | 2025-09-26 08:32 | XMS_ITS | Encounter Summary ---
Author Organization [facility] Address [address] [place] [address] Phone Care Team Providers Care Sponsorship Coordinator Name Role Phone Nupur Noonan MD Primary Care Provider [phone] Becki Randall MD Primary Care Provider + [phone] Brenda Stringer MD Unavailable [phone] Esther Aguilar MD Unavailable [phone] José Dominguez Unavailable Frankie Jewell MD Unavailable [phone] Encounter Details Date Type Department Care Team (Late st Contact Info) Description 08/22/2017 Orders Only [facility] [place] [address] Becki Randall MD [address] [place] [id number] Social History Tobacco Use Types Packs/Day Years Used Date Smoking Tobacco: Never Assessed Comments Unknown Sex and Gender Information Value Date Recorded Sex Assigned at Not on file Legal Sex Female 3:39 PM SERVICE CENTER 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 Gender Identity Not on file Sexual Orientation Not on file documented as of this encounter Plan of Treatment Not on file documented as of this encounter Procedures Procedure Name Priority Date/Time Associated Diagnosis Comments SCAN - LABS 08/22/2017 2:39 PM SERVICE CENTER 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 documented in this encounter Results * SCAN - LABS (08/22/2017 2:39 PM SERVICE CENTER 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) us Becki Randall MD Final Resu lt documented in this encounter Visit Diagnoses Not on filedocumented in this encounter Care Teams Sponsorship Coordinator Relationship Specialty Start Date End Date Nupur Noonan MD [address] [place] [address] PCP - General 01/07/17 10/13/17 Becki Randall MD [address] [place] [address] PCP - General Internal Medicine 10/14/17 Brenda Stringer MD [address] [place] [address] Gynecology 10/14/17 Esther Aguilar MD [address] [place] [address] Surgeon Anesthesiology 10/14/17 José Dominguez OD [address] [place] [address] Optometry 10/14/17 Frankie Jewell MD [address] [place] [address] Referring Physician Neurosurgery 10/16/20 documented as of this encounter
--- OUTSIDE RECORDS SUMMARY | 2025-09-26 08:32 | XMS_ITS | Clinical Summary ---
Author Organization [facility] Address [address] [place] [address] Care Team Providers Care Stores Assistant Name Role Phone Unavailable Primary Care Provider Unavailabl e Source Comments [facility],non-owned Affiliates and Associated Physician Practices is amultiple site organization consisting of ambulatory clinics and hospital sitesin [place], [place], [place] and [place]. This disclosure is being madepursuant to the Care Everywhere program and may not contain all information available regarding this patient. Last updated 18.[facility] Allergies Active Allergy Reactions Criticality Noted Date [...]
--- OUTSIDE RECORDS SUMMARY | 2025-09-26 08:32 | XMS_ITS | Encounter Summary ---
Author Organization [facility] Address [address] [place] [address] Phone Care Team Providers Care Weaver Dobby Loom Name Role Phone Nupur Noonan MD Primary Care Provider [phone] Becki Randall MD Primary Care Provider + [phone] Brenda Stringer MD Unavailable [phone] Esther Aguilar MD Unavailable [phone] José Dominguez Unavailable Frankie Jewell MD Unavailable [phone] Encounter Details Date Type Department Care Team (Late st Contact Info) Description 08/22/2017 Orders Only [facility] [address] [place] [address] Becki Randall MD [address] [place] [id number] Social History Tobacco Use Types Packs/Day Years Used Date Smoking Tobacco: Never Assessed Comments Unknown Sex and Gender Information Value Date Recorded Sex Assigned at Not on file Legal Sex Female 3:39 PM FLOWER ARRANGER Gender Identity Not on file Sexual Orientation Not on file documented as of this encounter Plan of Treatment Not on file documented as of this encounter Procedures Procedure Name Priority Date/Time Associated Diagnosis Comments SCAN - LABS 08/22/2017 2:40 PM FLOWER ARRANGER documented in this encounter Results * SCAN - LABS (08/22/2017 2:40 PM FLOWER ARRANGER) us Becki Randall MD Final Resu lt documented in this encounter Visit Diagnoses Not on filedocumented in this encounter Care Teams Weaver Dobby Loom Relationship Specialty Start Date End Date Nupur Noonan MD [address] [place] [address] PCP - General 01/07/17 10/13/17 Becki Randall MD [address] [place] [address] PCP - General Internal Medicine 10/14/17 Brenda Stringer MD [address] [place] [address] Gynecology 10/14/17 Esther Aguilar MD [address] [place] [address] Surgeon Anesthesiology 10/14/17 José Dominguez OD [address] [place] [address] Optometry 10/14/17 Frankie Jewell MD [address] [place] [address] Referring Physician Neurosurgery 10/16/20 documented as of this encounter
--- OUTSIDE RECORDS SUMMARY | 2025-09-26 08:32 | XMS_ITS | Encounter Summary ---
Author Organization [facility] Address [address] [place] [address] Phone Care Team Providers Care Spray Worker Name Role Phone Becki Randall MD Primary Care Provider [phone] Brenda Stringer MD Unavailable [phone] Esther Aguilar MD Unavailable [phone] José Dominguez OD Unavailable Frankie Jewell MD Unavailable [phone] Encounter Details Date Type Department Care Team (Late st Contact Info) Description 09/27/2020 Orders Only [facility] [address] [place] [address] Scanning, Provider Social History Tobacco Use Types Packs/Day Years Used Date Smoking Tobacco: Never Smokeless Tobacco: Never Alcohol Use Standard Drinks/Week Comments Yes 0 (1 standard drink = 0.6 oz pur e alcohol) occassional Comments No Sex and Gender Information Value Date Recorded Sex Assigned at Not on file Legal Sex Female 3:39 PM COMMUNICATIONS FIELD 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
--- OUTSIDE RECORDS SUMMARY | 2025-09-26 08:32 | XMS_ITS | Clinical Summary ---
Author Organization [facility] Address [address] [place] [address] Phone Care Team Providers Care Forest Pathologist Name Role Phone Raulito Parker MD Unavailable Torri Hopson APRN, CNP Primary Care Provider [phone] Allergies Active Allergy Reactions Criticality Noted Date Comments Sulfamethoxazole Hives Medium 04/27/2020 Reaction: 8, 99 hives, Medications levothyroxine (SYNTHROID) 50 MCG TabletIndication s:Hypothyroidism , unspecified type Take 1 Tablet by mouth daily. 90 Tablet 3 03/18/2025 Active Active Problems Problem Noted Date Diagnosed Date Calculus of gallbladder with acute and chronic cholecystitis without obstruction 08/22/2023 Family History Medical History Relation Name Comments No Known Problems Brother No Known Problems Daughter No Known Problems Father Thyroid Disease Maternal Aunt Grace Cancer Maternal Grandfather Ace Lung Lung Cancer Maternal Grandfather Ace Cancer Maternal Grandmother Fatoumata Uterine Diabetes Maternal Grandmother Fatoumata Hypertension Maternal Grandmother Fatoumata Thyroid Disease Maternal Grandmother Fatoumata Uterine Cancer Maternal Grandmother Fatoumata Hypothyroidism Mother Adriaan Thyroid Disease Mother Adriana Cancer Paternal Grandfather [...] = 0.6 oz pur e alcohol) rare [facility] Utilities Answer Date Recorded In the past 12 months has e electric, gas, oil, or water company [...] 11/22/2024 How often do you attend chur ch or pentecostalism services? Never 11/22/2024 Do you belong to any clubs o r organizations such as muslim groups, unions, fraternal or athletic groups, or [...] Total Score - Questions 1-9 0 11/06 [facility] [place] of Occupat ional Health - Occupational Stress Questionnaire Answer Date Recorded [...] any time in the past 12 [facility], were you homeless or living in a long-term (including now)? No 11/22/2024 Sexually Active Control [...] Care Team (Late st Contact Info) Description 10/21/2025 8:20 AM CERAMIC DESIGNER Office Visit [facility] - Family Medicine [facility] [address] [place] [address] Oehl, Torri N, TRAFFIC WORKER, CEMENTER HAND [address] [facility] [address] [place] [address] Health Maintenance Due Date Last Done Comments Varicella Immunization (1 of 2 - 13+ 2-dose series) 2011 Pap Smear 2019 Influenza Immunization (#1) 2025 12/0 12/2019, 07/12/2015, 07/20/2014, Additional history exists SARS-COV-2 Immunization (2024- season) 2025 Respiratory Syncytial Virus (RSV) Immunization (Adult) (1 - 1-dose 75+ series) 2073 Hepatitis B Immunization Completed 999, 1998, 1998 Meningococcal Immunization (ACWY) Completed 08/30/2014, 08/21/2011 DTaP/Tdap/Td Immunization Discontinued 2022, 04/17/2020, 08/21/2010, Additional history exists TdaP Immunization Completed 04/23/2023, , 08/21/2010 Hepatitis C Virus (HCV) Screening Completed 11/04/2023, 10/22/2022 Human Papillomavirus (HPV) Immunization (No Doses Required) Completed Pneumococcal Immunization Combined Aged Out No longer eligible based on patient's age to complete this topic Rotavirus Immunization Aged Out No lo nger eligible based on patient's age to complete this topic Insurance MEDICAID [place] Care Teams Forest Pathologist Relationship Specialty Start Date End Date Mark AnthonyJanuary N, TRAFFIC WORKER, CEMENTER HAND 2 [facility] [address] [place] [address] PCP - General Advanced Practice Nurse 11/23/24 Raulito Parker MD [address] [facility] [address] [place] [address] Consulting Physician Colon and Rectal Surgery 07/30/23
--- OUTSIDE RECORDS SUMMARY | 2025-09-26 08:32 | XMS_ITS | Encounter Summary ---
Author Organization [facility] Address [address] [place] [address] Phone Care Team Providers Care Counter Roller Name Role Phone Nupur Noonan MD Primary Care Provider [phone] Becki Randall MD Primary Care Provider + [phone] Brenda Stringer MD Unavailable [phone] Esther Aguilar MD Unavailable [phone] José Dominguez Unavailable Frankie Jewell MD Unavailable [phone] Encounter Details Date Type Department Care Team (Late st Contact Info) Description 08/22/2017 Orders Only [facility] 1 [place] [address] Becki Randall MD [address] [place] [id number] Social History Tobacco Use Types Packs/Day Years Used Date Smoking Tobacco: Never Assessed Comments Unknown Sex and Gender Information Value Date Recorded Sex Assigned at Not on file Legal Sex Female 3:39 PM DEPARTMENT TRAFFIC FREIGHT ROUTER Gender Identity Not on file Sexual Orientation Not on file documented as of this encounter Plan of Treatment Not on file documented as of this encounter Procedures Procedure Name Priority Date/Time Associated Diagnosis Comments SCAN - LABS 08/22/2017 2:39 PM DEPARTMENT TRAFFIC FREIGHT ROUTER documented in this encounter Results * SCAN - LABS (08/22/2017 2:39 PM DEPARTMENT TRAFFIC FREIGHT ROUTER) us Becki Randall MD Final Resu lt documented in this encounter Visit Diagnoses Not on filedocumented in this encounter Care Teams Counter Roller Relationship Specialty Start Date End Date Nupur Noonan MD [address] [place] [address] PCP - General 01/07/17 10/13/17 Becki Randall MD [address] [place] [address] PCP - General Internal Medicine 10/14/17 Brenda Stringer MD [address] [place] [address] Gynecology 10/14/17 Esther Aguilar MD [address] [place] [address] Surgeon Anesthesiology 10/14/17 José Dominguez OD [address] [place] [address] Optometry 10/14/17 Frankie Jewell MD [address] [place] [address] Referring Physician Neurosurgery 10/16/20 documented as of this encounter
--- OUTSIDE RECORDS SUMMARY | 2025-09-26 08:32 | XMS_ITS | Encounter Summary ---
Author Organization [facility] Address [address] [place] [address] Phone Care Team Providers Care Enforcement Safety Officer Name Role Phone Nupur Noonan MD Primary Care Provider [phone] Becki Randall MD Primary Care Provider + [phone] Brenda Stringer MD Unavailable [phone] Esther Aguilar MD Unavailable [phone] José Dominguez Unavailable Frankie Jewell MD Unavailable [phone] Encounter Details Date Type Department Care Team (Late st Contact Info) Description 08/22/2017 Orders Only [facility] 1 [place] [address] Becki Randall MD [address] [place] [id number] Social History Tobacco Use Types Packs/Day Years Used Date Smoking Tobacco: Never Assessed Comments Unknown Sex and Gender Information Value Date Recorded Sex Assigned at Not on file Legal Sex Female 3:39 PM CIRCULATION ANALYST Gender Identity Not on file Sexual Orientation Not on file documented as of this encounter Plan of Treatment Not on file documented as of this encounter Procedures Procedure Name Priority Date/Time Associated Diagnosis Comments SCAN - RADIOLOGY/IMAGING 08/22/2017 2:40 PM CIRCULATION ANALYST documented in this encounter Results * SCAN - RADIOLOGY/IMAGING (08/22/2017 2:40 PM CIRCULATION ANALYST) Anatomical Region Laterality Modality Other us Becki Randall MD Final Resu lt documented in this encounter Visit Diagnoses Not on filedocumented in this encounter Care Teams Enforcement Safety Officer Relationship Specialty Start Date End Date Nupur Noonan MD [address] [place] [address] PCP - General 01/07/17 10/13/17 Becki Randall MD [address] [place] [address] PCP - General Internal Medicine 10/14/17 Brenda Stringer MD [address] [place], [place] [address] Gynecology 10/14/17 Esther Aguilar MD [address] [place], [place] [address] Surgeon Anesthesiology 10/14/17 José Dominguez OD [address] [place], [place] [address] Optometry 10/14/17 Frankie Jewell MD [address] [place] [address] Referring Physician Neurosurgery 10/16/20 documented as of this encounter
--- OUTSIDE RECORDS SUMMARY | 2025-09-26 08:32 | XMS_ITS | Clinical Summary ---
Author Organization [facility] Address [address] [place] [address] Phone Care Team Providers Care Program Counselor Name Role Phone Becki Randall MD Primary Care Provider Allergies Active Allergy Reactions Criticality Noted Date [...] on file Legal Sex Female 1:51 PM PROGRAMMER ANALYST CONSULTANT Gender Identity Not on file Sexual Orientation Not on file Last Filed Vital Signs Vital Sign Reading Time Taken Comments Blood Pressure 96/81 11/28/2020 10:57 AM PROGRAMMER ANALYST CONSULTANT Pulse 89 11/28/2020 10:57 AM PROGRAMMER ANALYST CONSULTANT Temperature 37 C (98.6 F) 11/28/2020 10:57 AM PROGRAMMER ANALYST CONSULTANT Respiratory Rate - - Oxygen Saturation - - Inhaled Oxygen Concentration - - Weight 88 kg (194 lb) 11/28/2020 10:57 AM PROGRAMMER ANALYST CONSULTANT Height 157.5 cm (5' 2) 11/28/2020 10:57 AM PROGRAMMER ANALYST CONSULTANT Body Mass Index 35.48 11/28/2020 10:57 AM PROGRAMMER ANALYST CONSULTANT Plan of Treatment Health Maintenance Due Date Last Done Comments DTAP/TDAP/TD VACCINES (1 - Tdap) 2017 HEPATITIS B VACCINES (1 of 3 - 19+ 3-dose series) 05/06 CERVICAL CANCER SCREENING 2019 HPV/Cotest (21-29) 2019 PAP SMEAR 2019 INFLUENZA VACCINE (#1) 2025 HPV VACCINES (No Doses Required) Completed Care Teams Program Counselor Relationship Specialty Start Date End Date Becki Randall MD [address] [place] [address] PCP - General Internal Medicine 10/18/20
--- OUTSIDE RECORDS SUMMARY | 2025-09-26 08:32 | XMS_ITS | Clinical Summary ---
Author Organization [facility] [address] Address [address] [place] [address] Phone Care Team Providers Care Supervisor Phosphorus Processing Name Role Phone Becki Randall MD Primary Care Provider [phone] Brenda Stringer MD Unavailable [phone] Esther Aguilar MD Unavailable [phone] José Dominguez OD Unavailable Frankie Jewell MD Unavailable [phone] Allergies Active Allergy Reactions Criticality Noted [...] (03/19/2022): Added automatically from request for surgery [id number] Assessment & Plan (07/07/2023 8:56 PM CDT): Continue omeprazole as rxd, see plan for RUQ pain above. Nausea and vomiting 08/15/2021 Assessment & Plan (08/15/2021 5:00 PM COOK PRESSURE): After discussion today, we will go ahead [...] 08/22/2020 Assessment & Plan (08/22/2020 3:32 PM COOK PRESSURE): Patient presents with acute low back pain [...] changes. Continue Omeprazole daily and Tums PRN. [place] diet- low acid, no greasy or spicy. [...] (03/19/2022): Added automatically from request for surgery [id number] Bloody stools 03/08/2022 07/07/2023 Assessment & Plan [...] pain after fall down 1 stair at [facility] Periodontal disease 10/14/2017 07/07/20 23 Infectious [...] on file Legal Sex Female 3:39 PM COOK PRESSURE Gender Identity Not on file Sexual Orientation [...] complete this topic Insurance [employer] [employer] [place] [facility] [employer] [place] [employer] [facility] Advance Directives For more information, please contact: [phone] Documents on File Type Date Recorded Patient Furnace Tender Expl anation ADVANCE DIRECTIVE 04/17/2020 POWER [employer] Care Teams Supervisor Phosphorus Processing Relationship Specialty Start Date End Date Becki Randall MD PCP - General Internal Medicine 10/14/17 Brenda Stringer MD [address] [address] Gynecology 10/14/17 Esther Aguilar MD [address] [address] Surgeon Anesthesiology 10/14/17 José Dominguez OD [address] [place] [address] Optometry 10/14/17 Frankie Jewell MD [address] [place] [place] [address] Referring Physician Neurosurgery 10/16/20
--- OUTSIDE RECORDS SUMMARY | 2025-09-26 08:32 | XMS_ITS | Encounter Summary ---
Author Organization [facility] Address [address] [place] [address] Phone Care Team Providers Care Masonry Teacher Name Role Phone Nupur Noonan MD Primary Care Provider [phone] Becki Randall MD Primary Care Provider + [phone] Brenda Stringer MD Unavailable [phone] Esther Aguilar MD Unavailable [phone] José Dominguez Unavailable Frankie Jewell MD Unavailable [phone] Encounter Details Date Type Department Care Team (Late st Contact Info) Description 08/22/2017 Orders Only [facility] [address] [place] [address] Becki Randall MD [address] [place] [id number] Social History Tobacco Use Types Packs/Day Years Used Date Smoking Tobacco: Never Assessed Comments Unknown Sex and Gender Information Value Date Recorded Sex Assigned at Not on file Legal Sex Female 3:39 PM RN DIABETES Gender Identity Not on file Sexual Orientation Not on file documented as of this encounter Plan of Treatment Not on file documented as of this encounter Procedures Procedure Name Priority Date/Time Associated Diagnosis Comments SCAN - LABS 08/22/2017 2:39 PM RN DIABETES documented in this encounter Results * SCAN - LABS (08/22/2017 2:39 PM RN DIABETES) us Becki Randall MD Final Resu lt documented in this encounter Visit Diagnoses Not on filedocumented in this encounter Care Teams Masonry Teacher Relationship Specialty Start Date End Date Nupur Noonan MD [address] [place] [address] PCP - General 01/07/17 10/13/17 Becki Randall MD [address] [place] [address] PCP - General Internal Medicine 10/14/17 Brenda Stringer MD [address] [place] [address] Gynecology 10/14/17 Esther Aguilar MD [address] [place] [address] Surgeon Anesthesiology 10/14/17 José Dominguez OD [address] [place] [address] Optometry 10/14/17 Frankie Jewell MD [address] [place] [place] [address] Referring Physician Neurosurgery 10/16/20 documented as of this encounter
[2025-09-26 08:38] LABS: EDUAAPPEAR Cloudy; EDUABILI Negative (Negative); EDUABLOOD Negative (Negative); EDUACOLOR1 Yellow; EDUAGLUCOSE Negative (Negative); EDUAKETONE Negative (Negative); EDUALEUKO 1+ (Negative); EDUANITRATE Negative (Negative); EDUAPH 6.5; EDUAPROTEIN Negative (Negative); EDUASPGRAVITY 1.025; EDUAUROBILI 0.2
[2025-09-26 09:05] LABS: BEDSIDEPREGUCG Negative (Negative)
[2025-09-26 20:00] LABS: Trichomonas Vag PCR NOT DETECTED (NOT DETECTE)
== END 2025-09-26 09:17 | disposition home or self-care (01) ==
PROVIDERS: Emergency Provider Nurse Practitioner Family
DX: N76.0 Acute vaginitis (principal); Z11.3 Encounter for screening for infections with a predominantly sexual mode of transmission; E28.2 Polycystic ovarian syndrome; E03.9 Hypothyroidism, unspecified; K21.9 Gastro-esophageal reflux disease without esophagitis
CPT/HCPCS: 81003; 81025; 87070; 87086; 87491; 87591; 87661; 87798; 99213; G0463